=== PATIENT | male | born 1925 | race Caucasian/White ===

== ENCOUNTER 2017-02-27 12:13 | Inpatient (IN) | payer MEDICARE, OTHER ==
[~2017-02-27] VITALS: Ht 162.6 cm; Wt 81.6 kg
[2017-02-27 12:19] VITALS: BP 120/80
[2017-02-27] MEDS ORDERED: MILK OF MA2400 MG/10 GT (12:35)
[2017-02-27] MEDS ORDERED: ARTIFICIAL TEA1 EAC2 OP (12:35)
[2017-02-27] MEDS ORDERED: ATIVAN1 MG GT (12:35)
[2017-02-27] MEDS ORDERED: GEMFIBROZIL600 MG GT (12:35)
[2017-02-27] MEDS ORDERED: MIRALAX17 G2 GT (12:35)
[2017-02-27] MEDS ORDERED: FOLIC ACID1 MG GT (12:35)
[2017-02-27] MEDS ORDERED: NORCO 5-325 TA1 EAC1 GT (12:35)
[2017-02-27] MEDS ORDERED: MAGNESIUM OXID500 M2 GT (12:35)
[2017-02-27] MEDS ORDERED: HEPARIN SO5000 UNIT2 SUBQ (12:35)
[2017-02-27] MEDS ORDERED: LEVOTHYROXINE50 MCG GT (12:35)
[2017-02-27] MEDS ORDERED: HYDRALAZINE HCL25 M1 GT (12:35)
[2017-02-27] MEDS ORDERED: PERIDEX15 ML MM (12:37)
[2017-02-27] MEDS ORDERED: ZYPREXA ZYDIS5 MG GT (12:37)
[2017-02-27] MEDS ORDERED: PRO-STAT LIQUID30 ML GT (12:37)
[2017-02-27] MEDS ORDERED: OMEPRAZOLE20 M2 GT (12:37)
[2017-02-27 13:02] LABS: BASOPHILS % (AUTO) 1.1 % (0.0-2.0); EOSINOPHILS % (AUTO) 2.5 % (0.0-3.0); MEAN CORPUSCULAR HEMOGLOBIN 30.7 PG (27.0-31.0); MEAN CORPUSCULAR HGB CONC 31.9 G/DL (32.0-36.0); MEAN CORPUSCULAR VOLUME 96 FL (80-99); MEAN PLATELET VOLUME 10.6 FL (6.5-10.1); MONOCYTES % (AUTO) 8.4 % (1.0-10.0); NEUTROPHILS % (AUTO) 60.1 % (45.0-75.0); PLATELET COUNT 227 K/UL (150-450); RED BLOOD COUNT 4.47 M/UL (4.70-6.10); RED CELL DISTRIBUTION WIDTH 13.3 % (11.6-14.8); WHITE BLOOD COUNT 8.7 K/UL (4.8-10.8)
[2017-02-27 13:09] LABS: INR 1.1 (0.9-1.1)
[2017-02-27] MEDS ORDERED: LORazepam Inj 2mg/ml 1ml IV PRN (13:45)
[2017-02-27] MEDS ORDERED: Morphine Sulfate 4mg/ml Inj IVP PRN (13:45)
[2017-02-27] MEDS ORDERED: Miralax 17gm pkt ORAL PRN (13:45)
[2017-02-27] MEDS ORDERED: DuoNeb 0.5-3(2.5)mg/3ml neb HHN PRN (13:45)
[2017-02-27 13:56] LABS: ALANINE AMINOTRANSFERASE 12 U/L (3-41); ALBUMIN/GLOBULIN RATIO 0.9 (1.0-2.7); ANION GAP 17 (5-15); ASPARTATE AMINO TRANSFERASE 18 U/L (5-40); CALCIUM 9.9 mg/dL (8.6-10.2); CARBON DIOXIDE 24 mEQ/L (20-30); CHLORIDE 98 mEQ/L (98-107); CREATININE 0.6 mg/dL (0.7-1.2); HEMOLYSIS 4; LIPASE 9 U/L (< 60); POTASSIUM 4.5 mEQ/L (3.4-4.9); SODIUM 139 mEQ/L (135-145); TOTAL PROTEIN 7.5 g/dL (6.6-8.7)
[2017-02-27] MEDS: HydrALAZINE 25mg tab GT SCH ×2 (14:00→22:00)
[2017-02-27 14:05] LABS: APPEARANCE,URINE CLEAR; KETONES,URINE NEGATIVE (NEGATIVE); LEUKOCYTE ESTERASE ,URINE 3+ (NEGATIVE); NITRITE,URINE NEGATIVE (NEGATIVE); PH,URINE 7 (4.5-8.0); PROTEIN,URINE NEGATIVE (NEGATIVE); UROBILINOGEN,URINE NORMAL MG/DL (0.0-1.0)
[2017-02-27 14:16] LABS: BACTERIA,URINE MODERATE /HPF; RBC,URINE 15-20 /HPF (0 - 0); SQUAMOUS EPITHELIAL CELL,UR OCCASIONAL /LPF (NONE/OCC)
--- NOTE | 2017-02-27 14:51 | Emergency Room Report ---
History of Present Illness General Chief Complaint: Altered Level of Consciousness Source: Medical Record Present Illness HPI Patient presents emergency department today complaining of abdominal discomfort altered mental status. Patient was noted to be bradycardic at the alf and then sent here for further evaluation. Patient denies any fever or chest pain but he does complain of abdominal discomfort. Patient denies any nausea vomiting diarrhea chills. Symptoms noted to be moderate. No other modifying factors. No other associated signs and symptoms. No other complaints were noted. Patient's primary care physician Dr. Kobe Hernandez in no for patient had abnormal labs as well as recommended patient come in for further evaluation possibly rule out sepsis. Allergies: Coded Allergies: No Known Allergies (Unverified , 02/27/17) Patient History Past Medical History: HTN, other - Tracheostomy Past Surgical History: none Pertinent Family History: none Social History: Denies: alcohol use, drug use, smoking Reviewed Nursing Documentation: PMH: Agreed, PSxH: Agreed Nursing Documentation-PMH Past Medical History: No History, Except For Hx Hypertension: Yes Review of Systems All Other Systems: negative except mentioned in HPI Physical Exam Vital Signs Date Time Temp Pulse Resp B/P Pulse Ox O2 Delivery O2 Flow Rate FiO2 02/27/17 12:05 54 20 120/80 99 Mechanical Ventilator 02/27/17 12:18 45 Sp02 EP Interpretation: reviewed, normal General Appearance: mild distress Head: normocephalic Eyes: bilateral eye normal inspection ENT: moist mucus membranes Neck: full range of motion, supple Respiratory: normal inspection, lungs clear, normal breath sounds, no respiratory distress, no retraction, no wheezing Cardiovascular #1: regular rate, rhythm, no edema Gastrointestinal: normal inspection, normal bowel sounds, non tender, soft, no guarding, no hernia Genitourinary: no CVA tenderness Musculoskeletal: normal inspection, back normal, normal range of motion Neurologic: alert, responsive Psychiatric: normal inspection Skin: normal inspection, normal color, no rash Procedures Critical Care Time Critical Care Time Patient had a critical medical condition which untreated could potentially result in life or limb threatening injury. Total critical care time excluding procedures was approximately 45 minutes. Medical Decision Making Diagnostic Impression: Primary Impression: Acute abdominal pain Additional Impression: Bradycardia ER Course Patient presents emergency department today with acute bradycardia and abdominal discomfort. Differential considerations include acute coronary syndrome, electrolyte abnormality, infectious process just to name a few. Given the severity of the patient's presentation I felt this is a highly complex patient. This patient required extensive workup. Patient laboratory workup was not impressive. Given patient's bradycardia patient also has complicated history of the patient require admission to the hospital. Patient did receive a CT scan of the abdomen and pelvis because of the abdominal discomfort which shows evidence of acute pneumonia. Because this patient restart IV antibiotics. Blood cultures were obtained. Patient will be admitted to [facility] for further treatment. Case was discussed with Dr. Kobe Hernandez who evaluated patient emergency department. Labs Test 02/27/17 12:40 02/27/17 13:00 02/27/17 13:23 White Blood Count 8.7 K/UL (4.8-10.8) Red Blood Count 4.47 M/UL (4.70-6.10) Hemoglobin 13.7 G/DL (14.2-18.0) Hematocrit 43.0 % (42.0-52.0) Mean Corpuscular Volume 96 FL (80-99) Mean Corpuscular Hemoglobin 30.7 PG (27.0-31.0) Mean Corpuscular Hemoglobin Concent 31.9 G/DL (32.0-36.0) Red Cell Distribution Width 13.3 % (11.6-14.8) Platelet Count 227 K/UL (150-450) Mean Platelet Volume 10.6 FL (6.5-10.1) Neutrophils (%) (Auto) 60.1 % (45.0-75.0) Lymphocytes (%) (Auto) 28.0 % (20.0-45.0) Monocytes (%) (Auto) 8.4 % (1.0-10.0) Eosinophils (%) (Auto) 2.5 % (0.0-3.0) Basophils (%) (Auto) 1.1 % (0.0-2.0) Prothrombin Time 11.0 SEC (9.30-11.50) Prothromb Time International Ratio 1.1 (0.9-1.1) Activated Partial Thromboplast Time 29 SEC (23-33) Sodium Level 139 mEQ/L (135-145) Potassium Level 4.5 mEQ/L (3.4-4.9) Chloride Level 98 mEQ/L (98-107) Carbon Dioxide Level 24 mEQ/L (20-30) Anion Gap 17 (5-15) Blood Urea Nitrogen 21 mg/dL (7-23) Creatinine 0.6 mg/dL (0.7-1.2) Estimat Glomerular Filtration Rate mL/min (>60) Glucose Level 113 mg/dL (74-106) Calcium Level 9.9 mg/dL (8.6-10.2) Total Bilirubin 0.4 mg/dL (0.0-1.2) Aspartate Amino Transf (AST/SGOT) 18 U/L (5-40) Alanine Aminotransferase (ALT/SGPT) 12 U/L (3-41) Alkaline Phosphatase 110 U/L (40-129) Total Creatine Kinase 36 U/L (38-174) Total Protein 7.5 g/dL (6.6-8.7) Albumin 3.6 g/dL (3.5-5.2) Globulin 3.9 g/dL Albumin/Globulin Ratio 0.9 (1.0-2.7) Lipase 9 U/L (< 60) Lactic Acid Level 1.30 mmol/L (0.66-2.22) Urine Color Pale yellow Urine Appearance Clear Urine pH 7 (4.5-8.0) Urine Specific [place] 1.010 (1.005-1.035) Urine Protein Negative (NEGATIVE) Urine Glucose (UA) Negative (NEGATIVE) Urine Ketones Negative (NEGATIVE) Urine Occult Blood 4+ (NEGATIVE) Urine Nitrite Negative (NEGATIVE) Urine Bilirubin Negative (NEGATIVE) Urine Urobilinogen Normal MG/DL (0.0-1.0) Urine Leukocyte Esterase 3+ (NEGATIVE) Urine RBC 15-20 /HPF (0 - 0) Urine WBC 5-10 /HPF (0 - 0) Urine Squamous Epithelial Cells Occasional /LPF Urine Bacteria Moderate /HPF (NONE) EKG Diagnostic Results Rate: bradycardiac Rhythm: NSR ST Segments: no acute changes Rhythm Strip Diag. Results EP Interpretation: yes Rate: 52 Rhythm: no PVC's, no ectopy, other - bradycardia, sinus rhythm Last Vital Signs Date Time Temp Pulse Resp B/P Pulse Ox O2 Delivery O2 Flow Rate FiO2 02/27/17 12:19 20 120/80 99 Mechanical Ventilator 02/27/17 12:18 52 02/27/17 12:18 45 Status: improved Disposition: ADMITTED INPATIENT Condition: Serious Referrals: KOBE HERNANDEZ (PCP) QUAN GREENBERG M.D. Feb 27, 2017 14:51
[2017-02-27 14:57] VITALS: BP 105/41
--- NOTE | 2017-02-27 15:03 | Infectious Diseases Prog Note ---
Assessment/Plan Problems: (1) Sepsis Assessment & Plan: will start vancomycin and zosyn , send blood and sputum culture (2) Aspiration pneumonia Assessment & Plan: will send sputum culture, continue zosyn and vancomycin , monitor CXR (3) Acute and chronic respiratory failure Assessment & Plan: due to the above, intubated on mechanical ventilation , monitor ABG, and CXR (4) Chronic respiratory failure Assessment & Plan: S/P Trach, continue trach care , titrate O2 as needed (5) Acute abdominal pain Assessment & Plan: recommend CT abdomen for further eval , consult GI Subjective Allergies: Coded Allergies: No Known Allergies (Unverified , 02/27/17) Objective Vital Signs Last 24 Hour Vital Signs Date Time Temp Pulse Resp B/P Pulse Ox O2 Delivery O2 Flow Rate FiO2 02/27/17 14:57 47 20 105/41 99 Mechanical Ventilator 45 02/27/17 12:19 20 120/80 99 Mechanical Ventilator 02/27/17 12:18 52 24 Mechanical Ventilator 02/27/17 12:18 52 24 45 02/27/17 12:05 54 20 120/80 99 Mechanical Ventilator Height (Feet): 5 Height (Inches): 4.00 Weight (Pounds): 180 Laboratory Tests Test 02/27/17 12:40 02/27/17 13:00 02/27/17 13:23 White Blood Count 8.7 K/UL (4.8-10.8) Red Blood Count 4.47 M/UL (4.70-6.10) L Hemoglobin 13.7 G/DL (14.2-18.0) L Hematocrit 43.0 % (42.0-52.0) Mean Corpuscular Volume 96 FL (80-99) Mean Corpuscular Hemoglobin 30.7 PG (27.0-31.0) Mean Corpuscular Hemoglobin Concent 31.9 G/DL (32.0-36.0) L Red Cell Distribution Width 13.3 % (11.6-14.8) Platelet Count 227 K/UL (150-450) Mean Platelet Volume 10.6 FL (6.5-10.1) H Neutrophils (%) (Auto) 60.1 % (45.0-75.0) Lymphocytes (%) (Auto) 28.0 % (20.0-45.0) Monocytes (%) (Auto) 8.4 % (1.0-10.0) Eosinophils (%) (Auto) 2.5 % (0.0-3.0) Basophils (%) (Auto) 1.1 % (0.0-2.0) Prothrombin Time 11.0 SEC (9.30-11.50) Prothromb Time International Ratio 1.1 (0.9-1.1) Activated Partial Thromboplast Time 29 SEC (23-33) Sodium Level 139 mEQ/L (135-145) Potassium Level 4.5 mEQ/L (3.4-4.9) Chloride Level 98 mEQ/L (98-107) Carbon Dioxide Level 24 mEQ/L (20-30) Anion Gap 17 (5-15) H Blood Urea Nitrogen 21 mg/dL (7-23) Creatinine 0.6 mg/dL (0.7-1.2) L Estimat Glomerular Filtration Rate mL/min (>60) Glucose Level 113 mg/dL (74-106) H Calcium Level 9.9 mg/dL (8.6-10.2) Total Bilirubin 0.4 mg/dL (0.0-1.2) Aspartate Amino Transf (AST/SGOT) 18 U/L (5-40) Alanine Aminotransferase (ALT/SGPT) 12 U/L (3-41) Alkaline Phosphatase 110 U/L (40-129) Total Creatine Kinase 36 U/L (38-174) L Troponin I Pending Total Protein 7.5 g/dL (6.6-8.7) Albumin 3.6 g/dL (3.5-5.2) Globulin 3.9 g/dL Albumin/Globulin Ratio 0.9 (1.0-2.7) L Lipase 9 U/L (< 60) Lactic Acid Level 1.30 mmol/L (0.66-2.22) Urine Color Pale yellow Urine Appearance Clear Urine pH 7 (4.5-8.0) Urine Specific [place] 1.010 (1.005-1.035) Urine Protein Negative (NEGATIVE) Urine Glucose (UA) Negative (NEGATIVE) Urine Ketones Negative (NEGATIVE) Urine Occult Blood 4+ (NEGATIVE) H Urine Nitrite Negative (NEGATIVE) Urine Bilirubin Negative (NEGATIVE) Urine Urobilinogen Normal MG/DL (0.0-1.0) Urine Leukocyte Esterase 3+ (NEGATIVE) H Urine RBC 15-20 /HPF (0 - 0) H Urine WBC 5-10 /HPF (0 - 0) H Urine Squamous Epithelial Cells Occasional /LPF Urine Bacteria Moderate /HPF (NONE) H Current Medications Medications (Trade) Dose Ordered Sig/Kevin Route PRN Reason Start Time Stop Time Status Last Admin Dose Admin Acetaminophen (Tylenol) 650 mg Q4H PRN ORAL FEVER 02/27/17 13:45 03/29/17 13:44 UNV Albuterol/ Ipratropium 3 ml 3 ml EVERY 4 HOURS PRN HHN Shortness of Breath 02/27/17 13:45 03/04/17 13:44 UNV Dextrose STAT PRN IV Hypoglycemia 02/27/17 13:45 03/29/17 13:44 UNV Heparin Sodium (Porcine) (Heparin 5000 units/ml) 5,000 units EVERY 12 HOURS SUBQ 02/27/17 21:00 03/29/17 20:59 UNV Hydralazine HCl (Apresoline) 25 mg EVERY 8 HOURS GT 02/27/17 14:00 03/29/17 13:59 UNV Levothyroxine Sodium (Synthroid) 50 mcg DAILY GT 02/28/17 09:00 03/30/17 08:59 UNV Lorazepam (Ativan 2mg/ml 1ml) 2 mg EVERY 2 HOURS PRN IV For Anxiety 02/27/17 13:45 03/06/17 13:44 UNV Morphine Sulfate (Morphine Sulfate) 4 mg EVERY 4 HOURS PRN IVP Severe Pain (Pain Scale 7-10) 02/27/17 13:45 03/06/17 13:44 UNV Ondansetron HCl (Zofran) 4 mg Q6H PRN IVP Nausea & Vomiting 02/27/17 13:45 03/29/17 13:44 UNV Pantoprazole (Protonix) 40 mg DAILY IV 02/28/17 09:00 03/30/17 08:59 UNV Piperacillin Sod/ Tazobactam Sod/ Sodium Chloride (Zosyn/Sodium Chloride) 110 ml @ 27.5 mls/hr EVERY 6 HOURS IVPB 02/27/17 18:00 03/06/17 17:59 UNV Polyethylene Glycol (Miralax) 17 gm DAILYPRN PRN ORAL Constipation 02/27/17 13:45 03/29/17 13:44 UNV Vancomycin HCl/ Dextrose (Vancomycin/D5W) 275 ml @ 183.3 mls/ hr Q24H IV 02/28/17 23:00 03/05/17 22:59 ANIV Papito Don M.D. Feb 27, 2017 15:03
--- NOTE | 2017-02-27 15:05 | Diagnostic Imaging Report ---
Indication: Abdominal pain Technique: Spiral acquisitions obtained through the abdomen and pelvis. No oral contrast utilized, per emergency room physician request No IV contrast utilized, per referring physician request.. Multiplanar reconstructions were generated. Total dose length product 1038 mGycm. CTDIvol(s) 17, 13 mGy. Dose reduction achieved using automated exposure control Comparison: None Findings: There is dense consolidation in the posterior left lower lobe of the lung. Atelectatic changes are seen at both lung bases. The bones demonstrate degenerative spondylosis changes. They are osteoporotic. Lack of oral contrast severely limits assessment of the GI tract. The appendix is normal. Moderate amount of dense stool is seen throughout the colon. No evidence of diverticulosis or diverticulitis. No small bowel distention. No free or loculated intraperitoneal air or fluid is evident. There is a gastrostomy tube in good position. The distal esophagus is unremarkable. The duodenum is unremarkable. Lack of IV contrast limits assessment of the solid organs. The gallbladder contains gallstones. There is no biliary ductal dilatation. The liver is unremarkable. The pancreas is somewhat atrophic. The spleen is borderline enlarged, measuring 13.3 cm long axis dimension. The adrenals, kidneys are unremarkable. No renal or ureteral calculi, hydronephrosis, or hydroureter. The prostate is enlarged, indents the bladder floor, measures 4.5 cm AP by 6 cm transverse by 5.7 cm craniocaudad. It contains calcifications. There are small bilateral fat-containing inguinal hernias. No pelvic mass or adenopathy. Impression: Dense left lower lobe pulmonary parenchymal consolidation, likely pneumonia. Evaluation of the bowel is limited by lack of oral contrast. No definite acute enteric abnormal Possible mild constipation Gastrostomy in good position Borderline splenomegaly Prostatomegaly Cholelithiasis Incidental finding small bilateral fat-containing inguinal hernias The CT scanner at [facility] is accredited by the [employer] and the scans are performed using protocols designed to limit radiation exposure to as low as reasonably achievable to attain images of sufficient resolution adequate for diagnostic evaluation.
[2017-02-27 15:49] LABS: TROPONIN I < 0.30 ng/mL (<=0.30)
[2017-02-27] MEDS ORDERED: Cefepime HCl 1 GM in D5W 55 ML IVPB ONE (16:15)
[2017-02-27] MEDS ORDERED: Azithromycin 500 MG in D5W 275 ML IVPB ONE (16:15)
[2017-02-27] MEDS ORDERED: Vancomycin 1.5gm/D5W 250ml 325 ML IVPB ONE (16:15)
[2017-02-27] MEDS ORDERED: Azithromycin Inj IV ONE (16:48)
[2017-02-27 17:07] VITALS: BP 107/50
--- NOTE | 2017-02-27 17:16 | History and Physical Report ---
DATE OF ADMISSION: 02/27/2017 TIME SEEN: 2 p.m. CONSULTANTS: 1. Ritesh Cruz M.D. 2. Dr. Means. CHIEF COMPLAINT: Increased lethargy, weakness, fever, possible sepsis, and shortness of breath. BRIEF HISTORY: The patient is an 89-year-old male from [facility] presented with the above-mentioned diagnoses being diagnosed with aspiration pneumonia and sepsis being admitted to ICU shortly. Currently, calm, trach, vent, altered, lethargic in bed, in ICU. PAST MEDICAL HISTORY: Includes chronic respiratory failure and hypertension. PAST SURGICAL HISTORY: Tracheostomy. ALLERGIES: Denies. SOCIAL HISTORY: No smoking. No alcohol. No intravenous drug abuse. FAMILY HISTORY: Noncontributory. REVIEW OF SYSTEMS: Unavailable. PHYSICAL EXAMINATION: GENERAL: Lethargic in bed and nonverbal. VITAL SIGNS: Show temperature is not given , pulse 52, respirations 24, and blood pressure 120/80. CARDIOVASCULAR: No murmur. LUNGS: Poor air exchange. ABDOMEN: Positive bowel sounds. Soft, nontender, and nondistended. EXTREMITIES: No cyanosis, clubbing, or edema. NEUROLOGIC: The patient is flaccid in bed, not responding to questions and requests. LABORATORY DATA: Labs at this time show CBC is normal. BMP show creatinine 0.6 and glucose 113. Otherwise, BMP is normal. INR is 1.1 and PTT 29. Urinalysis showed 3+ leukocyte esterase. ASSESSMENT: 1. Respiratory failure. 2. Trach and vent. 3. Urinary tract infection. 4. Pneumonia. 5. Sepsis. 6. Hypertension. 7. Bradycardia. PLAN: 1. Continue premedications. 2. . 3. Antibiotics per Infectious Disease. 4. Blood pressure control. 5. Dietary followup. 6. Resume home medications. 7. OT, PT, and dietary evaluation. 8. CBC and BMP in the morning. 9. Dr. Cruz, Dr. Means, and Dr. Polk to consult. 10. We will continue to follow this patient medically. Saul Tang D.O. DR: RONALD JOB#: [id number] CC:
[2017-02-27] MEDS ORDERED: Cefepime 1gm vial ONE (18:00)
--- NOTE | 2017-02-27 18:02 | Consultation ---
DATE OF CONSULTATION: 02/27/2017 Infectious Disease Consultation CONSULTING PHYSICIAN: Papito Don M.D. REQUESTING PHYSICIAN: Saul Tang M.D. REASON FOR CONSULTATION: Sepsis, pneumonia, recommendation for antibiotics treatment. HISTORY OF PRESENT ILLNESS: The patient is an 89-year-old male, a longterm resident, with history of chronic respiratory failure, status post tracheostomy and hypertension was sent from longterm due to hypoxemia and altered mental status with abdominal discomfort. The patient was found to be bradycardic at the longterm and hypoxemic. He had no fever or chills. No chest pain, but complained of abdominal discomfort. The patient was evaluated in the emergency room and had a pulse of 54, was intubated, started on mechanical ventilation, and his oxygen saturation improved to 100%. The patient's x-ray of the chest was suspicious of pneumonia. So, he was started on vancomycin and Zosyn, and I was consulted by the primary provider for antibiotic treatment and further management. As of note, the patient is a poor historian, cannot provide any history, currently intubated. History was mainly obtained from the medical record. REVIEW OF SYSTEMS: Unable to obtain at this point. The patient cannot provide any history. PAST MEDICAL HISTORY: Significant for hypertension and chronic respiratory failure. PAST SURGICAL HISTORY: Negative. FAMILY HISTORY: Unable to obtain. SOCIAL HISTORY: He is longterm resident. No recent drugs, tobacco, or alcohol. ALLERGIES: He has no known drug allergy. MEDICATIONS: He is on Zosyn and vancomycin currently. For the rest of his medications, please refer to [facility]. LABORATORY DATA: Labs showed white count of 8.7, BUN of 21, and creatinine of 0.6. Urinalysis showed +3 leukocyte esterase, WBC 5 to 10, with moderate amount of bacteria. IMAGING: Chest x-ray showed questionable pneumonia. PHYSICAL EXAMINATION: VITAL SIGNS: Pulse 52, respirations 24, blood pressure 120/80, and saturation 99% on mechanical ventilation with FiO2 of 45. GENERAL: Elderly male, with tracheostomy, intubated, on mechanical ventilation, unresponsive, not in distress. HEENT: Normocephalic and atraumatic. Pupils are reactive to light. Pale sclerae. Dry oral mucosa with dry secretion. NECK: Supple with tracheostomy site looks intact. CARDIOVASCULAR: He is bradycardic. S1 and S2 positive. No murmur. LUNGS: He had diminished breathing sounds, mainly on the right side with crackles at the base. ABDOMEN: Soft, nontender, and nondistended. No organomegaly. No guarding. G-tube site looks intact. EXTREMITIES: No edema or cyanosis. SKIN: No rash or hives. ASSESSMENT AND RECOMMENDATION: 1. Sepsis, suspect due to pneumonia. We will start the patient on vancomycin and Zosyn empiric treatment. Send blood and sputum culture. 2. Aspiration pneumonia. We will send sputum culture. Continue Zosyn and vancomycin. Monitor chest x-ray. Titrate oxygen as needed. 3. Acute on chronic respiratory failure, status post intubation through his trach. Continue mechanical ventilation. Pulmonary is following. Monitor chest x-ray. 4. Acute abdominal pain. Rule out abdominal pathology. Recommend CT abdomen for further evaluation and consult GI as per primary. Thank you for the consult. Papito Don M.D. DR: JAMES JOB#: [id number] CC:
[2017-02-27 18:32] VITALS: BP 104/45
[2017-02-27 20:06] VITALS: BP 105/47
[2017-02-27 21:43] VITALS: BP 109/49
[2017-02-27] MEDS: Piperacillin/Tazobactam 3.375 GM in NS 110 ML IVPB SCH (22:02)
[2017-02-27] MEDS: Heparin 5000 units/ml inj SUBQ SCH (22:04)
--- NOTE | 2017-02-27 23:44 | Consultation ---
History of Present Illness General Chief Complaint: Altered Level of Consciousness Present Illness Allergies: Coded Allergies: No Known Allergies (Unverified , 02/27/17) Medication History Scheduled Amino Acids/Protein Hydrolys (Pro-Stat Liquid), 30 ML GT TWICE A DAY, (Reported) Chlorhexidine Gluconate (Peridex), 15 ML MM Q12HR, (Reported) Folic Acid* (Folic Acid*), 1 MG GT DAILY, (Reported) Gemfibrozil (Gemfibrozil*), 600 MG GT BID, (Reported) Heparin Sod (Porcine) (Heparin Sodium*), 5,000 UNITS SUBQ EVERY 12 HOURS, ( Reported) Hydralazine Hcl* (Hydralazine Hcl*), 25 MG GT EVERY 8 HOURS, (Reported) Levothyroxine Sodium* (Levothyroxine Sodium*), 50 MCG GT DAILY, (Reported) Lorazepam* (Ativan*), 1 MG GT Q6HR, (Reported) Magnesium Hydroxide* (Milk Of Magnesia*), 30 ML GT PRN, (Reported) Magnesium Oxide (Magnesium Oxide), 400 MG GT DAILY, (Reported) Olanzapine Zydis* (Zyprexa Zydis*), 5 MG GT DAILY, (Reported) Omeprazole (Omeprazole), 20 MG GT DAILY, (Reported) Polyethylene Glycol 3350* (Miralax*), 17 GM GT DAILY, (Reported) Scheduled PRN Hydrocodone Bit/Acetaminophen 5-325* (Urich 5-325 Tablet*), 1 TAB GT Q6HR PRN for For Pain, (Reported) Miscellaneous Medications Dextran 70/Hypromellose (Artificial Tears), 1 EACH OP, (Reported) Patient History Healthcare decision maker Resuscitation status Advanced Directive on File Physical Exam Last 24 Hour Vital Signs Date Time Temp Pulse Resp B/P Pulse Ox O2 Delivery O2 Flow Rate FiO2 02/27/17 23:18 81 20 45 02/27/17 22:00 109/49 02/27/17 21:43 97.3 57 18 109/49 94 Mechanical Ventilator 02/27/17 21:28 51 25 45 02/27/17 20:45 98.0 50 20 105/47 98 Mechanical Ventilator 45 47 02/27/17 20:06 98.0 47 20 105/47 98 Mechanical Ventilator 45 02/27/17 19:18 50 27 45 02/27/17 19:00 45 02/27/17 18:32 50 25 104/45 100 Mechanical Ventilator 45 02/27/17 17:07 50 25 107/50 99 Mechanical Ventilator 45 02/27/17 16:51 45 25 45 02/27/17 15:25 47 21 45 02/27/17 14:57 47 20 105/41 99 Mechanical Ventilator 45 02/27/17 13:27 49 22 45 02/27/17 12:19 20 120/80 99 Mechanical Ventilator 02/27/17 12:18 52 24 Mechanical Ventilator 02/27/17 12:18 52 24 45 02/27/17 12:05 54 20 120/80 99 Mechanical Ventilator Laboratory Tests Test 02/27/17 12:40 02/27/17 13:00 02/27/17 13:23 White Blood Count 8.7 K/UL (4.8-10.8) Red Blood Count 4.47 M/UL (4.70-6.10) L Hemoglobin 13.7 G/DL (14.2-18.0) L Hematocrit 43.0 % (42.0-52.0) Mean Corpuscular Volume 96 FL (80-99) Mean Corpuscular Hemoglobin 30.7 PG (27.0-31.0) Mean Corpuscular Hemoglobin Concent 31.9 G/DL (32.0-36.0) L Red Cell Distribution Width 13.3 % (11.6-14.8) Platelet Count 227 K/UL (150-450) Mean Platelet Volume 10.6 FL (6.5-10.1) H Neutrophils (%) (Auto) 60.1 % (45.0-75.0) Lymphocytes (%) (Auto) 28.0 % (20.0-45.0) Monocytes (%) (Auto) 8.4 % (1.0-10.0) Eosinophils (%) (Auto) 2.5 % (0.0-3.0) Basophils (%) (Auto) 1.1 % (0.0-2.0) Prothrombin Time 11.0 SEC (9.30-11.50) Prothromb Time International Ratio 1.1 (0.9-1.1) Activated Partial Thromboplast Time 29 SEC (23-33) Sodium Level 139 mEQ/L (135-145) Potassium Level 4.5 mEQ/L (3.4-4.9) Chloride Level 98 mEQ/L (98-107) Carbon Dioxide Level 24 mEQ/L (20-30) Anion Gap 17 (5-15) H Blood Urea Nitrogen 21 mg/dL (7-23) Creatinine 0.6 mg/dL (0.7-1.2) L Estimat Glomerular Filtration Rate mL/min (>60) Glucose Level 113 mg/dL (74-106) H Calcium Level 9.9 mg/dL (8.6-10.2) Total Bilirubin 0.4 mg/dL (0.0-1.2) Aspartate Amino Transf (AST/SGOT) 18 U/L (5-40) Alanine Aminotransferase (ALT/SGPT) 12 U/L (3-41) Alkaline Phosphatase 110 U/L (40-129) Total Creatine Kinase 36 U/L (38-174) L Troponin I < 0.30 ng/mL (<=0.30) Total Protein 7.5 g/dL (6.6-8.7) Albumin 3.6 g/dL (3.5-5.2) Globulin 3.9 g/dL Albumin/Globulin Ratio 0.9 (1.0-2.7) L Lipase 9 U/L (< 60) Lactic Acid Level 1.30 mmol/L (0.66-2.22) Urine Color Pale yellow Urine Appearance Clear Urine pH 7 (4.5-8.0) Urine Specific [place] 1.010 (1.005-1.035) Urine Protein Negative (NEGATIVE) Urine Glucose (UA) Negative (NEGATIVE) Urine Ketones Negative (NEGATIVE) Urine Occult Blood 4+ (NEGATIVE) H Urine Nitrite Negative (NEGATIVE) Urine Bilirubin Negative (NEGATIVE) Urine Urobilinogen Normal MG/DL (0.0-1.0) Urine Leukocyte Esterase 3+ (NEGATIVE) H Urine RBC 15-20 /HPF (0 - 0) H Urine WBC 5-10 /HPF (0 - 0) H Urine Squamous Epithelial Cells Occasional /LPF Urine Bacteria Moderate /HPF (NONE) H Height (Feet): 5 Height (Inches): 4.00 Weight (Pounds): 180 Medications Current Medications Medications (Trade) Dose Ordered Sig/Kevin Route PRN Reason Start Time Stop Time Status Last Admin Dose Admin Acetaminophen (Tylenol) 650 mg Q4H PRN ORAL FEVER 02/27/17 13:45 03/29/17 13:44 Albuterol/ Ipratropium (DuoNeb 0.5-3(2.5)mg/3ml) 3 ml Q4H PRN HHN Shortness of Breath 02/27/17 13:45 03/04/17 13:44 Dextrose STAT PRN IV Hypoglycemia 02/27/17 13:45 03/29/17 13:44 Heparin Sodium (Porcine) (Heparin 5000 units/ml) 5,000 units EVERY 12 HOURS SUBQ 02/27/17 21:00 03/29/17 20:59 02/27/17 22:04 Hydralazine HCl (Apresoline) 25 mg EVERY 8 HOURS GT 02/27/17 14:00 03/29/17 13:59 Levothyroxine Sodium (Synthroid) 50 mcg DAILY GT 02/28/17 09:00 03/30/17 08:59 Lorazepam (Ativan 2mg/ml 1ml) 2 mg Q2H PRN IV For Anxiety 02/27/17 13:45 03/06/17 13:44 Morphine Sulfate (Morphine Sulfate) 4 mg Q4H PRN IVP Severe Pain (Pain Scale 7-10) 02/27/17 13:45 03/06/17 13:44 Ondansetron HCl (Zofran) 4 mg Q6H PRN IVP Nausea & Vomiting 02/27/17 13:45 03/29/17 13:44 Pantoprazole 40 mg 40 mg DAILY IV 02/28/17 09:00 03/30/17 08:59 Piperacillin Sod/ Tazobactam Sod/ Sodium Chloride (Zosyn/Sodium Chloride) 110 ml @ 27.5 mls/hr Q8HR IVPB 02/27/17 22:00 03/06/17 21:59 02/27/17 22:02 Polyethylene Glycol (Miralax) 17 gm DAILYPRN PRN ORAL Constipation 02/27/17 13:45 03/29/17 13:44 Vancomycin HCl (Vanco rx to dose) 1 ea DAILY PRN MISC . 02/27/17 20:15 03/29/17 20:14 Vancomycin HCl/ Dextrose (Vancomycin/D5W) 325 ml @ 162.5 mls/ hr Q24H IVPB 02/28/17 18:00 03/05/17 17:59 CRISTIAN HURLEY Feb 27, 2017 23:44
[2017-02-28] VITALS: BP 110/43
[2017-02-28] MEDS: HydrALAZINE 25mg tab GT SCH (05:05)
[2017-02-28] MEDS: Piperacillin/Tazobactam 3.375 GM in NS 110 ML IVPB SCH ×3 (05:12→21:59)
[2017-02-28 05:22] LABS: BASOPHILS % (AUTO) 0.9 % (0.0-2.0); EOSINOPHILS % (AUTO) 2.3 % (0.0-3.0); LYMPHOCYTES % (AUTO) 28.9 % (20.0-45.0); MEAN CORPUSCULAR HEMOGLOBIN 32.4 PG (27.0-31.0); MEAN CORPUSCULAR HGB CONC 33.5 G/DL (32.0-36.0); MEAN CORPUSCULAR VOLUME 97 FL (80-99); MEAN PLATELET VOLUME 10.4 FL (6.5-10.1); MONOCYTES % (AUTO) 9.5 % (1.0-10.0); NEUTROPHILS % (AUTO) 58.4 % (45.0-75.0); PLATELET COUNT 219 K/UL (150-450); RED CELL DISTRIBUTION WIDTH 13.2 % (11.6-14.8); WHITE BLOOD COUNT 9.3 K/UL (4.8-10.8)
[2017-02-28 05:59] LABS: ANION GAP 17 (5-15); CALCIUM 9.5 mg/dL (8.6-10.2); CARBON DIOXIDE 22 mEQ/L (20-30); CHLORIDE 103 mEQ/L (98-107); CREATININE 0.6 mg/dL (0.7-1.2); HEMOLYSIS 8; PHOSPHORUS 2.3 mg/dL (2.5-4.8); POTASSIUM 4.1 mEQ/L (3.4-4.9); SODIUM 142 mEQ/L (135-145)
[2017-02-28 08:00] VITALS: BP 100/64
--- NOTE | 2017-02-28 08:24 | Diagnostic Imaging Report ---
Indication: COUGH, shortness of breath Technique: One view of the chest Comparison: none Findings: There is mild generalized pulmonary official prominence. No definite congestion, infiltrates, effusions. The heart is borderline enlarged. Tracheostomy Impression: Mild generalized interstitial prominence, suspect related to senescent changes. No definite acute process Tracheostomy
[2017-02-28] MEDS: Heparin 5000 units/ml inj SUBQ SCH ×2 (08:46→20:41)
[2017-02-28] MEDS ORDERED: Pantoprazole Inj IV SCH (09:00)
[2017-02-28] MEDS ORDERED: Tubing IV Secondary IV ONE (10:45)
[2017-02-28] MEDS ORDERED: NS 275ml ONE (10:45)
[2017-02-28 12:00] VITALS: BP 109/60
--- NOTE | 2017-02-28 12:40 | Diagnostic Imaging Report ---
APPROVED REPORT CPT Code: 62307 Present Symptoms Shortness of breath BILATERAL: Imaging reveals a patent deep venous system bilaterally. There is no evidence of thrombus within the femoral, popliteal or tibial segments. The greater saphenous veins are also within normal limits. Doppler indicates normal spontaneous flow within these segments.
[2017-02-28 12:45] LABS: ABG ALLEN TEST POSITIVE; ABG BASE EXCESS 2.5
--- NOTE | 2017-02-28 13:16 | General Progress Note ---
Assessment/Plan Problem List: (1) Chronic respiratory failure ICD Codes: J96.10 - Chronic respiratory failure, unspecified whether with hypoxia or hypercapnia SNOMED: 29848563 (2) Aspiration pneumonia ICD Codes: J69.0 - Pneumonitis due to inhalation of food and vomit SNOMED: 811713544 (3) Sepsis ICD Codes: A41.9 - Sepsis, unspecified organism SNOMED: 20195479 (4) Acute and chronic respiratory failure ICD Codes: J96.20 - Acute and chronic respiratory failure, unspecified whether with hypoxia or hypercapnia SNOMED: 91750486, 46322773 (5) Bradycardia ICD Codes: R00.1 - Bradycardia, unspecified SNOMED: 75239718 (6) Acute abdominal pain ICD Codes: R10.9 - Unspecified abdominal pain SNOMED: 985808641 Status: stable, progressing, tolerating diet Assessment/Plan vent abx gi eval ot pt diet cbc bmp am Subjective Constitutional: Reports: weakness Allergies: Coded Allergies: No Known Allergies (Unverified , 02/27/17) All Systems: reviewed and negative except above Subjective trach vent altered Objective Last 24 Hour Vital Signs Date Time Temp Pulse Resp B/P Pulse Ox O2 Delivery O2 Flow Rate FiO2 02/28/17 12:36 54 18 35 02/28/17 12:00 98.2 52 17 109/60 98 Mechanical Ventilator 35 02/28/17 12:00 45 02/28/17 12:00 55 02/28/17 11:14 50 16 35 02/28/17 08:53 48 18 35 02/28/17 08:00 50 02/28/17 08:00 98.1 50 19 100/64 99 Mechanical Ventilator 35 02/28/17 08:00 45 02/28/17 07:10 49 17 35 02/28/17 05:05 110/43 02/28/17 05:00 50 20 35 02/28/17 04:00 40 02/28/17 04:00 45 02/28/17 04:00 140 02/28/17 03:10 80 16 35 02/28/17 01:25 82 16 35 02/28/17 00:00 51 02/28/17 00:00 45 02/28/17 00:00 97.4 55 18 110/43 95 Mechanical Ventilator 02/27/17 23:18 81 20 45 02/27/17 22:00 109/49 02/27/17 21:43 97.3 57 18 109/49 94 Mechanical Ventilator 02/27/17 21:28 51 25 45 02/27/17 21:00 50 02/27/17 21:00 45 02/27/17 20:45 98.0 50 20 105/47 98 Mechanical Ventilator 45 47 02/27/17 20:06 98.0 47 20 105/47 98 Mechanical Ventilator 45 02/27/17 19:18 50 27 45 02/27/17 19:00 45 02/27/17 18:32 50 25 104/45 100 Mechanical Ventilator 45 02/27/17 17:07 50 25 107/50 99 Mechanical Ventilator 45 02/27/17 16:51 45 25 45 02/27/17 15:25 47 21 45 02/27/17 14:57 47 20 105/41 99 Mechanical Ventilator 45 02/27/17 13:27 49 22 45 Intake and Output 02/27/17 02/28/17 19:00 07:00 Intake Total 1250 ml 595.0 ml Balance 1250 ml 595.0 ml Intake Oral 0 ml Free Water 100 ml IV Total 1250 ml 165.0 ml Tube Feeding 330 ml Laboratory Tests 02/27/17 13:23: Urine Color Pale yellow, Urine Appearance Clear, Urine pH 7, Urine Specific [place] 1.010, Urine Protein Negative, Urine Glucose (UA) Negative, Urine Ketones Negative, Urine Occult Blood 4+H, Urine Nitrite Negative, Urine Bilirubin Negative, Urine Urobilinogen Normal, Urine Leukocyte Esterase 3+H, Urine RBC 15-20H, Urine WBC 5-10H, Urine Squamous Epithelial Cells Occasional, Urine Bacteria ModerateH 02/28/17 03:30: White Blood Count 9.3, Red Blood Count 3.80L, Hemoglobin 12.3L, Hematocrit 36.7L , Mean Corpuscular Volume 97, Mean Corpuscular Hemoglobin 32.4H, Mean Corpuscular Hemoglobin Concent 33.5, Red Cell Distribution Width 13.2, Platelet Count 219, Mean Platelet Volume 10.4H, Neutrophils (%) (Auto) 58.4, Lymphocytes (%) (Auto) 28.9, Monocytes (%) (Auto) 9.5, Eosinophils (%) (Auto) 2.3, Basophils (%) (Auto) 0.9, Sodium Level 142, Potassium Level 4.1, Chloride Level 103, Carbon Dioxide Level 22, Anion Gap 17H, Blood Urea Nitrogen 17, Creatinine 0.6L, Estimat Glomerular Filtration Rate , Glucose Level 104, Calcium Level 9.5 , Phosphorus Level 2.3L, Albumin 3.2L 02/28/17 12:32: Arterial Blood pH 7.510H, Arterial Blood Partial Pressure CO2 31.0L, Arterial Blood Partial Pressure O2 103.8H, Arterial Blood HCO3 24.7, Arterial Blood Oxygen Saturation 98.1H, Arterial Blood Base Excess 2.5, Albin Test Positive Height (Feet): 5 Height (Inches): 4.00 Weight (Pounds): 180 General Appearance: lethargic, confused EENT: normal ENT inspection Neck: normal alignment Cardiovascular: normal peripheral pulses, normal rate, regular rhythm Respiratory/Chest: chest wall non-tender, lungs clear, decreased breath sounds Abdomen: normal bowel sounds, non tender, soft Extremities: normal inspection Edema: no edema noted Arm (L), no edema noted Arm (R), no edema noted Leg (L), no edema noted Leg (R), no edema noted Pedal (L), no edema noted Pedal (R), no edema noted Generalized Neurologic: motor weakness Skin: normal pigmentation, warm/dry KOBE HERNANDEZ Feb 28, 2017 13:16
--- NOTE | 2017-02-28 13:35 | Infectious Diseases Prog Note ---
Assessment/Plan Problems: (1) Sepsis Assessment & Plan: due to pneumonia and UTI, on vancomycin and zosyn , await blood and sputum culture (2) Aspiration pneumonia Assessment & Plan: await sputum culture, continue zosyn and vancomycin , monitor CXR (3) Acute and chronic respiratory failure Assessment & Plan: due to the above, intubated on mechanical ventilation , monitor ABG, and CXR (4) Chronic respiratory failure Assessment & Plan: S/P Trach, continue trach care , titrate O2 as needed (5) Acute abdominal pain Assessment & Plan: CT abdomen didn't show any abdominal pathology , further management as per primary team Subjective ROS Limited/Unobtainable: Yes Allergies: Coded Allergies: No Known Allergies (Unverified , 02/27/17) Subjective he was more awake and alert, communicating with his grand son at the bedside, afebrile. not on pressors Objective Vital Signs Last 24 Hour Vital Signs Date Time Temp Pulse Resp B/P Pulse Ox O2 Delivery O2 Flow Rate FiO2 02/28/17 12:36 54 18 35 02/28/17 12:00 98.2 52 17 109/60 98 Mechanical Ventilator 35 02/28/17 12:00 45 02/28/17 12:00 55 02/28/17 11:14 50 16 35 02/28/17 08:53 48 18 35 02/28/17 08:00 50 02/28/17 08:00 98.1 50 19 100/64 99 Mechanical Ventilator 35 02/28/17 08:00 45 02/28/17 07:10 49 17 35 02/28/17 05:05 110/43 02/28/17 05:00 50 20 35 02/28/17 04:00 40 02/28/17 04:00 45 02/28/17 04:00 140 02/28/17 03:10 80 16 35 02/28/17 01:25 82 16 35 02/28/17 00:00 51 02/28/17 00:00 45 02/28/17 00:00 97.4 55 18 110/43 95 Mechanical Ventilator 02/27/17 23:18 81 20 45 02/27/17 22:00 109/49 02/27/17 21:43 97.3 57 18 109/49 94 Mechanical Ventilator 02/27/17 21:28 51 25 45 02/27/17 21:00 50 02/27/17 21:00 45 02/27/17 20:45 98.0 50 20 105/47 98 Mechanical Ventilator 45 47 02/27/17 20:06 98.0 47 20 105/47 98 Mechanical Ventilator 45 02/27/17 19:18 50 27 45 02/27/17 19:00 45 02/27/17 18:32 50 25 104/45 100 Mechanical Ventilator 45 02/27/17 17:07 50 25 107/50 99 Mechanical Ventilator 45 02/27/17 16:51 45 25 45 02/27/17 15:25 47 21 45 02/27/17 14:57 47 20 105/41 99 Mechanical Ventilator 45 Height (Feet): 5 Height (Inches): 4.00 Weight (Pounds): 180 General Appearance: WD/WN, no acute distress HEENT: normocephalic, atraumatic, anicteric, mucous membranes moist, supple, status post trach Respiratory/Chest: normal breath sounds, no respiratory distress, no accessory muscle use, decreased breath sounds, crackles/rales Cardiovascular: normal peripheral pulses, normal rate, regular rhythm, no gallop/murmur, no JVD Abdomen: normal bowel sounds, soft, non tender, no organomegaly, non distended , no mass, no scars Extremities: no cyanosis, no clubbing Skin: no rash, no lesions, ulcers Microbiology Date/Time Source Procedure Growth Status 02/27/17 13:23 Urine,Clean Catch Urine Culture - Preliminary Resulted Laboratory Tests Test 02/28/17 03:30 02/28/17 12:32 White Blood Count 9.3 K/UL (4.8-10.8) Red Blood Count 3.80 M/UL (4.70-6.10) L Hemoglobin 12.3 G/DL (14.2-18.0) L Hematocrit 36.7 % (42.0-52.0) L Mean Corpuscular Volume 97 FL (80-99) Mean Corpuscular Hemoglobin 32.4 PG (27.0-31.0) H Mean Corpuscular Hemoglobin Concent 33.5 G/DL (32.0-36.0) Red Cell Distribution Width 13.2 % (11.6-14.8) Platelet Count 219 K/UL (150-450) Mean Platelet Volume 10.4 FL (6.5-10.1) H Neutrophils (%) (Auto) 58.4 % (45.0-75.0) Lymphocytes (%) (Auto) 28.9 % (20.0-45.0) Monocytes (%) (Auto) 9.5 % (1.0-10.0) Eosinophils (%) (Auto) 2.3 % (0.0-3.0) Basophils (%) (Auto) 0.9 % (0.0-2.0) Sodium Level 142 mEQ/L (135-145) Potassium Level 4.1 mEQ/L (3.4-4.9) Chloride Level 103 mEQ/L (98-107) Carbon Dioxide Level 22 mEQ/L (20-30) Anion Gap 17 (5-15) H Blood Urea Nitrogen 17 mg/dL (7-23) Creatinine 0.6 mg/dL (0.7-1.2) L Estimat Glomerular Filtration Rate mL/min (>60) Glucose Level 104 mg/dL (74-106) Calcium Level 9.5 mg/dL (8.6-10.2) Phosphorus Level 2.3 mg/dL (2.5-4.8) L Albumin 3.2 g/dL (3.5-5.2) L Arterial Blood pH 7.510 (7.350-7.450) Arterial Blood Partial Pressure CO2 31.0 mmHg (35.0-45.0) L Arterial Blood Partial Pressure O2 103.8 mmHg (75.0-100.0) H Arterial Blood HCO3 24.7 mmol/L (22.0-26.0) Arterial Blood Oxygen Saturation 98.1 % (92.0-98.0) H Arterial Blood Base Excess 2.5 Albin Test Positive Current Medications Medications (Trade) Dose Ordered Sig/Kevin Route PRN Reason Start Time Stop Time Status Last Admin Dose Admin Acetaminophen (Tylenol) 650 mg Q4H PRN ORAL FEVER 02/27/17 13:45 03/29/17 13:44 Albuterol/ Ipratropium (DuoNeb 0.5-3(2.5)mg/3ml) 3 ml Q4H PRN HHN Shortness of Breath 02/27/17 13:45 03/04/17 13:44 Dextrose STAT PRN IV Hypoglycemia 02/27/17 13:45 03/29/17 13:44 Heparin Sodium (Porcine) (Heparin 5000 units/ml) 5,000 units EVERY 12 HOURS SUBQ 02/27/17 21:00 03/29/17 20:59 02/28/17 08:46 Levothyroxine Sodium (Synthroid) 50 mcg DAILY GT 02/28/17 09:00 03/30/17 08:59 02/28/17 08:45 Lorazepam (Ativan 2mg/ml 1ml) 2 mg Q2H PRN IV For Anxiety 02/27/17 13:45 03/06/17 13:44 Morphine Sulfate (Morphine Sulfate) 4 mg Q4H PRN IVP Severe Pain (Pain Scale 7-10) 02/27/17 13:45 03/06/17 13:44 Ondansetron HCl (Zofran) 4 mg Q6H PRN IVP Nausea & Vomiting 02/27/17 13:45 03/29/17 13:44 Pantoprazole 40 mg 40 mg DAILY IV 02/28/17 09:00 03/30/17 08:59 02/28/17 08:45 Piperacillin Sod/ Tazobactam Sod/ Sodium Chloride (Zosyn/Sodium Chloride) 110 ml @ 27.5 mls/hr Q8HR IVPB 02/27/17 22:00 03/06/17 21:59 02/28/17 05:12 Polyethylene Glycol (Miralax) 17 gm DAILYPRN PRN ORAL Constipation 02/27/17 13:45 03/29/17 13:44 Sodium Chloride (Sodium Chloride 1000ml bag) 1,000 ml @ 100 mls/hr Q10H IV 02/28/17 12:45 03/30/17 12:44 02/28/17 13:04 Vancomycin HCl 1 ea 1 ea DAILY PRN MISC . 02/27/17 20:15 03/29/17 20:14 Vancomycin HCl/ Dextrose (Vancomycin/D5W) 325 ml @ 162.5 mls/ hr Q24H IVPB 02/28/17 18:00 03/05/17 17:59 Papito Don M.D. Feb 28, 2017 13:35
--- NOTE | 2017-02-28 14:42 | Pulmonology Progress Note ---
Assessment/Plan Assessment/Plan ASSESSMENT sepsis aspiration PNA UTI acute on chronic respiratory failure profound bradycardia VDRF.trach acute abdominal pain cardiomyopathy dysphagia, G tube PLAN OF CARE ADDIE status abx, ID follows fup with cx Vent/trach care pulmonary toeitl ABG stable on current settings, keep as os and tatirate as needed fup wtih CXR CT C/A/P Dense left lower lobe pulmonary parenchymal consolidation, likely pneumonia. No definite acute enteric abnormality Possible mild constipation Gastrostomy in good position Borderline splenomegaly Prostatomegaly Cholelithiasis get abdominal US due to findings of cholelithiasis, but LFT/bili WNL strict aspiration precautions, GT feeding, monitor tolerance ECG with profound bradycardia ?sick sinus syndrome cardio eval pending likely will need pacemaker ECHO with EF 40-45% will need medical management for systolic heart failure - per cardio discretion DVT GI prophylaxis pain management bowel regimen case discussed and evaluated by supervising physician Subjective Allergies: Coded Allergies: No Known Allergies (Unverified , 02/27/17) Subjective afebrile, no leukocytosis remain in sinus federico 40th Objective Last 24 Hour Vital Signs Date Time Temp Pulse Resp B/P Pulse Ox O2 Delivery O2 Flow Rate FiO2 02/28/17 12:36 54 18 35 02/28/17 12:00 98.2 52 17 109/60 98 Mechanical Ventilator 35 02/28/17 12:00 45 02/28/17 12:00 55 02/28/17 11:14 50 16 35 02/28/17 08:53 48 18 35 02/28/17 08:00 50 02/28/17 08:00 98.1 50 19 100/64 99 Mechanical Ventilator 35 02/28/17 08:00 45 02/28/17 07:10 49 17 35 02/28/17 05:05 110/43 02/28/17 05:00 50 20 35 02/28/17 04:00 40 02/28/17 04:00 45 02/28/17 04:00 140 02/28/17 03:10 80 16 35 02/28/17 01:25 82 16 35 02/28/17 00:00 51 02/28/17 00:00 45 02/28/17 00:00 97.4 55 18 110/43 95 Mechanical Ventilator 02/27/17 23:18 81 20 45 02/27/17 22:00 109/49 02/27/17 21:43 97.3 57 18 109/49 94 Mechanical Ventilator 02/27/17 21:28 51 25 45 02/27/17 21:00 50 02/27/17 21:00 45 02/27/17 20:45 98.0 50 20 105/47 98 Mechanical Ventilator 45 47 02/27/17 20:06 98.0 47 20 105/47 98 Mechanical Ventilator 45 02/27/17 19:18 50 27 45 02/27/17 19:00 45 02/27/17 18:32 50 25 104/45 100 Mechanical Ventilator 45 02/27/17 17:07 50 25 107/50 99 Mechanical Ventilator 45 02/27/17 16:51 45 25 45 02/27/17 15:25 47 21 45 02/27/17 14:57 47 20 105/41 99 Mechanical Ventilator 45 Intake and Output 02/27/17 02/28/17 19:00 07:00 Intake Total 1250 ml 595.0 ml Balance 1250 ml 595.0 ml Intake Oral 0 ml Free Water 100 ml IV Total 1250 ml 165.0 ml Tube Feeding 330 ml General Appearance: other - bedridden elderly vent dependent male Vent AC 600- 35-16 HEENT: normocephalic, atraumatic, status post trach - Shiley#6, secretions scant, clear, thick Respiratory/Chest: no respiratory distress, rhonchi - few scattered Cardiovascular: regular rhythm, bradycardia Abdomen: normal bowel sounds, soft, non tender, other - G tube Extremities: no edema Neurologic/Psychiatric: abnormal gait - bedridden, alert - awake, porrly but responsive Musculoskeletal: atrophy - BLE Microbiology Date/Time Source Procedure Growth Status 02/27/17 13:23 Urine,Clean Catch Urine Culture - Preliminary Resulted Laboratory Tests 02/28/17 03:30: White Blood Count 9.3, Red Blood Count 3.80L, Hemoglobin 12.3L, Hematocrit 36.7L , Mean Corpuscular Volume 97, Mean Corpuscular Hemoglobin 32.4H, Mean Corpuscular Hemoglobin Concent 33.5, Red Cell Distribution Width 13.2, Platelet Count 219, Mean Platelet Volume 10.4H, Neutrophils (%) (Auto) 58.4, Lymphocytes (%) (Auto) 28.9, Monocytes (%) (Auto) 9.5, Eosinophils (%) (Auto) 2.3, Basophils (%) (Auto) 0.9, Sodium Level 142, Potassium Level 4.1, Chloride Level 103, Carbon Dioxide Level 22, Anion Gap 17H, Blood Urea Nitrogen 17, Creatinine 0.6L, Estimat Glomerular Filtration Rate , Glucose Level 104, Calcium Level 9.5 , Phosphorus Level 2.3L, Albumin 3.2L 02/28/17 12:32: Arterial Blood pH 7.510H, Arterial Blood Partial Pressure CO2 31.0L, Arterial Blood Partial Pressure O2 103.8H, Arterial Blood HCO3 24.7, Arterial Blood Oxygen Saturation 98.1H, Arterial Blood Base Excess 2.5, Albin Test Positive Current Medications Medications (Trade) Dose Ordered Sig/Kevin Route PRN Reason Start Time Stop Time Status Last Admin Dose Admin Acetaminophen (Tylenol) 650 mg Q4H PRN ORAL FEVER 02/27/17 13:45 03/29/17 13:44 Albuterol/ Ipratropium (DuoNeb 0.5-3(2.5)mg/3ml) 3 ml Q4H PRN HHN Shortness of Breath 02/27/17 13:45 03/04/17 13:44 Dextrose STAT PRN IV Hypoglycemia 02/27/17 13:45 03/29/17 13:44 Heparin Sodium (Porcine) (Heparin 5000 units/ml) 5,000 units EVERY 12 HOURS SUBQ 02/27/17 21:00 03/29/17 20:59 02/28/17 08:46 Levothyroxine Sodium (Synthroid) 50 mcg DAILY GT 02/28/17 09:00 03/30/17 08:59 02/28/17 08:45 Lorazepam (Ativan 2mg/ml 1ml) 2 mg Q2H PRN IV For Anxiety 02/27/17 13:45 03/06/17 13:44 Morphine Sulfate (Morphine Sulfate) 4 mg Q4H PRN IVP Severe Pain (Pain Scale 7-10) 02/27/17 13:45 03/06/17 13:44 Ondansetron HCl (Zofran) 4 mg Q6H PRN IVP Nausea & Vomiting 02/27/17 13:45 03/29/17 13:44 Pantoprazole 40 mg 40 mg DAILY IV 02/28/17 09:00 03/30/17 08:59 02/28/17 08:45 Piperacillin Sod/ Tazobactam Sod/ Sodium Chloride (Zosyn/Sodium Chloride) 110 ml @ 27.5 mls/hr Q8HR IVPB 02/27/17 22:00 03/06/17 21:59 02/28/17 14:10 Polyethylene Glycol (Miralax) 17 gm DAILYPRN PRN ORAL Constipation 02/27/17 13:45 03/29/17 13:44 Sodium Chloride (Sodium Chloride 1000ml bag) 1,000 ml @ 100 mls/hr Q10H IV 02/28/17 12:45 03/30/17 12:44 02/28/17 13:04 Vancomycin HCl 1 ea 1 ea DAILY PRN MISC . 02/27/17 20:15 03/29/17 20:14 Vancomycin HCl/ Dextrose (Vancomycin/D5W) 325 ml @ 162.5 mls/ hr Q24H IVPB 02/28/17 18:00 03/05/17 17:59 Nayely Davidson NP ([facility]anchte[facility]) Feb 28, 2017 14:42
--- NOTE | 2017-02-28 14:48 | GI Initial Consult Note ---
Lucero Thakkar N.P. 02/28/17 1448: History of Present Illness General Date patient seen: Feb 28, 2017 Time patient seen: 14:45 Reason for Hospitalization: Altered Level of Consciousness Referring physician: KOBE HERNANDEZ Reason for Consultation: ABDOMINAL PAIN Present Illness HPI Patient presents emergency department today complaining of abdominal discomfort altered mental status. Patient was noted to be bradycardic at the care home and then sent here for further evaluation. Patient denies any fever or chest pain but he does complain of abdominal discomfort. Patient denies any nausea vomiting diarrhea chills. Symptoms noted to be moderate. No other modifying factors. No other associated signs and symptoms. No other complaints were noted. Patient's primary care physician Dr. Kobe Hernandez in no for patient had abnormal labs as well as recommended patient come in for further evaluation possibly rule out sepsis. GI Consult. HPI as noted above. GI consulted for abdominal pain. ROS limited , non verbal with tracheostomy. Pt seen on floor, awake alert NAD with no active s/sx of N/V/D. Pt presents today with mild anemia and hypoalbuminemia. Lipase WNL. CT shows possible constipation. Unknown history of endoscopic procedures. Home Meds Reported Medications Olanzapine Zydis* (ZYPREXA ZYDIS*) 5 Mg Tab.rapdis, 5 MG GT DAILY, #30 TAB 0 Refills 02/27/17 Amino Acids/Protein Hydrolys (PRO-STAT LIQUID) 30 Ml Liquid.pkt, 30 ML GT TWICE A DAY, ML 02/27/17 Chlorhexidine Gluconate (Peridex) 15 Ml Mouthwash, 15 ML MM Q12HR, ML 02/27/17 Omeprazole (OMEPRAZOLE) 20 Mg Capsule.dr, 20 MG GT DAILY, CAP 02/27/17 Hydrocodone Bit/Acetaminophen 5-325* (NORCO 5-325 TABLET*) 1 Each Tablet, 1 TAB GT Q6HR Y for For Pain, TAB 02/27/17 Polyethylene Glycol 3350* (MIRALAX*) 17 Gm Powd.pack, 17 GM GT DAILY, PACKET 02/27/17 Magnesium Hydroxide* (MILK OF MAGNESIA*) 2,400 Mg/10 Ml Oral.susp, 30 ML GT PRN , ML 02/27/17 Magnesium Oxide (MAGNESIUM OXIDE) 500 Mg Capsule, 400 MG GT DAILY, CAP 02/27/17 Levothyroxine Sodium* (LEVOTHYROXINE SODIUM*) 50 Mcg Tablet, 50 MCG GT DAILY, TAB Take in the morning on an empty stomach, at least 30 minutes before food. 02/27/17 Hydralazine Hcl* (HYDRALAZINE HCL*) 25 Mg Tablet, 25 MG GT EVERY 8 HOURS, TAB 0 Refills 02/27/17 Heparin Sod (Porcine) (HEPARIN SODIUM*) 5 000/1 Ml Vial, 5000 UNITS SUBQ EVERY 12 HOURS, VIAL 02/27/17 Gemfibrozil (GEMFIBROZIL*) 600 Mg Tablet, 600 MG GT BID, TAB 0 Refills 02/27/17 Folic Acid* (FOLIC ACID*) 1 Mg Tablet, 1 MG GT DAILY, TAB 02/27/17 Lorazepam* (ATIVAN*) 1 Mg Tablet, 1 MG GT Q6HR, TAB 02/27/17 Dextran 70/Hypromellose (ARTIFICIAL TEARS) 1 Each Droperette, 1 EACH OP 02/27/17 Med list reviewed/reconciled: Yes Allergies: Coded Allergies: No Known Allergies (Unverified , 02/27/17) Patient History History Provided By: Patient, Medical Record PMH Narrative Past Medical History: HTN, other - Tracheostomy Past Surgical History: none Pertinent Family History: none Social History: Denies: alcohol use, drug use, smoking Reviewed Nursing Documentation: PMH: Agreed, PSxH: Agreed Nursing Documentation-PMH Past Medical History: No History, Except For Hx Hypertension: Yes Review of Systems All Other Systems: limited Physical Exam Vital Signs Date Time Temp Pulse Resp B/P Pulse Ox O2 Delivery O2 Flow Rate FiO2 02/27/17 12:05 54 20 120/80 99 Mechanical Ventilator 02/27/17 12:18 45 02/27/17 20:06 98.0 Sp02 EP Interpretation: reviewed Labs Laboratory Tests Test 02/28/17 03:30 02/28/17 12:32 White Blood Count 9.3 K/UL (4.8-10.8) Red Blood Count 3.80 M/UL (4.70-6.10) L Hemoglobin 12.3 G/DL (14.2-18.0) L Hematocrit 36.7 % (42.0-52.0) L Mean Corpuscular Volume 97 FL (80-99) Mean Corpuscular Hemoglobin 32.4 PG (27.0-31.0) H Mean Corpuscular Hemoglobin Concent 33.5 G/DL (32.0-36.0) Red Cell Distribution Width 13.2 % (11.6-14.8) Platelet Count 219 K/UL (150-450) Mean Platelet Volume 10.4 FL (6.5-10.1) H Neutrophils (%) (Auto) 58.4 % (45.0-75.0) Lymphocytes (%) (Auto) 28.9 % (20.0-45.0) Monocytes (%) (Auto) 9.5 % (1.0-10.0) Eosinophils (%) (Auto) 2.3 % (0.0-3.0) Basophils (%) (Auto) 0.9 % (0.0-2.0) Sodium Level 142 mEQ/L (135-145) Potassium Level 4.1 mEQ/L (3.4-4.9) Chloride Level 103 mEQ/L (98-107) Carbon Dioxide Level 22 mEQ/L (20-30) Anion Gap 17 (5-15) H Blood Urea Nitrogen 17 mg/dL (7-23) Creatinine 0.6 mg/dL (0.7-1.2) L Estimat Glomerular Filtration Rate mL/min (>60) Glucose Level 104 mg/dL (74-106) Calcium Level 9.5 mg/dL (8.6-10.2) Phosphorus Level 2.3 mg/dL (2.5-4.8) L Albumin 3.2 g/dL (3.5-5.2) L Arterial Blood pH 7.510 (7.350-7.450) Arterial Blood Partial Pressure CO2 31.0 mmHg (35.0-45.0) L Arterial Blood Partial Pressure O2 103.8 mmHg (75.0-100.0) H Arterial Blood HCO3 24.7 mmol/L (22.0-26.0) Arterial Blood Oxygen Saturation 98.1 % (92.0-98.0) H Arterial Blood Base Excess 2.5 Albin Test Positive General Appearance: no apparent distress Head: normocephalic EENT: normal ENT inspection Neck: tracheotomy Respiratory: other - mech vent Cardiovascular: normal rate Gastrointestinal: gt - c/d/i Neurologic: alert Skin: normal inspection, normal color, no rash, warm/dry Lymphatic: normal inspection, no adenopathy Current Medications Current Medications Medications (Trade) Dose Ordered Sig/Kevin Route PRN Reason Start Time Stop Time Status Last Admin Dose Admin Acetaminophen (Tylenol) 650 mg Q4H PRN ORAL FEVER 02/27/17 13:45 03/29/17 13:44 Albuterol/ Ipratropium (DuoNeb 0.5-3(2.5)mg/3ml) 3 ml Q4H PRN HHN Shortness of Breath 02/27/17 13:45 03/04/17 13:44 Dextrose STAT PRN IV Hypoglycemia 02/27/17 13:45 03/29/17 13:44 Heparin Sodium (Porcine) (Heparin 5000 units/ml) 5,000 units EVERY 12 HOURS SUBQ 02/27/17 21:00 03/29/17 20:59 02/28/17 08:46 Levothyroxine Sodium (Synthroid) 50 mcg DAILY GT 02/28/17 09:00 03/30/17 08:59 02/28/17 08:45 Lorazepam (Ativan 2mg/ml 1ml) 2 mg Q2H PRN IV For Anxiety 02/27/17 13:45 03/06/17 13:44 Morphine Sulfate (Morphine Sulfate) 4 mg Q4H PRN IVP Severe Pain (Pain Scale 7-10) 02/27/17 13:45 03/06/17 13:44 Ondansetron HCl (Zofran) 4 mg Q6H PRN IVP Nausea & Vomiting 02/27/17 13:45 03/29/17 13:44 Pantoprazole 40 mg 40 mg DAILY IV 02/28/17 09:00 03/30/17 08:59 02/28/17 08:45 Piperacillin Sod/ Tazobactam Sod/ Sodium Chloride (Zosyn/Sodium Chloride) 110 ml @ 27.5 mls/hr Q8HR IVPB 02/27/17 22:00 03/06/17 21:59 02/28/17 14:10 Polyethylene Glycol (Miralax) 17 gm DAILYPRN PRN ORAL Constipation 02/27/17 13:45 03/29/17 13:44 Sodium Chloride (Sodium Chloride 1000ml bag) 1,000 ml @ 100 mls/hr Q10H IV 02/28/17 12:45 03/30/17 12:44 02/28/17 13:04 Vancomycin HCl 1 ea 1 ea DAILY PRN MISC . 02/27/17 20:15 03/29/17 20:14 Vancomycin HCl/ Dextrose (Vancomycin/D5W) 325 ml @ 162.5 mls/ hr Q24H IVPB 02/28/17 18:00 03/05/17 17:59 GI: Plan Problems: (1) Hypoalbuminemia (2) Constipation (3) Acute abdominal pain Plan supportive care GTFs per dietary >> Jevity 1.2 @60ml bowel regime >> colace + miralax monitor H&H, transfuse prn prevacid GT fu labs Discussed with Dr. Jacobs. Thank you for referring this patient, we will follow. REDD JACOBS 03/05/17 0800: History of Present Illness General Reason for Hospitalization: Altered Level of Consciousness Present Illness Home Meds Reported Medications Olanzapine Zydis* (ZYPREXA ZYDIS*) 5 Mg Tab.rapdis, 5 MG GT DAILY, #30 TAB 0 Refills 02/27/17 Amino Acids/Protein Hydrolys (PRO-STAT LIQUID) 30 Ml Liquid.pkt, 30 ML GT TWICE A DAY, ML 02/27/17 Chlorhexidine Gluconate (Peridex) 15 Ml Mouthwash, 15 ML MM Q12HR, ML 02/27/17 Omeprazole (OMEPRAZOLE) 20 Mg Capsule.dr, 20 MG GT DAILY, CAP 02/27/17 Hydrocodone Bit/Acetaminophen 5-325* (NORCO 5-325 TABLET*) 1 Each Tablet, 1 TAB GT Q6HR Y for For Pain, TAB 02/27/17 Polyethylene Glycol 3350* (MIRALAX*) 17 Gm Powd.pack, 17 GM GT DAILY, PACKET 02/27/17 Magnesium Hydroxide* (MILK OF MAGNESIA*) 2,400 Mg/10 Ml Oral.susp, 30 ML GT PRN , ML 02/27/17 Magnesium Oxide (MAGNESIUM OXIDE) 500 Mg Capsule, 400 MG GT DAILY, CAP 02/27/17 Levothyroxine Sodium* (LEVOTHYROXINE SODIUM*) 50 Mcg Tablet, 50 MCG GT DAILY, TAB Take in the morning on an empty stomach, at least 30 minutes before food. 02/27/17 Hydralazine Hcl* (HYDRALAZINE HCL*) 25 Mg Tablet, 25 MG GT EVERY 8 HOURS, TAB 0 Refills 02/27/17 Heparin Sod (Porcine) (HEPARIN SODIUM*) 5 000/1 Ml Vial, 5000 UNITS SUBQ EVERY 12 HOURS, VIAL 02/27/17 Gemfibrozil (GEMFIBROZIL*) 600 Mg Tablet, 600 MG GT BID, TAB 0 Refills 02/27/17 Folic Acid* (FOLIC ACID*) 1 Mg Tablet, 1 MG GT DAILY, TAB 02/27/17 Lorazepam* (ATIVAN*) 1 Mg Tablet, 1 MG GT Q6HR, TAB 02/27/17 Dextran 70/Hypromellose (ARTIFICIAL TEARS) 1 Each Droperette, 1 EACH OP 02/27/17 Allergies: Coded Allergies: No Known Allergies (Unverified , 02/27/17) GI: Plan Plan The patient was seen and examined at bedside and all new and available data was reviewed in the patients chart. I agree with the above findings, impression and plan. (Patient seen earlier today. Signature stamp does not reflect patient encounter time.). -[facility] Farrukh N.PBernadine Feb 28, 2017 14:48 REDD JACOBS Mar 05, 2017 08:00
[2017-02-28 16:00] VITALS: BP 127/61
[2017-02-28] MEDS: Phospha 250 Neutral tab ORAL SCH (18:19)
[2017-02-28] MEDS: Docusate 100mg/10ml Liq NG SCH (18:19)
[2017-02-28] MEDS: Vancomycin 1.5 GM in D5W 325 ML IVPB SCH (18:20)
--- NOTE | 2017-02-28 18:46 | Cardiology Report ---
APPROVED REPORT EKG Measurement Heart [id number] Unusual P axis, possible ectopic atrial bradycardia Left axis deviation Low voltage QRS Cannot rule out Anteroseptal infarct, age undetermined Abnormal ECG
[2017-02-28] MEDS: Miralax 17gm pkt GT SCH (20:41)
--- NOTE | 2017-02-28 22:02 | Progress Note ---
CARDIOLOGY CONSULTATION CONSULTING PHYSICIAN: Vikram Mari M.D. REQUESTING PHYSICIAN: Saul Tang D.O. REASON FOR CONSULTATION: Bradycardia. HISTORY OF PRESENT ILLNESS: This is an 89-year-old male with tracheostomy who is intermittently ventilator dependent. He was brought to the emergency room from his half-way facility because of bradycardia and abdominal pain. He was seen in the emergency room yesterday and had heart rates in the high 40s. He was hemodynamically stable. He was also noticed to have signs of an acute infection and started on antibiotic. I have been asked to assist with further cardiovascular care. In April of 2016, the patient was hospitalized at [facility] in [place] where he also presented with sepsis and notably had bradyarrhythmias. At that time, his bradycardia was severe enough to require a temporary pacemaker wire insertion. He was paced for several days and then stabilized with the heart rates remaining in the stable range thereafter and the wire removed. He has not had any signs of symptomatic bradycardia since. The patient's grandson is at bedside and is unaware of any history of loss of consciousness. The patient, however, is mostly bedbound and sometimes to cardiac chair. PAST MEDICAL HISTORY: Tracheostomy; respiratory failure; hypertension; hypothyroidism, on replacement therapy; hyperlipidemia; schizoaffective disorder; and dementia with agitation. ALLERGIES: None known. MEDICATIONS PRIOR TO ADMISSION: Reviewed and reconciled. REVIEW OF SYSTEMS: Not obtainable from the patient. Pertinent data is obtained with review of prior records from outside hospital and current half-way facility chart. PHYSICAL EXAMINATION: GENERAL: Awake, alert, on ventilator support via tracheostomy, no acute distress. VITAL SIGNS: Blood pressure 127/61, pulse 52, respiratory rate 18, and afebrile. HEENT: Thin trach secretions. LUNGS: Bilateral breath sounds with few rales at the left base. CARDIOVASCULAR: Regular rhythm. Slow rate. Normal S1 and S2. No murmur. ABDOMEN: Soft. EXTREMITIES: Without edema. LABORATORY AND DIAGNOSTIC DATA: White count 9.3, hemoglobin 12.3. ABG, 7.51/31/103. Urinalysis, 5 to 10 white cells. CAT scan of the abdomen reveals a dense infiltrate at the left with no acute abdominal pathology. IMPRESSIONS: 1. Sinus node disease with bradyarrhythmias, presently hemodynamically stable and asymptomatic. 2. Bedbound state. 3. Chronic respiratory failure with tracheostomy, presently on ventilator support. 4. Healthcare-acquired pneumonia. 5. Urinary tract infection. 6. Acute respiratory alkalosis. 7. Hypophosphatemia. 8. Mild protein-calorie malnutrition. 9. Hypothyroidism, on replacement therapy. PLAN: 1. Ventilator support. 2. Antimicrobials. 3. Respiratory hygiene. 4. Medication regimen reviewed. No agents that can aggravate bradyarrhythmias are on board. 5. Replace phosphorus. 6. Check thyroid panel. 7. Broad-spectrum antibiotics. 8. Cardiac monitoring. 9. Discussed with family member at bedside. 10. No current indication for emergent temporary pacemaker. Vikram Mari M.D. DR: ZULAY JOB#: [id number] CC:
[2017-02-28] MEDS ORDERED: Vancomycin 1 GM in D5W 275 ML IV SCH (23:00)
[2017-03-01 00:47] VITALS: BP 101/56
[2017-03-01 04:00] VITALS: BP 110/62
[2017-03-01 04:51] LABS: BASOPHILS % (AUTO) 0.9 % (0.0-2.0); LYMPHOCYTES % (AUTO) 20.5 % (20.0-45.0); MEAN CORPUSCULAR HEMOGLOBIN 31.8 PG (27.0-31.0); MEAN CORPUSCULAR HGB CONC 32.7 G/DL (32.0-36.0); MEAN CORPUSCULAR VOLUME 97 FL (80-99); MEAN PLATELET VOLUME 10.5 FL (6.5-10.1); MONOCYTES % (AUTO) 8.3 % (1.0-10.0); NEUTROPHILS % (AUTO) 68.4 % (45.0-75.0); PLATELET COUNT 196 K/UL (150-450); RED BLOOD COUNT 3.94 M/UL (4.70-6.10); RED CELL DISTRIBUTION WIDTH 13.4 % (11.6-14.8)
[2017-03-01 05:23] LABS: ALANINE AMINOTRANSFERASE 16 U/L (3-41); ALBUMIN/GLOBULIN RATIO 1.2 (1.0-2.7); ANION GAP 13 (5-15); ASPARTATE AMINO TRANSFERASE 24 U/L (5-40); CALCIUM 9.2 mg/dL (8.6-10.2); CARBON DIOXIDE 24 mEQ/L (20-30); CHLORIDE 107 mEQ/L (98-107); CREATININE 0.9 mg/dL (0.7-1.2); HEMOLYSIS 9; POTASSIUM 3.9 mEQ/L (3.4-4.9); SODIUM 144 mEQ/L (135-145); TOTAL PROTEIN 6.3 g/dL (6.6-8.7)
[2017-03-01 05:32] LABS: TROPONIN I < 0.30 ng/mL (<=0.30)
[2017-03-01] MEDS: Piperacillin/Tazobactam 3.375 GM in NS 110 ML IVPB SCH ×3 (05:42→21:04)
[2017-03-01 08:00] VITALS: BP 114/55
--- NOTE | 2017-03-01 08:55 | General Progress Note ---
Assessment/Plan Problem List: (1) Chronic respiratory failure ICD Codes: J96.10 - Chronic respiratory failure, unspecified whether with hypoxia or hypercapnia SNOMED: 35548392 (2) Aspiration pneumonia ICD Codes: J69.0 - Pneumonitis due to inhalation of food and vomit SNOMED: 187496013 (3) Sepsis ICD Codes: A41.9 - Sepsis, unspecified organism SNOMED: 28294788 (4) Acute and chronic respiratory failure ICD Codes: J96.20 - Acute and chronic respiratory failure, unspecified whether with hypoxia or hypercapnia SNOMED: 11675800, 67261229 (5) Bradycardia ICD Codes: R00.1 - Bradycardia, unspecified SNOMED: 05227485 (6) Acute abdominal pain ICD Codes: R10.9 - Unspecified abdominal pain SNOMED: 722517520 Status: stable, progressing, tolerating diet Assessment/Plan vent abx gi eval ot pt diet cbc bmp am dia la eval Subjective Allergies: Coded Allergies: No Known Allergies (Unverified , 02/27/17) All Systems: reviewed and negative except above Subjective trach vent altered Objective Last 24 Hour Vital Signs Date Time Temp Pulse Resp B/P Pulse Ox O2 Delivery O2 Flow Rate FiO2 03/01/17 06:42 52 18 35 03/01/17 05:39 49 17 35 03/01/17 04:00 45 03/01/17 04:00 99.2 71 17 110/62 98 Mechanical Ventilator 35 03/01/17 04:00 46 03/01/17 03:16 52 16 35 03/01/17 01:10 52 17 35 03/01/17 00:47 99.4 53 16 101/56 95 Mechanical Ventilator 35 03/01/17 00:00 57 03/01/17 00:00 45 02/28/17 23:27 48 18 35 02/28/17 20:48 57 18 35 02/28/17 20:16 61 16 35 02/28/17 20:00 61 02/28/17 20:00 45 02/28/17 17:05 65 22 35 02/28/17 16:00 98.4 58 16 127/61 97 Mechanical Ventilator 35 02/28/17 16:00 58 02/28/17 16:00 45 02/28/17 14:37 52 16 35 02/28/17 12:36 54 18 35 02/28/17 12:00 98.2 52 17 109/60 98 Mechanical Ventilator 35 02/28/17 12:00 45 02/28/17 12:00 55 02/28/17 11:14 50 16 35 Intake and Output 02/28/17 03/01/17 19:00 07:00 Intake Total 1160.0 ml 1683.0 ml Output Total 600 ml 500 ml Balance 560.0 ml 1183.0 ml Free Water 100 ml IV Total 620.0 ml 1503.0 ml Tube Feeding 360 ml 120 ml Other 80 ml 60 ml Output Urine Total 600 ml 500 ml Laboratory Tests 02/28/17 12:32: Arterial Blood pH 7.510H, Arterial Blood Partial Pressure CO2 31.0L, Arterial Blood Partial Pressure O2 103.8H, Arterial Blood HCO3 24.7, Arterial Blood Oxygen Saturation 98.1H, Arterial Blood Base Excess 2.5, Albin Test Positive 03/01/17 03:40: White Blood Count 10.0, Red Blood Count 3.94L, Hemoglobin 12.5L, Hematocrit 38.3L, Mean Corpuscular Volume 97, Mean Corpuscular Hemoglobin 31.8H, Mean Corpuscular Hemoglobin Concent 32.7, Red Cell Distribution Width 13.4, Platelet Count 196, Mean Platelet Volume 10.5H, Neutrophils (%) (Auto) 68.4, Lymphocytes (%) (Auto) 20.5, Monocytes (%) (Auto) 8.3, Eosinophils (%) (Auto) 2.0, Basophils (%) (Auto) 0.9, Sodium Level 144, Potassium Level 3.9, Chloride Level 107, Carbon Dioxide Level 24, Anion Gap 13, Blood Urea Nitrogen 16, Creatinine 0.9, Estimat Glomerular Filtration Rate , Glucose Level 110H, Calcium Level 9.2 , Total Bilirubin 0.5, Aspartate Amino Transf (AST/SGOT) 24, Alanine Aminotransferase (ALT/SGPT) 16, Alkaline Phosphatase 91, Troponin I < 0.30, Pro- B-Type Natriuretic Peptide 463H, Total Protein 6.3L, Albumin 3.5, Globulin 2.8, Albumin/Globulin Ratio 1.2, Thyroid Stimulating Hormone (TSH) 2.360 Height (Feet): 5 Height (Inches): 4.00 Weight (Pounds): 180 General Appearance: lethargic EENT: normal ENT inspection Neck: normal alignment Cardiovascular: normal peripheral pulses, normal rate, regular rhythm Respiratory/Chest: chest wall non-tender, lungs clear, normal breath sounds Abdomen: normal bowel sounds, non tender, soft Extremities: normal inspection Edema: no edema noted Arm (L), no edema noted Arm (R), no edema noted Leg (L), no edema noted Leg (R), no edema noted Pedal (L), no edema noted Pedal (R), no edema noted Generalized Neurologic: motor weakness Skin: normal pigmentation, warm/dry KOBE HERNANDEZ Mar 01, 2017 08:55
[2017-03-01] MEDS: Docusate 100mg/10ml Liq NG SCH ×3 (09:40→17:41)
[2017-03-01] MEDS: Heparin 5000 units/ml inj SUBQ SCH ×2 (09:41→21:07)
[2017-03-01] MEDS: Phospha 250 Neutral tab ORAL SCH ×2 (09:41→14:00)
[2017-03-01 12:00] VITALS: BP 127/73
--- NOTE | 2017-03-01 13:09 | Pulmonology Progress Note ---
Assessment/Plan Assessment/Plan ASSESSMENT sepsis aspiration PNA UTI acute on chronic respiratory failure Sinus node disease with bradyarrhythmias ( hemodynamically stable) VDRF.trach acute abdominal pain cardiomyopathy dysphagia, G tube PLAN OF CARE ADDIE status abx, ID follows urine cx + GNB. sputum cx not sent Vent/trach care pulmonary toilet ABG stable on current settings, keep as os and titrate as needed fup with CXR on Friday CT C/A/P Dense left lower lobe pulmonary parenchymal consolidation, likely pneumonia. No definite acute enteric abnormality Possible mild constipation Gastrostomy in good position Borderline splenomegaly Prostatomegaly Cholelithiasis get abdominal US due to findings of cholelithiasis, but LFT/bili WNL strict aspiration precautions, GT feeding, monitor tolerance ECG with profound bradycardia ?sick sinus syndrome cardio eval appreciated per cardio hemodynamically stable and asymptomatic no medications that can aggravate bradyarrhythmias no current indication for emergent temporary pacemaker. ECHO with EF 40-45% will need medical management for systolic heart failure - per cardio discretion DVT GI prophylaxis pain management bowel regimen case discussed and evaluated by supervising physician Subjective Allergies: Coded Allergies: No Known Allergies (Unverified , 02/27/17) Subjective afebrile, no leukocytosis remain in sinus federico [address] seen and evaluated by cardio Objective Last 24 Hour Vital Signs Date Time Temp Pulse Resp B/P Pulse Ox O2 Delivery O2 Flow Rate FiO2 03/01/17 12:00 97.7 52 16 127/73 98 Mechanical Ventilator 35 03/01/17 12:00 45 03/01/17 12:00 45 03/01/17 10:55 49 16 35 03/01/17 08:30 49 16 35 03/01/17 08:13 48 03/01/17 08:00 98.2 54 20 114/55 97 Mechanical Ventilator 35 03/01/17 08:00 45 03/01/17 06:42 52 18 35 03/01/17 05:39 49 17 35 03/01/17 04:00 45 03/01/17 04:00 99.2 71 17 110/62 98 Mechanical Ventilator 35 03/01/17 04:00 46 03/01/17 03:16 52 16 35 03/01/17 01:10 52 17 35 03/01/17 00:47 99.4 53 16 101/56 95 Mechanical Ventilator 35 03/01/17 00:00 57 03/01/17 00:00 45 02/28/17 23:27 48 18 35 02/28/17 20:48 57 18 35 02/28/17 20:16 61 16 35 02/28/17 20:00 61 02/28/17 20:00 45 02/28/17 17:05 65 22 35 02/28/17 16:00 98.4 58 16 127/61 97 Mechanical Ventilator 35 02/28/17 16:00 58 02/28/17 16:00 45 02/28/17 14:37 52 16 35 Intake and Output 02/28/17 03/01/17 19:00 07:00 Intake Total 1160.0 ml 1683.0 ml Output Total 600 ml 500 ml Balance 560.0 ml 1183.0 ml Free Water 100 ml IV Total 620.0 ml 1503.0 ml Tube Feeding 360 ml 120 ml Other 80 ml 60 ml Output Urine Total 600 ml 500 ml Objective General Appearance: other - bedridden elderly vent dependent male Vent AC 600- 35-16 HEENT: normocephalic, atraumatic, status post trach - Shiley#6, secretions scant, clear, thick Respiratory/Chest: no respiratory distress, few scattered rhonchi Cardiovascular: regular rhythm, bradycardia Abdomen: normal bowel sounds, soft, non tender, G tube Extremities: no edema Neurologic/Psychiatric: abnormal gait - bedridden, alert, awake, poorly but responsive Musculoskeletal: atrophy - BLE Microbiology Date/Time Source Procedure Growth Status 02/27/17 13:05 Blood Blood Culture - Preliminary NO GROWTH AFTER 24 HOURS Resulted 02/27/17 13:00 Blood Blood Culture - Preliminary NO GROWTH AFTER 24 HOURS Resulted 02/27/17 12:25 Nasal Nares MRSA Culture - Final NO METHICILLIN RESISTANT STAPH AUREUS... Complete 02/27/17 13:23 Urine,Clean Catch Urine Culture - Preliminary Gram Negative Rafat Resulted 02/27/17 12:25 Rectum VRE Culture - Final Enterococcus Faecalis - Vre Complete Laboratory Tests 03/01/17 03:40: White Blood Count 10.0, Red Blood Count 3.94L, Hemoglobin 12.5L, Hematocrit 38.3L, Mean Corpuscular Volume 97, Mean Corpuscular Hemoglobin 31.8H, Mean Corpuscular Hemoglobin Concent 32.7, Red Cell Distribution Width 13.4, Platelet Count 196, Mean Platelet Volume 10.5H, Neutrophils (%) (Auto) 68.4, Lymphocytes (%) (Auto) 20.5, Monocytes (%) (Auto) 8.3, Eosinophils (%) (Auto) 2.0, Basophils (%) (Auto) 0.9, Sodium Level 144, Potassium Level 3.9, Chloride Level 107, Carbon Dioxide Level 24, Anion Gap 13, Blood Urea Nitrogen 16, Creatinine 0.9, Estimat Glomerular Filtration Rate , Glucose Level 110H, Calcium Level 9.2 , Total Bilirubin 0.5, Aspartate Amino Transf (AST/SGOT) 24, Alanine Aminotransferase (ALT/SGPT) 16, Alkaline Phosphatase 91, Troponin I < 0.30, Pro- B-Type Natriuretic Peptide 463H, Total Protein 6.3L, Albumin 3.5, Globulin 2.8, Albumin/Globulin Ratio 1.2, Thyroid Stimulating Hormone (TSH) 2.360 Current Medications Medications (Trade) Dose Ordered Sig/Kevin Route PRN Reason Start Time Stop Time Status Last Admin Dose Admin Acetaminophen (Tylenol) 650 mg Q4H PRN ORAL FEVER 02/27/17 13:45 03/29/17 13:44 Albuterol/ Ipratropium (DuoNeb 0.5-3(2.5)mg/3ml) 3 ml Q4H PRN HHN Shortness of Breath 02/27/17 13:45 03/04/17 13:44 Dextrose STAT PRN IV Hypoglycemia 02/27/17 13:45 03/29/17 13:44 Docusate Sodium (Colace) 100 mg THREE TIMES A DAY NG 02/28/17 18:00 03/30/17 17:59 03/01/17 09:40 Heparin Sodium (Porcine) (Heparin 5000 units/ml) 5,000 units EVERY 12 HOURS SUBQ 02/27/17 21:00 03/29/17 20:59 03/01/17 09:41 Lansoprazole (Prevacid) 30 mg DAILY GT 03/01/17 09:00 03/31/17 08:59 03/01/17 09:41 Levothyroxine Sodium (Synthroid) 50 mcg DAILY GT 02/28/17 09:00 03/30/17 08:59 03/01/17 09:40 Lorazepam (Ativan 2mg/ml 1ml) 2 mg Q2H PRN IV For Anxiety 02/27/17 13:45 03/06/17 13:44 Morphine Sulfate (Morphine Sulfate) 4 mg Q4H PRN IVP Severe Pain (Pain Scale 7-10) 02/27/17 13:45 03/06/17 13:44 Ondansetron HCl (Zofran) 4 mg Q6H PRN IVP Nausea & Vomiting 02/27/17 13:45 03/29/17 13:44 Phosphorus (Phospha 250 Neutral) 250 mg THREE TIMES A DAY ORAL 02/28/17 18:00 03/03/17 12:00 03/01/17 09:41 Piperacillin Sod/ Tazobactam Sod 3.375 gm/Sodium Chloride 110 ml @ 27.5 mls/hr Q8HR IVPB 02/27/17 22:00 03/06/17 21:59 03/01/17 05:42 Polyethylene Glycol (Miralax) 17 gm BEDTIME GT 02/28/17 21:00 03/30/17 20:59 02/28/17 20:41 Polyethylene Glycol (Miralax) 17 gm DAILYPRN PRN ORAL Constipation 02/27/17 13:45 03/29/17 13:44 Sodium Chloride (Sodium Chloride 1000ml bag) 1,000 ml @ 100 mls/hr Q10H IV 02/28/17 12:45 03/30/17 12:44 03/01/17 09:00 Vancomycin HCl 1 ea 1 ea DAILY PRN MISC . 02/27/17 20:15 03/29/17 20:14 Vancomycin HCl/ Dextrose (Vancomycin/D5W) 325 ml @ 162.5 mls/ hr Q24H IVPB 02/28/17 18:00 03/05/17 17:59 02/28/17 18:20 Nayely Davidson NP (Vanchtein) Mar 01, 2017 13:09
--- NOTE | 2017-03-01 14:17 | Infectious Diseases Prog Note ---
Assessment/Plan Problems: (1) Sepsis Assessment & Plan: due to pneumonia and UTI, on vancomycin and zosyn , await blood and sputum culture (2) Aspiration pneumonia Assessment & Plan: await sputum culture, continue zosyn and vancomycin , monitor CXR (3) Acute and chronic respiratory failure Assessment & Plan: due to the above, intubated on mechanical ventilation , monitor ABG, and CXR (4) Chronic respiratory failure Assessment & Plan: S/P Trach, continue trach care , titrate O2 as needed (5) Acute abdominal pain Assessment & Plan: CT abdomen didn't show any abdominal pathology , further management as per primary team (6) UTI (urinary tract infection) Assessment & Plan: with gram negative rods, already on zosyn . Subjective ROS Limited/Unobtainable: Yes Allergies: Coded Allergies: No Known Allergies (Unverified , 02/27/17) Subjective he was more awake and alert, communicating by nodding his head, his grand son is at the bedside, afebrile. not on pressors. not federico Objective Vital Signs Last 24 Hour Vital Signs Date Time Temp Pulse Resp B/P Pulse Ox O2 Delivery O2 Flow Rate FiO2 03/01/17 12:57 51 18 35 03/01/17 12:00 97.7 52 16 127/73 98 Mechanical Ventilator 35 03/01/17 12:00 45 03/01/17 12:00 45 03/01/17 10:55 49 16 35 03/01/17 08:30 49 16 35 03/01/17 08:13 48 03/01/17 08:00 98.2 54 20 114/55 97 Mechanical Ventilator 35 03/01/17 08:00 45 03/01/17 06:42 52 18 35 03/01/17 05:39 49 17 35 03/01/17 04:00 45 03/01/17 04:00 99.2 71 17 110/62 98 Mechanical Ventilator 35 03/01/17 04:00 46 03/01/17 03:16 52 16 35 03/01/17 01:10 52 17 35 03/01/17 00:47 99.4 53 16 101/56 95 Mechanical Ventilator 35 03/01/17 00:00 57 03/01/17 00:00 45 02/28/17 23:27 48 18 35 02/28/17 20:48 57 18 35 02/28/17 20:16 61 16 35 02/28/17 20:00 61 02/28/17 20:00 45 02/28/17 17:05 65 22 35 02/28/17 16:00 98.4 58 16 127/61 97 Mechanical Ventilator 35 02/28/17 16:00 58 02/28/17 16:00 45 02/28/17 14:37 52 16 35 Height (Feet): 5 Height (Inches): 4.00 Weight (Pounds): 180 General Appearance: WD/WN, no acute distress HEENT: normocephalic, atraumatic, anicteric, mucous membranes moist, status post trach Respiratory/Chest: chest wall non-tender, lungs clear, normal breath sounds, no respiratory distress, no accessory muscle use Cardiovascular: normal peripheral pulses, normal rate, regular rhythm, no gallop/murmur, no JVD Abdomen: normal bowel sounds, soft, non tender, no organomegaly, non distended , no mass, no scars Extremities: no cyanosis, no clubbing Skin: no rash, no lesions, no ulcers Lymphatic: no neck adenopathy, no groin adenopathy Microbiology Date/Time Source Procedure Growth Status 02/27/17 13:05 Blood Blood Culture - Preliminary NO GROWTH AFTER 24 HOURS Resulted 02/27/17 13:00 Blood Blood Culture - Preliminary NO GROWTH AFTER 24 HOURS Resulted 02/27/17 12:25 Nasal Nares MRSA Culture - Final NO METHICILLIN RESISTANT STAPH AUREUS... Complete 02/27/17 13:23 Urine,Clean Catch Urine Culture - Preliminary Gram Negative Rafat Resulted 02/27/17 12:25 Rectum VRE Culture - Final Enterococcus Faecalis - Vre Complete Laboratory Tests Test 03/01/17 03:40 White Blood Count 10.0 K/UL (4.8-10.8) Red Blood Count 3.94 M/UL (4.70-6.10) L Hemoglobin 12.5 G/DL (14.2-18.0) L Hematocrit 38.3 % (42.0-52.0) L Mean Corpuscular Volume 97 FL (80-99) Mean Corpuscular Hemoglobin 31.8 PG (27.0-31.0) H Mean Corpuscular Hemoglobin Concent 32.7 G/DL (32.0-36.0) Red Cell Distribution Width 13.4 % (11.6-14.8) Platelet Count 196 K/UL (150-450) Mean Platelet Volume 10.5 FL (6.5-10.1) H Neutrophils (%) (Auto) 68.4 % (45.0-75.0) Lymphocytes (%) (Auto) 20.5 % (20.0-45.0) Monocytes (%) (Auto) 8.3 % (1.0-10.0) Eosinophils (%) (Auto) 2.0 % (0.0-3.0) Basophils (%) (Auto) 0.9 % (0.0-2.0) Sodium Level 144 mEQ/L (135-145) Potassium Level 3.9 mEQ/L (3.4-4.9) Chloride Level 107 mEQ/L (98-107) Carbon Dioxide Level 24 mEQ/L (20-30) Anion Gap 13 (5-15) Blood Urea Nitrogen 16 mg/dL (7-23) Creatinine 0.9 mg/dL (0.7-1.2) Estimat Glomerular Filtration Rate mL/min (>60) Glucose Level 110 mg/dL (74-106) H Calcium Level 9.2 mg/dL (8.6-10.2) Total Bilirubin 0.5 mg/dL (0.0-1.2) Aspartate Amino Transf (AST/SGOT) 24 U/L (5-40) Alanine Aminotransferase (ALT/SGPT) 16 U/L (3-41) Alkaline Phosphatase 91 U/L (40-129) Troponin I < 0.30 ng/mL (<=0.30) Pro-B-Type Natriuretic Peptide 463 pg/mL (0-450) H Total Protein 6.3 g/dL (6.6-8.7) L Albumin 3.5 g/dL (3.5-5.2) Globulin 2.8 g/dL Albumin/Globulin Ratio 1.2 (1.0-2.7) Thyroid Stimulating Hormone (TSH) 2.360 uIU/mL (0.300-4.500) Current Medications Medications (Trade) Dose Ordered Sig/Kevin Route PRN Reason Start Time Stop Time Status Last Admin Dose Admin Acetaminophen (Tylenol) 650 mg Q4H PRN ORAL FEVER 02/27/17 13:45 03/29/17 13:44 Albuterol/ Ipratropium (DuoNeb 0.5-3(2.5)mg/3ml) 3 ml Q4H PRN HHN Shortness of Breath 02/27/17 13:45 03/04/17 13:44 Dextrose STAT PRN IV Hypoglycemia 02/27/17 13:45 03/29/17 13:44 Docusate Sodium (Colace) 100 mg THREE TIMES A DAY NG 02/28/17 18:00 03/30/17 17:59 03/01/17 14:00 Heparin Sodium (Porcine) (Heparin 5000 units/ml) 5,000 units EVERY 12 HOURS SUBQ 02/27/17 21:00 03/29/17 20:59 03/01/17 09:41 Lansoprazole (Prevacid) 30 mg DAILY GT 03/01/17 09:00 03/31/17 08:59 03/01/17 09:41 Levothyroxine Sodium (Synthroid) 50 mcg DAILY GT 02/28/17 09:00 03/30/17 08:59 03/01/17 09:40 Lorazepam (Ativan 2mg/ml 1ml) 2 mg Q2H PRN IV For Anxiety 02/27/17 13:45 03/06/17 13:44 03/01/17 13:49 Morphine Sulfate (Morphine Sulfate) 4 mg Q4H PRN IVP Severe Pain (Pain Scale 7-10) 02/27/17 13:45 03/06/17 13:44 Ondansetron HCl (Zofran) 4 mg Q6H PRN IVP Nausea & Vomiting 02/27/17 13:45 03/29/17 13:44 Phosphorus (Phospha 250 Neutral) 250 mg THREE TIMES A DAY ORAL 02/28/17 18:00 03/03/17 12:00 03/01/17 14:00 Piperacillin Sod/ Tazobactam Sod 3.375 gm/Sodium Chloride 110 ml @ 27.5 mls/hr Q8HR IVPB 02/27/17 22:00 03/06/17 21:59 03/01/17 14:00 Polyethylene Glycol (Miralax) 17 gm BEDTIME GT 02/28/17 21:00 03/30/17 20:59 02/28/17 20:41 Polyethylene Glycol (Miralax) 17 gm DAILYPRN PRN ORAL Constipation 02/27/17 13:45 03/29/17 13:44 Sodium Chloride (Sodium Chloride 1000ml bag) 1,000 ml @ 100 mls/hr Q10H IV 02/28/17 12:45 03/30/17 12:44 03/01/17 09:00 Vancomycin HCl 1 ea 1 ea DAILY PRN MISC . 02/27/17 20:15 03/29/17 20:14 Vancomycin HCl/ Dextrose (Vancomycin/D5W) 325 ml @ 162.5 mls/ hr Q24H IVPB 02/28/17 18:00 03/05/17 17:59 02/28/17 18:20 Papito Don M.D. Mar 01, 2017 14:17
[2017-03-01] MEDS ORDERED: Miralax 17gm pkt GT PRN (14:44)
[2017-03-01 16:00] VITALS: BP 123/69
[2017-03-01] MEDS: Phospha 250 Neutral tab GT SCH (17:41)
[2017-03-01] MEDS: Vancomycin 1.5 GM in D5W 325 ML IVPB SCH (17:41)
[2017-03-01 20:00] VITALS: BP 115/46
[2017-03-01] MEDS: Miralax 17gm pkt GT SCH (21:04)
--- NOTE | 2017-03-01 22:46 | Progress Note ---
DATE: 03/01/2017 CARDIOLOGY PROGRESS NOTE: SUBJECTIVE: The patient remains on ventilator support via trach. Monitored rhythm sinus bradycardia with frequent atrial and ventricular ectopics. Heart rates have improved, ranging now at high 40s to 60s with 50s predominantly. No pauses noted. No hypotensive episodes. As stated yesterday, April 2016 hospitalization at [facility], had a similar presentation. Pacing was initiated and subsequently discontinued. The patient was felt not to require permanent pacemaker at that time. OBJECTIVE: VITAL SIGNS: Blood pressure is 123/69, pulse 60, respiratory rate 20, and afebrile. CHEST: Bilateral breath sounds. NECK: Thin trach secretions. HEART: Regular rhythm. Slow rate. Normal S1 and S2. ABDOMEN: Soft. EXTREMITIES: No edema. DIAGNOSTIC AND LABORATORY DATA: Echocardiogram revealed ejection fraction in the range of 40% with mild aortic insufficiency. White count is 10 and hemoglobin 12.5. Troponin is negative. Pro-natriuretic peptide is 463. BUN is 16, creatinine 0.9, and potassium 3.9. TSH is 2.36. IMPRESSION: 1. Sinus node disease. 2. Conduction system disease. 3. Ischemic and hypertensive cardiomyopathy. 4. Chronic systolic and diastolic congestive heart failure. 5. Hypophosphatemia with replacement ongoing. 6. Ventilator-dependent respiratory failure. PLAN: Continue cardiac monitoring. Continue ventilator support and phosphate replacement. Taper off IV fluids. We will advance thyroid supplementation slightly. Antibiotics per Infectious Disease life consultant. Vikram Mari M.D. DR: Cadence JOB#: [id number] CC:
[2017-03-02] VITALS: BP 110/44
[2017-03-02 04:00] VITALS: BP 112/44
[2017-03-02] MEDS: Piperacillin/Tazobactam 3.375 GM in NS 110 ML IVPB SCH (05:30)
[2017-03-02 08:14] VITALS: BP 148/64
[2017-03-02 09:00] LABS: BASOPHILS % (AUTO) 1.2 % (0.0-2.0); EOSINOPHILS % (AUTO) 2.3 % (0.0-3.0); MEAN CORPUSCULAR HEMOGLOBIN 32.2 PG (27.0-31.0); MEAN CORPUSCULAR HGB CONC 32.9 G/DL (32.0-36.0); MEAN CORPUSCULAR VOLUME 98 FL (80-99); MEAN PLATELET VOLUME 9.6 FL (6.5-10.1); MONOCYTES % (AUTO) 8.4 % (1.0-10.0); NEUTROPHILS % (AUTO) 70.2 % (45.0-75.0); PLATELET COUNT 153 K/UL (150-450); RED BLOOD COUNT 3.97 M/UL (4.70-6.10); RED CELL DISTRIBUTION WIDTH 13.1 % (11.6-14.8); WHITE BLOOD COUNT 10.1 K/UL (4.8-10.8)
[2017-03-02] MEDS: Docusate 100mg/10ml Liq NG SCH ×3 (09:03→18:00)
[2017-03-02] MEDS: Phospha 250 Neutral tab GT SCH ×3 (09:03→18:00)
[2017-03-02] MEDS: Heparin 5000 units/ml inj SUBQ SCH ×2 (09:05→20:32)
[2017-03-02 09:14] LABS: ANION GAP 18 (5-15); CALCIUM 8.8 mg/dL (8.6-10.2); CARBON DIOXIDE 21 mEQ/L (20-30); CHLORIDE 99 mEQ/L (98-107); CREATININE 0.7 mg/dL (0.7-1.2); HEMOLYSIS 124; SODIUM 138 mEQ/L (135-145)
[2017-03-02 09:18] LABS: POTASSIUM 4.4 mEQ/L (3.4-4.9)
--- NOTE | 2017-03-02 09:56 | General Progress Note ---
Assessment/Plan Problem List: (1) Chronic respiratory failure ICD Codes: J96.10 - Chronic respiratory failure, unspecified whether with hypoxia or hypercapnia SNOMED: 59163307 (2) Aspiration pneumonia ICD Codes: J69.0 - Pneumonitis due to inhalation of food and vomit SNOMED: 726628246 (3) Sepsis ICD Codes: A41.9 - Sepsis, unspecified organism SNOMED: 37159671 (4) Acute and chronic respiratory failure ICD Codes: J96.20 - Acute and chronic respiratory failure, unspecified whether with hypoxia or hypercapnia SNOMED: 80284254, 85044800 (5) Bradycardia ICD Codes: R00.1 - Bradycardia, unspecified SNOMED: 05234638 (6) Acute abdominal pain ICD Codes: R10.9 - Unspecified abdominal pain SNOMED: 439464898 Status: stable, progressing, tolerating diet Assessment/Plan vent abx gi eval ot pt diet cbc bmp am dia la eval vs dc plan Subjective Allergies: Coded Allergies: No Known Allergies (Unverified , 02/27/17) All Systems: reviewed and negative except above Subjective trach vent altered Objective Last 24 Hour Vital Signs Date Time Temp Pulse Resp B/P Pulse Ox O2 Delivery O2 Flow Rate FiO2 03/02/17 08:14 98.4 50 20 148/64 100 Mechanical Ventilator 03/02/17 08:00 47 03/02/17 07:17 46 16 35 03/02/17 04:42 52 16 35 03/02/17 04:00 98.0 49 17 112/44 100 Mechanical Ventilator 35 03/02/17 04:00 45 03/02/17 03:47 41 03/02/17 02:55 99.0 03/02/17 02:38 60 20 35 03/02/17 00:40 52 16 35 03/02/17 00:23 52 03/02/17 00:00 45 03/02/17 00:00 99.4 49 18 110/44 100 Mechanical Ventilator 35 03/01/17 22:58 50 16 35 03/01/17 21:25 52 16 35 03/01/17 20:00 45 03/01/17 20:00 75 03/01/17 20:00 99.0 47 17 115/46 100 Mechanical Ventilator 35 03/01/17 19:16 46 03/01/17 18:46 50 19 35 03/01/17 16:30 51 18 35 03/01/17 16:00 98.2 60 21 123/69 99 Mechanical Ventilator 35 03/01/17 16:00 45 03/01/17 16:00 75 03/01/17 14:41 48 16 35 03/01/17 12:57 51 18 35 03/01/17 12:00 97.7 52 16 127/73 98 Mechanical Ventilator 35 03/01/17 12:00 45 03/01/17 12:00 45 03/01/17 10:55 49 16 35 Intake and Output 03/01/17 03/02/17 19:00 07:00 Intake Total 1650.0 ml 1318.5 ml Output Total 1200 ml 700 ml Balance 450.0 ml 618.5 ml Free Water 100 ml 100 ml IV Total 1190.0 ml 828.5 ml Tube Feeding 300 ml 270 ml Other 60 ml 120 ml Output Urine Total 1200 ml 700 ml Laboratory Tests 03/02/17 08:45: White Blood Count 10.1, Red Blood Count 3.97L, Hemoglobin 12.8L, Hematocrit 38.9L, Mean Corpuscular Volume 98, Mean Corpuscular Hemoglobin 32.2H, Mean Corpuscular Hemoglobin Concent 32.9, Red Cell Distribution Width 13.1, Platelet Count 153, Mean Platelet Volume 9.6, Neutrophils (%) (Auto) 70.2, Lymphocytes (% ) (Auto) 18.0L, Monocytes (%) (Auto) 8.4, Eosinophils (%) (Auto) 2.3, Basophils (%) (Auto) 1.2, Sodium Level 138, Potassium Level 4.4, Chloride Level 99, Carbon Dioxide Level 21, Anion Gap 18H, Blood Urea Nitrogen 11, Creatinine 0.7, Estimat Glomerular Filtration Rate , Glucose Level 140H, Calcium Level 8.8 Height (Feet): 5 Height (Inches): 4.00 Weight (Pounds): 180 Neck: normal alignment Cardiovascular: normal peripheral pulses, normal rate, regular rhythm Respiratory/Chest: chest wall non-tender, lungs clear Abdomen: normal bowel sounds, non tender, soft Edema: no edema noted Arm (L), no edema noted Arm (R), no edema noted Leg (L), no edema noted Leg (R), no edema noted Pedal (L), no edema noted Pedal (R), no edema noted Generalized Skin: normal pigmentation, warm/dry KOBE HERNANDEZ Mar 02, 2017 09:56
--- NOTE | 2017-03-02 10:37 | Pulmonology Progress Note ---
Assessment/Plan Assessment/Plan ASSESSMENT sepsis aspiration PNA UTI acute on chronic respiratory failure Sinus node disease with bradyarrhythmias ( hemodynamically stable) VDRF.trach acute abdominal pain cardiomyopathy dysphagia, G tube PLAN OF CARE ADDIE status abx, ID follows urine cx + GNB. sputum cx + Acinetobacter, blood cx preliminary negative Vent/trach care pulmonary toilet ABG stable on current settings, keep as os and titrate as needed fup with CXR on Friday CT C/A/P Dense left lower lobe pulmonary parenchymal consolidation, likely pneumonia. No definite acute enteric abnormality Possible mild constipation Gastrostomy in good position Borderline splenomegaly Prostatomegaly Cholelithiasis get abdominal US due to findings of cholelithiasis, but LFT/bili WNL strict aspiration precautions, GT feeding, monitor tolerance ECG with profound bradycardia ?sick sinus syndrome cardio eval appreciated per cardio hemodynamically stable and asymptomatic no medications that can aggravate bradyarrhythmias no current indication for emergent temporary pacemaker. ECHO with EF 40-45% will need medical management for systolic heart failure - per cardio discretion DVT GI prophylaxis pain management bowel regimen case discussed and evaluated by supervising physician Subjective Allergies: Coded Allergies: No Known Allergies (Unverified , 02/27/17) Subjective afebrile, no leukocytosis remain in sinus federico 40th seen and evaluated by cardio Objective Last 24 Hour Vital Signs Date Time Temp Pulse Resp B/P Pulse Ox O2 Delivery O2 Flow Rate FiO2 03/02/17 08:14 98.4 50 20 148/64 100 Mechanical Ventilator 03/02/17 08:00 47 03/02/17 08:00 45 03/02/17 07:17 46 16 35 03/02/17 04:42 52 16 35 03/02/17 04:00 98.0 49 17 112/44 100 Mechanical Ventilator 35 03/02/17 04:00 45 03/02/17 03:47 41 03/02/17 02:55 99.0 03/02/17 02:38 60 20 35 03/02/17 00:40 52 16 35 03/02/17 00:23 52 03/02/17 00:00 45 03/02/17 00:00 99.4 49 18 110/44 100 Mechanical Ventilator 35 03/01/17 22:58 50 16 35 03/01/17 21:25 52 16 35 03/01/17 20:00 45 03/01/17 20:00 75 7/1/17 20:00 99.0 47 17 115/46 100 Mechanical Ventilator 35 03/01/17 19:16 46 03/01/17 18:46 50 19 35 03/01/17 16:30 51 18 35 03/01/17 16:00 98.2 60 21 123/69 99 Mechanical Ventilator 35 03/01/17 16:00 45 03/01/17 16:00 75 03/01/17 14:41 48 16 35 03/01/17 12:57 51 18 35 03/01/17 12:00 97.7 52 16 127/73 98 Mechanical Ventilator 35 03/01/17 12:00 45 03/01/17 12:00 45 03/01/17 10:55 49 16 35 Intake and Output 03/01/17 03/02/17 19:00 07:00 Intake Total 1650.0 ml 1382.5 ml Output Total 1200 ml 700 ml Balance 450.0 ml 682.5 ml Free Water 100 ml 100 ml IV Total 1190.0 ml 892.5 ml Tube Feeding 300 ml 270 ml Other 60 ml 120 ml Output Urine Total 1200 ml 700 ml Objective General Appearance: other - bedridden elderly vent dependent male Vent AC 600- 35-16 HEENT: normocephalic, atraumatic, status post trach - Shiley#6, secretions scant, clear, thick Respiratory/Chest: no respiratory distress, few scattered rhonchi Cardiovascular: regular rhythm, bradycardia Abdomen: normal bowel sounds, soft, non tender, G tube Extremities: no edema Neurologic/Psychiatric: abnormal gait - bedridden, alert, awake, poorly but responsive Musculoskeletal: atrophy - BLE Microbiology Date/Time Source Procedure Growth Status 02/27/17 13:05 Blood Blood Culture - Preliminary NO GROWTH AFTER 48 HOURS Resulted 02/27/17 13:00 Blood Blood Culture - Preliminary NO GROWTH AFTER 48 HOURS Resulted 02/28/17 12:20 Sputum Gram Stain Pending Resulted 02/28/17 12:20 Sputum Culture - Preliminary Gram Negative Bacillus 1 Resulted 02/27/17 12:25 Nasal Nares MRSA Culture - Final NO METHICILLIN RESISTANT STAPH AUREUS... Complete 02/27/17 13:23 Urine,Clean Catch Urine Culture - Final Acinetobacter Baumannii Complx Complete 02/27/17 12:25 Rectum VRE Culture - Final Enterococcus Faecalis - Vre Complete Laboratory Tests 03/02/17 08:45: White Blood Count 10.1, Red Blood Count 3.97L, Hemoglobin 12.8L, Hematocrit 38.9L, Mean Corpuscular Volume 98, Mean Corpuscular Hemoglobin 32.2H, Mean Corpuscular Hemoglobin Concent 32.9, Red Cell Distribution Width 13.1, Platelet Count 153, Mean Platelet Volume 9.6, Neutrophils (%) (Auto) 70.2, Lymphocytes (% ) (Auto) 18.0L, Monocytes (%) (Auto) 8.4, Eosinophils (%) (Auto) 2.3, Basophils (%) (Auto) 1.2, Sodium Level 138, Potassium Level 4.4, Chloride Level 99, Carbon Dioxide Level 21, Anion Gap 18H, Blood Urea Nitrogen 11, Creatinine 0.7, Estimat Glomerular Filtration Rate , Glucose Level 140H, Calcium Level 8.8 Current Medications Medications (Trade) Dose Ordered Sig/Kevin Route PRN Reason Start Time Stop Time Status Last Admin Dose Admin Acetaminophen (Tylenol) 650 mg Q4H PRN ORAL FEVER 02/27/17 13:45 03/29/17 13:44 03/02/17 01:56 Albuterol/ Ipratropium (DuoNeb 0.5-3(2.5)mg/3ml) 3 ml Q4H PRN HHN Shortness of Breath 02/27/17 13:45 03/04/17 13:44 Dextrose STAT PRN IV Hypoglycemia 02/27/17 13:45 03/29/17 13:44 Docusate Sodium (Colace) 100 mg THREE TIMES A DAY NG 02/28/17 18:00 03/30/17 17:59 03/02/17 09:03 Heparin Sodium (Porcine) (Heparin 5000 units/ml) 5,000 units EVERY 12 HOURS SUBQ 02/27/17 21:00 03/29/17 20:59 03/02/17 09:05 Lansoprazole (Prevacid) 30 mg DAILY GT 03/01/17 09:00 03/31/17 08:59 03/02/17 09:03 Levothyroxine Sodium 75 mcg 75 mcg ACBREAKFAST GT 03/02/17 06:30 04/01/17 06:29 03/02/17 06:17 Lorazepam (Ativan 2mg/ml 1ml) 2 mg Q2H PRN IV For Anxiety 02/27/17 13:45 03/06/17 13:44 03/01/17 13:49 Meropenem/Sodium Chloride (Merrem/Sodium Chloride) 110 ml @ 220 mls/hr Q8HR IVPB 03/02/17 10:30 03/07/17 10:29 UNV Morphine Sulfate (Morphine Sulfate) 4 mg Q4H PRN IVP Severe Pain (Pain Scale 7-10) 02/27/17 13:45 03/06/17 13:44 Ondansetron HCl (Zofran) 4 mg Q6H PRN IVP Nausea & Vomiting 02/27/17 13:45 03/29/17 13:44 Phosphorus (Phospha 250 Neutral) 250 mg THREE TIMES A DAY GT 03/01/17 14:44 03/03/17 12:00 03/02/17 09:03 Polyethylene Glycol (Miralax) 17 gm BEDTIME GT 02/28/17 21:00 03/30/17 20:59 03/01/17 21:04 Polyethylene Glycol 17 gm 17 gm DAILYPRN PRN GT Constipation 03/01/17 14:44 03/29/17 13:44 Sodium Chloride (Sodium Chloride 1000ml bag) 1,000 ml @ 50 mls/hr Q20H IV 03/01/17 22:10 03/31/17 22:09 03/01/17 22:10 Vancomycin HCl (Vanco rx to dose) 1 ea DAILY PRN MISC . 02/27/17 20:15 03/29/17 20:14 Vancomycin HCl/ Dextrose (Vancomycin/D5W) 325 ml @ 162.5 mls/ hr Q24H IVPB 02/28/17 18:00 03/05/17 17:59 03/01/17 17:41 Stuart (Luis Alberto)Nayely NP Mar 02, 2017 10:37
--- NOTE | 2017-03-02 10:41 | Diagnostic Imaging Report ---
Indication: Dyspnea Comparison: 02/27/17 A single view chest radiograph was obtained. Findings: Tracheostomy noted. Heart is enlarged. Prominent vascular markings demonstrated without overt CHF. Impression: No change. No overt CHF.
[2017-03-02 12:15] VITALS: BP 143/63
[2017-03-02] MEDS: Meropenem 1 GM in NS 110 ML IVPB SCH ×2 (12:36→20:31)
[2017-03-02] MEDS ORDERED: DuoNeb 0.5-3(2.5)mg/3ml neb HHN PRN (13:45)
[2017-03-02 16:00] VITALS: BP 133/67
[2017-03-02] MEDS ORDERED: Tubing IV Secondary IV ONE (17:17)
[2017-03-02] MEDS: Vancomycin 1.5 GM in D5W 325 ML IVPB SCH (18:00)
[2017-03-02 20:00] VITALS: BP 128/67
[2017-03-02] MEDS: Miralax 17gm pkt GT SCH (20:31)
[2017-03-03] VITALS: BP 130/70
--- NOTE | 2017-03-03 02:16 | Progress Note ---
DATE: 03/02/2017 CARDIOLOGY PROGRESS NOTE SUBJECTIVE: The patient is on ventilator support via tracheostomy. He is awake, alert and interactive. He has not had any episodes of loss of consciousness or altered mentation. His monitored rhythm remains sinus bradyarrhythmia. Heart rates in the high 40s to 60s. No pauses noted. OBJECTIVE: VITAL SIGNS: Blood pressure 148/64, pulse 60, respiratory rate 20, and afebrile. LUNGS: Bilateral breath sounds. Few rhonchi. HEART: Regular rhythm. Slow rate. Normal S1 and S2. ABDOMEN: Soft. EXTREMITIES: No edema. LABORATORY DATA: White count 10 and hemoglobin 12.8. Sodium 138, potassium 4.4, bicarbonate 21, BUN 11 and creatinine 0.7. Troponin is negative. IMPRESSION: 1. Respiratory failure now ventilator dependent. 2. Sick sinus syndrome with bradyarrhythmias presently asymptomatic. 3. Dysphagia with gastrostomy tube. 4. Aspiration pneumonia. 5. Sepsis. 6. Urinary tract infection. 7. Hypertensive cardiomyopathy. 8. Chronic diastolic and systolic congestive heart failure. PLAN: 1. Ventilator support. 2. Antimicrobials. 3. DVT prophylaxis. 4. Monitor volume status. 5. Diuresis based on clinical parameters. 6. Trending of natriuretic peptide assay. 7. Titration of anti-failure regimen. 8. The patient is not on any medications that have negative chronotropic potential. Ultimately may require a pacemaker. Although, at this time based on his nonambulatory state, there is no urgent indication. Vikram Mari M.D. DR: BERTRAM JOB#: [id number] CC:
[2017-03-03 04:00] VITALS: BP 122/72
[2017-03-03] MEDS: Meropenem 1 GM in NS 110 ML IVPB SCH ×4 (04:00→20:04)
[2017-03-03 05:24] LABS: BASOPHILS % (AUTO) 0.9 % (0.0-2.0); EOSINOPHILS % (AUTO) 1.2 % (0.0-3.0); LYMPHOCYTES % (AUTO) 22.7 % (20.0-45.0); MEAN CORPUSCULAR HGB CONC 34.5 G/DL (32.0-36.0); MEAN CORPUSCULAR VOLUME 96 FL (80-99); MEAN PLATELET VOLUME 10.1 FL (6.5-10.1); NEUTROPHILS % (AUTO) 65.2 % (45.0-75.0); PLATELET COUNT 170 K/UL (150-450); RED BLOOD COUNT 3.54 M/UL (4.70-6.10); RED CELL DISTRIBUTION WIDTH 12.8 % (11.6-14.8); WHITE BLOOD COUNT 11.2 K/UL (4.8-10.8)
[2017-03-03 06:03] LABS: ANION GAP 17 (5-15); CALCIUM 8.4 mg/dL (8.6-10.2); CARBON DIOXIDE 22 mEQ/L (20-30); CHLORIDE 98 mEQ/L (98-107); CREATININE 0.6 mg/dL (0.7-1.2); HEMOLYSIS 4; POTASSIUM 3.1 mEQ/L (3.4-4.9); SODIUM 137 mEQ/L (135-145)
[2017-03-03 08:00] VITALS: BP 143/68
[2017-03-03] MEDS: Vancomycin 750 MG in D5W 275 ML IVPB SCH ×2 (09:13→20:53)
[2017-03-03] MEDS: Phospha 250 Neutral tab GT SCH (09:14)
[2017-03-03] MEDS: Docusate 100mg/10ml Liq NG SCH ×3 (09:14→18:01)
[2017-03-03] MEDS: Heparin 5000 units/ml inj SUBQ SCH ×2 (09:17→20:54)
--- NOTE | 2017-03-03 09:31 | Cardiology Report ---
APPROVED REPORT EXAM: Two-dimensional and M-mode echocardiogram with Doppler and color Doppler. INDICATION Atrioventricular Block Technically difficult and limited study due to poor acoustic windows. Study quality precludes accurate assessment of regional wall motion. M-mode measurements and short axis could not be obtained due to cardiac position. Global left ventricular hypokinesis. Apical segments are hypokinetic. Normal left ventricular chamber size. Left ventricular ejection fraction estimated to be 40 %. No evidence of ventricular hypertrophy. Anterior Echo-free space, may be due to pericardial fat or effusion. All other cardiac chamber sizes are within normal limits. Mild focal aortic valve sclerosis with adequate cusp excursion. Mildly thickened mitral valve leaflets with normal excursion. Mild mitral annulus and aortic root calcification. Pulmonic valve not visualized. Normal tricuspid valve structure. Subcostal veiws could not be obtained due to GI tube. A color flow and spectral Doppler study was performed and revealed: Mild aortic regurgitation. Trace mitral regurgitation. Mitral diastolic velocities suggest reduced left ventricular relaxation (Grade I). Trace tricuspid regurgitation.
--- NOTE | 2017-03-03 09:37 | Diagnostic Imaging Report ---
Indication:Abdominal pain Technique: Grayscale and duplex Doppler imaging of the abdomen performed. Comparison: None Findings: The liver is enlarged measuring 20 cm. Gallstones are present. There is no splenomegaly, free fluid or hydronephrosis demonstrated. Sonographic Morgan's is negative. The main portal vein is patent by Doppler examination. Pancreas is grossly unremarkable as visualized. CBD is 4.8 mm. IVC and aorta are grossly unremarkable. Impression: Hepatomegaly. Cholelithiasis.
--- NOTE | 2017-03-03 11:34 | Pulmonology Progress Note ---
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 Discussed with: nurses, consultants, disease case manager rn Subjective ROS Limited/Unobtainable: Yes Allergies: Coded Allergies: No Known Allergies (Unverified , 02/27/17) Objective Last 24 Hour Vital Signs Date Time Temp Pulse Resp B/P Pulse Ox O2 Delivery O2 Flow Rate FiO2 03/03/17 11:02 49 16 35 03/03/17 09:01 48 16 35 03/03/17 08:00 44 03/03/17 08:00 99.0 52 20 143/68 98 Mechanical Ventilator 35 03/03/17 08:00 35 03/03/17 06:45 50 16 35 03/03/17 05:21 53 16 35 03/03/17 04:00 98.0 50 19 122/72 100 Mechanical Ventilator 35 03/03/17 04:00 35 03/03/17 03:42 46 03/03/17 03:09 52 16 35 03/03/17 01:12 59 16 35 03/03/17 00:00 35 03/03/17 00:00 97.9 54 20 130/70 100 Mechanical Ventilator 03/02/17 23:55 57 03/02/17 23:17 62 16 35 03/02/17 21:13 60 17 35 03/02/17 20:00 35 03/02/17 20:00 59 03/02/17 20:00 98.0 60 18 128/67 100 Mechanical Ventilator 03/02/17 19:01 58 21 35 03/02/17 16:54 62 17 35 03/02/17 16:00 97.7 57 22 133/67 100 Mechanical Ventilator 03/02/17 16:00 45 03/02/17 16:00 58 03/02/17 14:35 66 17 35 03/02/17 12:56 57 20 35 03/02/17 12:15 97.7 49 18 143/63 99 Mechanical Ventilator 03/02/17 12:00 57 03/02/17 12:00 45 Intake and Output 03/02/17 03/03/17 19:00 07:00 Intake Total 1525.0 ml 1587.5 ml Output Total 350 ml 800 ml Balance 1175.0 ml 787.5 ml Free Water 100 ml 50 ml IV Total 1015.0 ml 1177.5 ml Tube Feeding 360 ml 300 ml Other 50 ml 60 ml Output Urine Total 350 ml 800 ml General Appearance: WD/WN HEENT: normocephalic, atraumatic Respiratory/Chest: chest wall non-tender, decreased breath sounds Cardiovascular: normal peripheral pulses, normal rate Abdomen: normal bowel sounds Microbiology Date/Time Source Procedure Growth Status 02/28/17 12:20 Sputum Gram Stain - Final Complete 02/28/17 12:20 Sputum Culture - Final Serratia Marcescens Usual Upper Respiratory Maria Elena Complete Laboratory Tests 03/02/17 17:10: Vancomycin Level Trough 9.5 03/03/17 03:45: White Blood Count 11.2H, Red Blood Count 3.54L, Hemoglobin 11.7L, Hematocrit 33.9L, Mean Corpuscular Volume 96, Mean Corpuscular Hemoglobin 33.0H, Mean Corpuscular Hemoglobin Concent 34.5, Red Cell Distribution Width 12.8, Platelet Count 170, Mean Platelet Volume 10.1, Neutrophils (%) (Auto) 65.2, Lymphocytes ( %) (Auto) 22.7, Monocytes (%) (Auto) 10.0, Eosinophils (%) (Auto) 1.2, Basophils (%) (Auto) 0.9, Sodium Level 137, Potassium Level 3.1L, Chloride Level 98, Carbon Dioxide Level 22, Anion Gap 17H, Blood Urea Nitrogen 10, Creatinine 0.6L, Estimat Glomerular Filtration Rate , Glucose Level 126H, Calcium Level 8.4L Current Medications Medications (Trade) Dose Ordered Sig/Kevin Route PRN Reason Start Time Stop Time Status Last Admin Dose Admin Acetaminophen (Tylenol) 650 mg Q4H PRN ORAL FEVER 02/27/17 13:45 03/29/17 13:44 03/02/17 01:56 Albuterol/ Ipratropium 3 ml 3 ml Q4H PRN HHN Shortness of Breath 03/02/17 13:45 03/07/17 23:59 Dextrose (Dextrose 50%) STAT PRN IV Hypoglycemia 02/27/17 13:45 03/29/17 13:44 Docusate Sodium (Colace) 100 mg THREE TIMES A DAY NG 02/28/17 18:00 03/30/17 17:59 03/03/17 09:14 Heparin Sodium (Porcine) (Heparin 5000 units/ml) 5,000 units EVERY 12 HOURS SUBQ 02/27/17 21:00 03/29/17 20:59 03/03/17 09:17 Lansoprazole (Prevacid) 30 mg DAILY GT 03/01/17 09:00 03/31/17 08:59 03/03/17 09:14 Levothyroxine Sodium 75 mcg 75 mcg ACBREAKFAST GT 03/02/17 06:30 04/01/17 06:29 03/03/17 05:34 Lorazepam (Ativan 2mg/ml 1ml) 2 mg Q2H PRN IV For Anxiety 02/27/17 13:45 03/06/17 13:44 03/01/17 13:49 Meropenem/Sodium Chloride (Merrem/Sodium Chloride) 110 ml @ 220 mls/hr Q8H IVPB 03/02/17 12:00 03/07/17 11:59 03/03/17 04:00 Morphine Sulfate (Morphine Sulfate) 4 mg Q4H PRN IVP Severe Pain (Pain Scale 7-10) 02/27/17 13:45 03/06/17 13:44 Ondansetron HCl (Zofran) 4 mg Q6H PRN IVP Nausea & Vomiting 02/27/17 13:45 03/29/17 13:44 Phosphorus (Phospha 250 Neutral) 250 mg THREE TIMES A DAY GT 03/01/17 14:44 03/03/17 12:00 03/03/17 09:14 Polyethylene Glycol (Miralax) 17 gm BEDTIME GT 02/28/17 21:00 03/30/17 20:59 03/02/17 20:31 Polyethylene Glycol 17 gm 17 gm DAILYPRN PRN GT Constipation 03/01/17 14:44 03/29/17 13:44 Sodium Chloride (Sodium Chloride 1000ml bag) 1,000 ml @ 50 mls/hr Q20H IV 03/01/17 22:10 03/31/17 22:09 03/02/17 15:04 Vancomycin HCl (Vanco rx to dose) 1 ea DAILY PRN MISC . 02/27/17 20:15 03/29/17 20:14 Vancomycin HCl/ Dextrose (Vancomycin/D5W) 275 ml @ 183.333 mls/hr Q12HR IVPB 03/03/17 09:00 03/08/17 08:59 03/03/17 09:13 CRISTIAN HURLEY Mar 03, 2017 11:34
[2017-03-03 12:00] VITALS: BP 105/53
[2017-03-03] MEDS ORDERED: KCl 10% 40mEq/30ml liquid NG ONE (12:00)
--- NOTE | 2017-03-03 12:18 | General Progress Note ---
Assessment/Plan Problem List: (1) Chronic respiratory failure ICD Codes: J96.10 - Chronic respiratory failure, unspecified whether with hypoxia or hypercapnia SNOMED: 15302626 (2) Aspiration pneumonia ICD Codes: J69.0 - Pneumonitis due to inhalation of food and vomit SNOMED: 006342714 (3) Sepsis ICD Codes: A41.9 - Sepsis, unspecified organism SNOMED: 10099251 (4) Acute and chronic respiratory failure ICD Codes: J96.20 - Acute and chronic respiratory failure, unspecified whether with hypoxia or hypercapnia SNOMED: 82399493, 73857919 (5) Bradycardia ICD Codes: R00.1 - Bradycardia, unspecified SNOMED: 25859316 (6) Acute abdominal pain ICD Codes: R10.9 - Unspecified abdominal pain SNOMED: 759754436 Status: stable, progressing, tolerating diet Assessment/Plan vent abx gi eval ot pt diet cbc bmp am dia la eval vs dc plan snf Subjective Constitutional: Reports: weakness Allergies: Coded Allergies: No Known Allergies (Unverified , 02/27/17) All Systems: reviewed and negative except above Subjective trach vent altered Objective Last 24 Hour Vital Signs Date Time Temp Pulse Resp B/P Pulse Ox O2 Delivery O2 Flow Rate FiO2 03/03/17 11:02 49 16 35 03/03/17 09:01 48 16 35 03/03/17 08:00 44 03/03/17 08:00 99.0 52 20 143/68 98 Mechanical Ventilator 35 03/03/17 08:00 35 03/03/17 06:45 50 16 35 03/03/17 05:21 53 16 35 03/03/17 04:00 98.0 50 19 122/72 100 Mechanical Ventilator 35 03/03/17 04:00 35 03/03/17 03:42 46 03/03/17 03:09 52 16 35 03/03/17 01:12 59 16 35 03/03/17 00:00 35 03/03/17 00:00 97.9 54 20 130/70 100 Mechanical Ventilator 35 03/02/17 23:55 57 03/02/17 23:17 62 16 35 03/02/17 21:13 60 17 35 03/02/17 20:00 35 03/02/17 20:00 59 03/02/17 20:00 98.0 60 18 128/67 100 Mechanical Ventilator 03/02/17 19:01 58 21 35 03/02/17 16:54 62 17 35 03/02/17 16:00 97.7 57 22 133/67 100 Mechanical Ventilator 03/02/17 16:00 45 03/02/17 16:00 58 03/02/17 14:35 66 17 35 03/02/17 12:56 57 20 35 Intake and Output 03/02/17 03/03/17 19:00 07:00 Intake Total 1525.0 ml 1587.5 ml Output Total 350 ml 800 ml Balance 1175.0 ml 787.5 ml Free Water 100 ml 50 ml IV Total 1015.0 ml 1177.5 ml Tube Feeding 360 ml 300 ml Other 50 ml 60 ml Output Urine Total 350 ml 800 ml Laboratory Tests 03/02/17 17:10: Vancomycin Level Trough 9.5 03/03/17 03:45: White Blood Count 11.2H, Red Blood Count 3.54L, Hemoglobin 11.7L, Hematocrit 33.9L, Mean Corpuscular Volume 96, Mean Corpuscular Hemoglobin 33.0H, Mean Corpuscular Hemoglobin Concent 34.5, Red Cell Distribution Width 12.8, Platelet Count 170, Mean Platelet Volume 10.1, Neutrophils (%) (Auto) 65.2, Lymphocytes ( %) (Auto) 22.7, Monocytes (%) (Auto) 10.0, Eosinophils (%) (Auto) 1.2, Basophils (%) (Auto) 0.9, Sodium Level 137, Potassium Level 3.1L, Chloride Level 98, Carbon Dioxide Level 22, Anion Gap 17H, Blood Urea Nitrogen 10, Creatinine 0.6L, Estimat Glomerular Filtration Rate , Glucose Level 126H, Calcium Level 8.4L Height (Feet): 5 Height (Inches): 4.00 Weight (Pounds): 180 General Appearance: lethargic EENT: normal ENT inspection Neck: normal alignment Cardiovascular: normal peripheral pulses, normal rate, regular rhythm Respiratory/Chest: chest wall non-tender, lungs clear, normal breath sounds Abdomen: normal bowel sounds, non tender, soft Extremities: normal inspection Edema: no edema noted Arm (L), no edema noted Arm (R), no edema noted Leg (L), no edema noted Leg (R), no edema noted Pedal (L), no edema noted Pedal (R), no edema noted Generalized Neurologic: motor weakness Skin: normal pigmentation, warm/dry KOBE HERNANDEZ Mar 03, 2017 12:18
--- NOTE | 2017-03-03 13:44 | GI Progress Note ---
Assessment/Plan Problems: (1) Hypoalbuminemia ICD Codes: E88.09 - Other disorders of plasma-protein metabolism, not elsewhere classified SNOMED: 537716324 (2) Constipation ICD Codes: K59.00 - Constipation, unspecified SNOMED: 44659172 (3) Acute abdominal pain ICD Codes: R10.9 - Unspecified abdominal pain SNOMED: 139444935 Status: stable Status Narrative Discussed with Dr. Medrano. Assessment/Plan supportive care GTFs per dietary >> Jevity 1.2 @60ml bowel regime >> colace + miralax monitor H&H, transfuse prn prevacid GT fu labs Subjective Subjective limited Objective Last 24 Hour Vital Signs Date Time Temp Pulse Resp B/P Pulse Ox O2 Delivery O2 Flow Rate FiO2 03/03/17 12:00 98.1 48 16 105/53 98 Mechanical Ventilator 35 03/03/17 12:00 35 03/03/17 11:02 49 16 35 03/03/17 09:01 48 16 35 03/03/17 08:00 44 03/03/17 08:00 99.0 52 20 143/68 98 Mechanical Ventilator 35 03/03/17 08:00 35 03/03/17 06:45 50 16 35 03/03/17 05:21 53 16 35 03/03/17 04:00 98.0 50 19 122/72 100 Mechanical Ventilator 35 03/03/17 04:00 35 03/03/17 03:42 46 03/03/17 03:09 52 16 35 03/03/17 01:12 59 16 35 03/03/17 00:00 35 03/03/17 00:00 97.9 54 20 130/70 100 Mechanical Ventilator 35 03/02/17 23:55 57 03/02/17 23:17 62 16 35 03/02/17 21:13 60 17 35 03/02/17 20:00 35 03/02/17 20:00 59 03/02/17 20:00 98.0 60 18 128/67 100 Mechanical Ventilator 03/02/17 19:01 58 21 35 03/02/17 16:54 62 17 35 03/02/17 16:00 97.7 57 22 133/67 100 Mechanical Ventilator 03/02/17 16:00 45 03/02/17 16:00 58 03/02/17 14:35 66 17 35 Intake and Output 03/02/17 03/03/17 19:00 07:00 Intake Total 1525.0 ml 1587.5 ml Output Total 350 ml 800 ml Balance 1175.0 ml 787.5 ml Free Water 100 ml 50 ml IV Total 1015.0 ml 1177.5 ml Tube Feeding 360 ml 300 ml Other 50 ml 60 ml Output Urine Total 350 ml 800 ml Laboratory Tests Test 03/02/17 17:10 03/03/17 03:45 Vancomycin Level Trough 9.5 ug/mL (5.0-12.0) White Blood Count 11.2 K/UL (4.8-10.8) H Red Blood Count 3.54 M/UL (4.70-6.10) L Hemoglobin 11.7 G/DL (14.2-18.0) L Hematocrit 33.9 % (42.0-52.0) L Mean Corpuscular Volume 96 FL (80-99) Mean Corpuscular Hemoglobin 33.0 PG (27.0-31.0) H Mean Corpuscular Hemoglobin Concent 34.5 G/DL (32.0-36.0) Red Cell Distribution Width 12.8 % (11.6-14.8) Platelet Count 170 K/UL (150-450) Mean Platelet Volume 10.1 FL (6.5-10.1) Neutrophils (%) (Auto) 65.2 % (45.0-75.0) Lymphocytes (%) (Auto) 22.7 % (20.0-45.0) Monocytes (%) (Auto) 10.0 % (1.0-10.0) Eosinophils (%) (Auto) 1.2 % (0.0-3.0) Basophils (%) (Auto) 0.9 % (0.0-2.0) Sodium Level 137 mEQ/L (135-145) Potassium Level 3.1 mEQ/L (3.4-4.9) L Chloride Level 98 mEQ/L (98-107) Carbon Dioxide Level 22 mEQ/L (20-30) Anion Gap 17 (5-15) H Blood Urea Nitrogen 10 mg/dL (7-23) Creatinine 0.6 mg/dL (0.7-1.2) L Estimat Glomerular Filtration Rate mL/min (>60) Glucose Level 126 mg/dL (74-106) H Calcium Level 8.4 mg/dL (8.6-10.2) L Height (Feet): 5 Height (Inches): 4.00 Weight (Pounds): 180 General Appearance: no apparent distress, alert Cardiovascular: normal rate Respiratory/Chest: other - mech vent Abdominal Exam: GT site - c/d/i Lucero Thakkar N.P. Mar 03, 2017 13:44
--- NOTE | 2017-03-03 14:51 | Infectious Diseases Prog Note ---
Assessment/Plan Problems: (1) Sepsis Assessment & Plan: due to pneumonia and UTI, on vancomycin and meropenem , blood culture is negative (2) Aspiration pneumonia Assessment & Plan: due to serratia marcescens, continue meropenem and vancomycin for 10 days EOT 03/12/17 (3) Acute and chronic respiratory failure Assessment & Plan: due to the above, intubated on mechanical ventilation , monitor ABG, and CXR (4) Chronic respiratory failure Assessment & Plan: S/P Trach, continue trach care , titrate O2 as needed (5) Acute abdominal pain Assessment & Plan: CT abdomen didn't show any abdominal pathology , further management as per primary team (6) UTI (urinary tract infection) Assessment & Plan: with MDR Acinetobacter baumannii , on meropenem for 10 days Subjective ROS Limited/Unobtainable: Yes Allergies: Coded Allergies: No Known Allergies (Unverified , 02/27/17) Subjective he was more awake and alert, communicating by nodding his head, his grand son is at the bedside, afebrile. not on pressors. not federico Objective Vital Signs Last 24 Hour Vital Signs Date Time Temp Pulse Resp B/P Pulse Ox O2 Delivery O2 Flow Rate FiO2 03/03/17 14:32 49 16 35 03/03/17 12:20 48 16 35 03/03/17 12:00 45 03/03/17 12:00 98.1 48 16 105/53 98 Mechanical Ventilator 35 03/03/17 12:00 35 03/03/17 11:02 49 16 35 03/03/17 09:01 48 16 35 03/03/17 08:00 44 03/03/17 08:00 99.0 52 20 143/68 98 Mechanical Ventilator 35 03/03/17 08:00 35 03/03/17 06:45 50 16 35 03/03/17 05:21 53 16 35 03/03/17 04:00 98.0 50 19 122/72 100 Mechanical Ventilator 35 03/03/17 04:00 35 03/03/17 03:42 46 03/03/17 03:09 52 16 35 03/03/17 01:12 59 16 35 03/03/17 00:00 35 03/03/17 00:00 97.9 54 20 130/70 100 Mechanical Ventilator 35 03/02/17 23:55 57 03/02/17 23:17 62 16 35 03/02/17 21:13 60 17 35 03/02/17 20:00 35 03/02/17 20:00 59 03/02/17 20:00 98.0 60 18 128/67 100 Mechanical Ventilator 03/02/17 19:01 58 21 35 03/02/17 16:54 62 17 35 03/02/17 16:00 97.7 57 22 133/67 100 Mechanical Ventilator 03/02/17 16:00 45 03/02/17 16:00 58 Height (Feet): 5 Height (Inches): 4.00 Weight (Pounds): 180 General Appearance: WD/WN, no acute distress HEENT: normocephalic, atraumatic, anicteric, mucous membranes moist Respiratory/Chest: chest wall non-tender, no respiratory distress, no accessory muscle use, decreased breath sounds, crackles/rales Cardiovascular: normal peripheral pulses, normal rate, regular rhythm, no gallop/murmur Abdomen: normal bowel sounds, soft, non tender, no organomegaly, non distended , no mass Extremities: no cyanosis, no clubbing Skin: no rash, no lesions, ulcers Laboratory Tests Test 03/02/17 17:10 03/03/17 03:45 Vancomycin Level Trough 9.5 ug/mL (5.0-12.0) White Blood Count 11.2 K/UL (4.8-10.8) H Red Blood Count 3.54 M/UL (4.70-6.10) L Hemoglobin 11.7 G/DL (14.2-18.0) L Hematocrit 33.9 % (42.0-52.0) L Mean Corpuscular Volume 96 FL (80-99) Mean Corpuscular Hemoglobin 33.0 PG (27.0-31.0) H Mean Corpuscular Hemoglobin Concent 34.5 G/DL (32.0-36.0) Red Cell Distribution Width 12.8 % (11.6-14.8) Platelet Count 170 K/UL (150-450) Mean Platelet Volume 10.1 FL (6.5-10.1) Neutrophils (%) (Auto) 65.2 % (45.0-75.0) Lymphocytes (%) (Auto) 22.7 % (20.0-45.0) Monocytes (%) (Auto) 10.0 % (1.0-10.0) Eosinophils (%) (Auto) 1.2 % (0.0-3.0) Basophils (%) (Auto) 0.9 % (0.0-2.0) Sodium Level 137 mEQ/L (135-145) Potassium Level 3.1 mEQ/L (3.4-4.9) L Chloride Level 98 mEQ/L (98-107) Carbon Dioxide Level 22 mEQ/L (20-30) Anion Gap 17 (5-15) H Blood Urea Nitrogen 10 mg/dL (7-23) Creatinine 0.6 mg/dL (0.7-1.2) L Estimat Glomerular Filtration Rate mL/min (>60) Glucose Level 126 mg/dL (74-106) H Calcium Level 8.4 mg/dL (8.6-10.2) L Current Medications Medications (Trade) Dose Ordered Sig/Kevin Route PRN Reason Start Time Stop Time Status Last Admin Dose Admin Acetaminophen (Tylenol) 650 mg Q4H PRN ORAL FEVER 02/27/17 13:45 03/29/17 13:44 03/02/17 01:56 Albuterol/ Ipratropium 3 ml 3 ml Q4H PRN HHN Shortness of Breath 03/02/17 13:45 03/07/17 23:59 Dextrose (Dextrose 50%) STAT PRN IV Hypoglycemia 02/27/17 13:45 03/29/17 13:44 Docusate Sodium (Colace) 100 mg THREE TIMES A DAY NG 02/28/17 18:00 03/30/17 17:59 03/03/17 14:34 Heparin Sodium (Porcine) (Heparin 5000 units/ml) 5,000 units EVERY 12 HOURS SUBQ 02/27/17 21:00 03/29/17 20:59 03/03/17 09:17 Lansoprazole (Prevacid) 30 mg DAILY GT 03/01/17 09:00 03/31/17 08:59 03/03/17 09:14 Levothyroxine Sodium (Synthroid) 75 mcg ACBREAKFAST GT 03/02/17 06:30 04/01/17 06:29 03/03/17 05:34 Lorazepam (Ativan 2mg/ml 1ml) 2 mg Q2H PRN IV For Anxiety 02/27/17 13:45 03/06/17 13:44 03/01/17 13:49 Meropenem/Sodium Chloride (Merrem/Sodium Chloride) 110 ml @ 220 mls/hr Q12HR@0800,2000 IVPB 03/03/17 20:00 03/08/17 19:59 Morphine Sulfate (Morphine Sulfate) 4 mg Q4H PRN IVP Severe Pain (Pain Scale 7-10) 02/27/17 13:45 03/06/17 13:44 Ondansetron HCl (Zofran) 4 mg Q6H PRN IVP Nausea & Vomiting 02/27/17 13:45 03/29/17 13:44 Polyethylene Glycol (Miralax) 17 gm BEDTIME GT 02/28/17 21:00 03/30/17 20:59 03/02/17 20:31 Polyethylene Glycol 17 gm 17 gm DAILYPRN PRN GT Constipation 03/01/17 14:44 03/29/17 13:44 Sodium Chloride (Sodium Chloride 1000ml bag) 1,000 ml @ 50 mls/hr Q20H IV 03/01/17 22:10 03/31/17 22:09 03/03/17 14:35 Vancomycin HCl (Vanco rx to dose) 1 ea DAILY PRN MISC . 02/27/17 20:15 03/29/17 20:14 Vancomycin HCl 750 mg/Dextrose 275 ml @ 183.333 mls/hr Q12HR IVPB 03/03/17 09:00 03/08/17 08:59 03/03/17 09:13 Papito Don M.D. Mar 03, 2017 14:51
[2017-03-03 16:00] VITALS: BP 141/60
[2017-03-03 20:00] VITALS: BP 158/84
[2017-03-03] MEDS: Miralax 17gm pkt GT SCH (20:53)
[2017-03-03] MEDS ORDERED: Acetaminophen 650mg/20.3ml GT PRN (22:45)
[2017-03-04] VITALS: BP 133/93
[2017-03-04 03:58] VITALS: BP 117/63
--- NOTE | 2017-03-04 04:15 | Progress Note ---
DATE: 03/03/2017 CARDIOLOGY PROGRESS NOTE: SUBJECTIVE: The patient remains on ventilator support via tracheostomy. He is awake and alert. No distress. Monitored rhythm, sinus bradycardia, with some episodes of junctional bradycardia in the 40s. Blood pressure remains stable. OBJECTIVE: VITAL SIGNS: Blood pressure is 122/72, pulse 50, respiratory rate 19, and afebrile. NECK: Supple. LUNGS: With thin trach secretions. Coarse breath sounds. HEART: Regular rhythm. Slow rate. Normal S1 and S2. ABDOMEN: Soft. EXTREMITIES: No edema. LABORATORY DATA: Reviewed. Potassium is 3.1. IMPRESSION: 1. Sinus node disease. 2. Junctional bradycardia. 3. Ventilator-dependent respiratory failure. 4. Hypokalemia. PLAN: 1. Potassium replacement. 2. Check magnesium. 3. Continue ventilator support. 4. The patient is not on any drug therapy at this time that can aggravate chronotropic incompetence. The patient does not have any emergent need for permanent pacing. The patient will be reassessed by Dr. Dominguez in the next several days to assess for elective pacemaker implant. Vikram Mari M.D. DR: Cadence JOB#: [id number] CC:
[2017-03-04 05:48] LABS: BASOPHILS % (AUTO) 0.7 % (0.0-2.0); EOSINOPHILS % (AUTO) 1.9 % (0.0-3.0); LYMPHOCYTES % (AUTO) 18.2 % (20.0-45.0); MEAN CORPUSCULAR HEMOGLOBIN 32.7 PG (27.0-31.0); MEAN CORPUSCULAR HGB CONC 34.4 G/DL (32.0-36.0); MEAN CORPUSCULAR VOLUME 95 FL (80-99); MEAN PLATELET VOLUME 10.5 FL (6.5-10.1); MONOCYTES % (AUTO) 7.9 % (1.0-10.0); NEUTROPHILS % (AUTO) 71.3 % (45.0-75.0); PLATELET COUNT 172 K/UL (150-450); RED CELL DISTRIBUTION WIDTH 12.7 % (11.6-14.8); WHITE BLOOD COUNT 11.8 K/UL (4.8-10.8)
--- NOTE | 2017-03-04 05:48 | General Progress Note ---
Assessment/Plan Problem List: (1) Anemia ICD Codes: D64.9 - Anemia, unspecified SNOMED: 923952570 (2) Chronic respiratory failure ICD Codes: J96.10 - Chronic respiratory failure, unspecified whether with hypoxia or hypercapnia SNOMED: 33827419 (3) Constipation ICD Codes: K59.00 - Constipation, unspecified SNOMED: 27171813 (4) Hypoalbuminemia ICD Codes: E88.09 - Other disorders of plasma-protein metabolism, not elsewhere classified SNOMED: 442999813 (5) UTI (urinary tract infection) ICD Codes: N39.0 - Urinary tract infection, site not specified SNOMED: 32316406 Assessment/Plan supportive care GTFs per dietary >> Jevity 1.2 @60ml bowel regime >> colace + miralax monitor H&H, transfuse prn check stool ob anemia work up prevacid GT fu labs Subjective ROS Limited/Unobtainable: No Allergies: Coded Allergies: No Known Allergies (Unverified , 02/27/17) Objective Last 24 Hour Vital Signs Date Time Temp Pulse Resp B/P Pulse Ox O2 Delivery O2 Flow Rate FiO2 03/04/17 04:35 70 17 35 03/04/17 04:00 74 03/04/17 04:00 35 03/04/17 03:58 99.1 68 16 117/63 98 Mechanical Ventilator 35 03/04/17 02:31 62 20 35 03/04/17 01:20 67 21 35 03/04/17 00:00 98.4 89 26 133/93 99 Mechanical Ventilator 03/04/17 00:00 88 03/04/17 00:00 35 03/03/17 23:27 62 22 35 03/03/17 21:53 77 20 35 03/03/17 20:10 69 03/03/17 20:00 35 03/03/17 20:00 98.4 77 16 158/84 99 Mechanical Ventilator 35 03/03/17 19:35 68 27 35 03/03/17 17:10 37 03/03/17 16:41 56 16 35 03/03/17 16:00 35 03/03/17 16:00 96.8 45 16 141/60 99 Mechanical Ventilator 03/03/17 14:32 49 16 35 03/03/17 12:20 48 16 35 03/03/17 12:00 45 03/03/17 12:00 98.1 48 16 105/53 98 Mechanical Ventilator 35 03/03/17 12:00 35 03/03/17 11:02 49 16 35 03/03/17 09:01 48 16 35 03/03/17 08:00 44 03/03/17 08:00 99.0 52 20 143/68 98 Mechanical Ventilator 35 03/03/17 08:00 35 03/03/17 06:45 50 16 35 Intake and Output 03/03/17 03/04/17 19:00 07:00 Intake Total 1326.666 ml 1326.666 ml Output Total 900 ml Balance 426.666 ml 1326.666 ml Free Water 180 ml IV Total 776.666 ml 926.666 ml Tube Feeding 370 ml 400 ml Output Urine Total 900 ml # Bowel Movements 1 Laboratory Tests 03/04/17 03:45: White Blood Count [Pending], Red Blood Count [Pending], Hemoglobin [Pending], Hematocrit [Pending], Mean Corpuscular Volume [Pending], Mean Corpuscular Hemoglobin [Pending], Mean Corpuscular Hemoglobin Concent [Pending], Red Cell Distribution Width [Pending], Platelet Count [Pending], Mean Platelet Volume [ Pending], Neutrophils (%) (Auto) [Pending], Lymphocytes (%) (Auto) [Pending], Monocytes (%) (Auto) [Pending], Eosinophils (%) (Auto) [Pending], Basophils (%) (Auto) [Pending], Sodium Level [Pending], Potassium Level [Pending], Chloride Level [Pending], Carbon Dioxide Level [Pending], Blood Urea Nitrogen [Pending], Creatinine [Pending], Estimat Glomerular Filtration Rate [Pending], Glucose Level [Pending], Calcium Level [Pending], Phosphorus Level [Pending], Magnesium Level [Pending], Total Bilirubin [Pending], Aspartate Amino Transf (AST/SGOT) [ Pending], Alanine Aminotransferase (ALT/SGPT) [Pending], Alkaline Phosphatase [ Pending], Total Protein [Pending], Albumin [Pending], Globulin [Pending] Height (Feet): 5 Height (Inches): 4.00 Weight (Pounds): 180 General Appearance: no apparent distress EENT: normal ENT inspection Neck: supple Cardiovascular: normal rate Respiratory/Chest: decreased breath sounds Abdomen: normal bowel sounds, non tender, soft Extremities: non-tender AMAIRANI JACOBS Mar 04, 2017 05:48
[2017-03-04 06:15] LABS: ALANINE AMINOTRANSFERASE 64 U/L (3-41); ALBUMIN/GLOBULIN RATIO 1.1 (1.0-2.7); ANION GAP 12 (5-15); ASPARTATE AMINO TRANSFERASE 53 U/L (5-40); CALCIUM 8.4 mg/dL (8.6-10.2); CARBON DIOXIDE 23 mEQ/L (20-30); CHLORIDE 102 mEQ/L (98-107); CREATININE 0.7 mg/dL (0.7-1.2); HEMOLYSIS 3; MAGNESIUM 1.9 mg/dL (1.7-2.5); PHOSPHORUS 1.8 mg/dL (2.5-4.8); POTASSIUM 3.6 mEQ/L (3.4-4.9); SODIUM 137 mEQ/L (135-145); TOTAL PROTEIN 5.6 g/dL (6.6-8.7)
--- NOTE | 2017-03-04 07:23 | General Progress Note ---
Assessment/Plan Problem List: (1) Chronic respiratory failure ICD Codes: J96.10 - Chronic respiratory failure, unspecified whether with hypoxia or hypercapnia SNOMED: 87204538 (2) Aspiration pneumonia ICD Codes: J69.0 - Pneumonitis due to inhalation of food and vomit SNOMED: 517827243 (3) Sepsis ICD Codes: A41.9 - Sepsis, unspecified organism SNOMED: 45765858 (4) Acute and chronic respiratory failure ICD Codes: J96.20 - Acute and chronic respiratory failure, unspecified whether with hypoxia or hypercapnia SNOMED: 73926226, 53129841 (5) Bradycardia ICD Codes: R00.1 - Bradycardia, unspecified SNOMED: 03328654 (6) Acute abdominal pain ICD Codes: R10.9 - Unspecified abdominal pain SNOMED: 297490270 Status: stable, progressing, tolerating diet Assessment/Plan vent abx gi eval ot pt diet cbc bmp am dia la eval vs dc plan snf Subjective Constitutional: Reports: weakness Allergies: Coded Allergies: No Known Allergies (Unverified , 02/27/17) All Systems: reviewed and negative except above Subjective trach vent altered Objective Last 24 Hour Vital Signs Date Time Temp Pulse Resp B/P Pulse Ox O2 Delivery O2 Flow Rate FiO2 03/04/17 07:13 63 16 35 03/04/17 04:35 70 17 35 03/04/17 04:00 74 03/04/17 04:00 35 03/04/17 03:58 99.1 68 16 117/63 98 Mechanical Ventilator 03/04/17 02:31 62 20 35 03/04/17 01:20 67 21 35 03/04/17 00:00 98.4 89 26 133/93 99 Mechanical Ventilator 03/04/17 00:00 88 03/04/17 00:00 35 03/03/17 23:27 62 22 35 03/03/17 21:53 77 20 35 03/03/17 20:10 69 03/03/17 20:00 35 03/03/17 20:00 98.4 77 16 158/84 99 Mechanical Ventilator 35 03/03/17 19:35 68 27 35 03/03/17 17:10 37 03/03/17 16:41 56 16 35 03/03/17 16:00 35 03/03/17 16:00 96.8 45 16 141/60 99 Mechanical Ventilator 35 03/03/17 14:32 49 16 35 03/03/17 12:20 48 16 35 03/03/17 12:00 45 03/03/17 12:00 98.1 48 16 105/53 98 Mechanical Ventilator 35 03/03/17 12:00 35 03/03/17 11:02 49 16 35 03/03/17 09:01 48 16 35 03/03/17 08:00 44 03/03/17 08:00 99.0 52 20 143/68 98 Mechanical Ventilator 35 03/03/17 08:00 35 Intake and Output 03/03/17 03/04/17 19:00 07:00 Intake Total 1326.666 ml 1376.666 ml Output Total 900 ml Balance 426.666 ml 1376.666 ml Free Water 180 ml IV Total 776.666 ml 976.666 ml Tube Feeding 370 ml 400 ml Output Urine Total 900 ml # Bowel Movements 1 Laboratory Tests 03/04/17 03:45: White Blood Count 11.8H, Red Blood Count 3.90L, Hemoglobin 12.7L, Hematocrit 37.0L, Mean Corpuscular Volume 95, Mean Corpuscular Hemoglobin 32.7H, Mean Corpuscular Hemoglobin Concent 34.4, Red Cell Distribution Width 12.7, Platelet Count 172, Mean Platelet Volume 10.5H, Neutrophils (%) (Auto) 71.3, Lymphocytes (%) (Auto) 18.2L, Monocytes (%) (Auto) 7.9, Eosinophils (%) (Auto) 1.9, Basophils (%) (Auto) 0.7, Sodium Level 137, Potassium Level 3.6, Chloride Level 102, Carbon Dioxide Level 23, Anion Gap 12, Blood Urea Nitrogen 11, Creatinine 0.7, Estimat Glomerular Filtration Rate , Glucose Level 116H, Calcium Level 8.4L , Phosphorus Level 1.8L, Magnesium Level 1.9, Total Bilirubin 0.4, Aspartate Amino Transf (AST/SGOT) 53H, Alanine Aminotransferase (ALT/SGPT) 64H, Alkaline Phosphatase 69, Total Protein 5.6L, Albumin 3.0L, Globulin 2.6, Albumin/ Globulin Ratio 1.1 Height (Feet): 5 Height (Inches): 4.00 Weight (Pounds): 180 General Appearance: lethargic EENT: normal ENT inspection Neck: normal alignment Cardiovascular: normal peripheral pulses, normal rate, regular rhythm Respiratory/Chest: chest wall non-tender, lungs clear, normal breath sounds Abdomen: normal bowel sounds, non tender, soft Extremities: normal inspection Edema: no edema noted Arm (L), no edema noted Arm (R), no edema noted Leg (L), no edema noted Leg (R), no edema noted Pedal (L), no edema noted Pedal (R), no edema noted Generalized Neurologic: motor weakness Skin: normal pigmentation, warm/dry KOBE HERNANDEZ Mar 04, 2017 07:23
[2017-03-04 08:00] VITALS: BP 125/74
[2017-03-04] MEDS: Meropenem 1 GM in NS 110 ML IVPB SCH ×2 (08:00→20:33)
[2017-03-04] MEDS: Docusate 100mg/10ml Liq GT SCH ×3 (08:36→17:35)
[2017-03-04] MEDS: Vancomycin 750 MG in D5W 275 ML IVPB SCH ×2 (08:37→20:34)
[2017-03-04] MEDS: Heparin 5000 units/ml inj SUBQ SCH ×2 (08:38→20:35)
--- NOTE | 2017-03-04 09:07 | Pulmonology Progress Note ---
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, 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 Discussed with: nurses, consultants, case hardener Subjective Allergies: Coded Allergies: No Known Allergies (Unverified , 02/27/17) Objective Last 24 Hour Vital Signs Date Time Temp Pulse Resp B/P Pulse Ox O2 Delivery O2 Flow Rate FiO2 03/04/17 07:13 63 16 35 03/04/17 04:35 70 17 35 03/04/17 04:00 74 03/04/17 04:00 35 03/04/17 03:58 99.1 68 16 117/63 98 Mechanical Ventilator 03/04/17 02:31 62 20 35 03/04/17 01:20 67 21 35 03/04/17 00:00 98.4 89 26 133/93 99 Mechanical Ventilator 03/04/17 00:00 88 03/04/17 00:00 35 03/03/17 23:27 62 22 35 03/03/17 21:53 77 20 35 03/03/17 20:10 69 03/03/17 20:00 35 03/03/17 20:00 98.4 77 16 158/84 99 Mechanical Ventilator 03/03/17 19:35 68 27 35 03/03/17 17:10 37 03/03/17 16:41 56 16 35 03/03/17 16:00 35 03/03/17 16:00 96.8 45 16 141/60 99 Mechanical Ventilator 35 03/03/17 14:32 49 16 35 03/03/17 12:20 48 16 35 03/03/17 12:00 45 03/03/17 12:00 98.1 48 16 105/53 98 Mechanical Ventilator 35 03/03/17 12:00 35 03/03/17 11:02 49 16 35 Intake and Output 03/03/17 03/04/17 19:00 07:00 Intake Total 1326.666 ml 1486.666 ml Output Total 900 ml 1200 ml Balance 426.666 ml 286.666 ml Free Water 180 ml IV Total 776.666 ml 1026.666 ml Tube Feeding 370 ml 460 ml Output Urine Total 900 ml 1200 ml # Bowel Movements 2 General Appearance: WD/WN HEENT: normocephalic, atraumatic Respiratory/Chest: chest wall non-tender, lungs clear Cardiovascular: normal peripheral pulses, normal rate Abdomen: normal bowel sounds, soft, non tender Genitourinary: normal external genitalia Extremities: no cyanosis Skin: no rash 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, no motor/sensory deficits Lymphatic: no neck adenopathy Laboratory Tests 03/04/17 03:45: White Blood Count 11.8H, Red Blood Count 3.90L, Hemoglobin 12.7L, Hematocrit 37.0L, Mean Corpuscular Volume 95, Mean Corpuscular Hemoglobin 32.7H, Mean Corpuscular Hemoglobin Concent 34.4, Red Cell Distribution Width 12.7, Platelet Count 172, Mean Platelet Volume 10.5H, Neutrophils (%) (Auto) 71.3, Lymphocytes (%) (Auto) 18.2L, Monocytes (%) (Auto) 7.9, Eosinophils (%) (Auto) 1.9, Basophils (%) (Auto) 0.7, Sodium Level 137, Potassium Level 3.6, Chloride Level 102, Carbon Dioxide Level 23, Anion Gap 12, Blood Urea Nitrogen 11, Creatinine 0.7, Estimat Glomerular Filtration Rate , Glucose Level 116H, Calcium Level 8.4L , Phosphorus Level 1.8L, Magnesium Level 1.9, Total Bilirubin 0.4, Aspartate Amino Transf (AST/SGOT) 53H, Alanine Aminotransferase (ALT/SGPT) 64H, Alkaline Phosphatase 69, Total Protein 5.6L, Albumin 3.0L, Globulin 2.6, Albumin/ Globulin Ratio 1.1 Current Medications Medications (Trade) Dose Ordered Sig/Keivn Route PRN Reason Start Time Stop Time Status Last Admin Dose Admin Acetaminophen (Tylenol) 650 mg Q4H PRN GT Mild Pain/Temp > 100.5 03/03/17 22:45 04/02/17 22:44 Albuterol/ Ipratropium 3 ml 3 ml Q4H PRN HHN Shortness of Breath 03/02/17 13:45 03/07/17 23:59 Dextrose (Dextrose 50%) STAT PRN IV Hypoglycemia 02/27/17 13:45 03/29/17 13:44 Docusate Sodium (Colace) 100 mg THREE TIMES A DAY GT 03/04/17 09:00 04/03/17 08:59 03/04/17 08:36 Heparin Sodium (Porcine) (Heparin 5000 units/ml) 5,000 units EVERY 12 HOURS SUBQ 02/27/17 21:00 03/29/17 20:59 03/04/17 08:38 Lansoprazole (Prevacid) 30 mg DAILY GT 03/01/17 09:00 03/31/17 08:59 03/04/17 08:37 Levothyroxine Sodium (Synthroid) 75 mcg ACBREAKFAST GT 03/02/17 06:30 04/01/17 06:29 03/04/17 05:47 Lorazepam (Ativan 2mg/ml 1ml) 2 mg Q2H PRN IV For Anxiety 02/27/17 13:45 03/06/17 13:44 03/01/17 13:49 Meropenem/Sodium Chloride (Merrem/Sodium Chloride) 110 ml @ 220 mls/hr Q12HR@0800,2000 IVPB 03/03/17 20:00 03/08/17 19:59 03/04/17 08:00 Morphine Sulfate (Morphine Sulfate) 4 mg Q4H PRN IVP Severe Pain (Pain Scale 7-10) 02/27/17 13:45 03/06/17 13:44 Ondansetron HCl (Zofran) 4 mg Q6H PRN IVP Nausea & Vomiting 02/27/17 13:45 03/29/17 13:44 Polyethylene Glycol (Miralax) 17 gm BEDTIME GT 02/28/17 21:00 03/30/17 20:59 03/03/17 20:53 Polyethylene Glycol 17 gm 17 gm DAILYPRN PRN GT Constipation 03/01/17 14:44 03/29/17 13:44 Sodium Chloride (Sodium Chloride 1000ml bag) 1,000 ml @ 50 mls/hr Q20H IV 03/01/17 22:10 03/31/17 22:09 03/03/17 14:35 Vancomycin HCl (Vanco rx to dose) 1 ea DAILY PRN MISC . 02/27/17 20:15 03/29/17 20:14 Vancomycin HCl 750 mg/Dextrose 275 ml @ 183.333 mls/hr Q12HR IVPB 03/03/17 09:00 03/08/17 08:59 03/04/17 08:37 CRISTIAN HURLEY Mar 04, 2017 09:07
[2017-03-04] MEDS ORDERED: Potassium Phosphate 30 MM in Sodium Chloride 550 ML IV ONE (10:30)
[2017-03-04 12:00] VITALS: BP 128/77
--- NOTE | 2017-03-04 14:20 | Infectious Diseases Prog Note ---
Assessment/Plan Problems: (1) Sepsis Assessment & Plan: due to pneumonia and UTI, on vancomycin and meropenem , blood culture is negative (2) Aspiration pneumonia Assessment & Plan: due to serratia marcescens, continue meropenem and vancomycin for 10 days EOT 03/12/17 (3) Acute and chronic respiratory failure Assessment & Plan: due to the above, intubated on mechanical ventilation , monitor ABG, and CXR (4) Chronic respiratory failure Assessment & Plan: S/P Trach, continue trach care , titrate O2 as needed (5) Acute abdominal pain Assessment & Plan: CT abdomen didn't show any abdominal pathology , further management as per primary team (6) UTI (urinary tract infection) Assessment & Plan: with MDR Acinetobacter baumannii , on meropenem for 10 days Subjective ROS Limited/Unobtainable: Yes Allergies: Coded Allergies: No Known Allergies (Unverified , 02/27/17) Subjective he was more awake and alert, communicating by nodding his head, his grand son is at the bedside, afebrile. not on pressors. not federico Objective Vital Signs Last 24 Hour Vital Signs Date Time Temp Pulse Resp B/P Pulse Ox O2 Delivery O2 Flow Rate FiO2 03/04/17 12:41 67 22 35 03/04/17 11:02 62 20 35 03/04/17 09:19 67 20 35 03/04/17 08:00 66 03/04/17 07:13 63 16 35 03/04/17 04:35 70 17 35 03/04/17 04:00 74 03/04/17 04:00 35 03/04/17 03:58 99.1 68 16 117/63 98 Mechanical Ventilator 35 03/04/17 02:31 62 20 35 03/04/17 01:20 67 21 35 03/04/17 00:00 98.4 89 26 133/93 99 Mechanical Ventilator 35 03/04/17 00:00 88 03/04/17 00:00 35 03/03/17 23:27 62 22 35 03/03/17 21:53 77 20 35 03/03/17 20:10 69 03/03/17 20:00 35 03/03/17 20:00 98.4 77 16 158/84 99 Mechanical Ventilator 35 03/03/17 19:35 68 27 35 03/03/17 17:10 37 03/03/17 16:41 56 16 35 03/03/17 16:00 35 03/03/17 16:00 96.8 45 16 141/60 99 Mechanical Ventilator 35 03/03/17 14:32 49 16 35 Height (Feet): 5 Height (Inches): 4.00 Weight (Pounds): 180 General Appearance: WD/WN, no acute distress HEENT: normocephalic, atraumatic, anicteric, mucous membranes moist, supple, status post trach Respiratory/Chest: chest wall non-tender, no respiratory distress, no accessory muscle use, crackles/rales Cardiovascular: normal peripheral pulses, normal rate, regular rhythm, no gallop/murmur, no JVD Abdomen: normal bowel sounds, soft, non tender, no organomegaly, non distended , no mass Extremities: no cyanosis, no clubbing Skin: no rash, no lesions, ulcers Neurologic/Psychiatric: alert Lymphatic: no neck adenopathy Laboratory Tests Test 03/04/17 03:45 White Blood Count 11.8 K/UL (4.8-10.8) H Red Blood Count 3.90 M/UL (4.70-6.10) L Hemoglobin 12.7 G/DL (14.2-18.0) L Hematocrit 37.0 % (42.0-52.0) L Mean Corpuscular Volume 95 FL (80-99) Mean Corpuscular Hemoglobin 32.7 PG (27.0-31.0) H Mean Corpuscular Hemoglobin Concent 34.4 G/DL (32.0-36.0) Red Cell Distribution Width 12.7 % (11.6-14.8) Platelet Count 172 K/UL (150-450) Mean Platelet Volume 10.5 FL (6.5-10.1) H Neutrophils (%) (Auto) 71.3 % (45.0-75.0) Lymphocytes (%) (Auto) 18.2 % (20.0-45.0) L Monocytes (%) (Auto) 7.9 % (1.0-10.0) Eosinophils (%) (Auto) 1.9 % (0.0-3.0) Basophils (%) (Auto) 0.7 % (0.0-2.0) Sodium Level 137 mEQ/L (135-145) Potassium Level 3.6 mEQ/L (3.4-4.9) Chloride Level 102 mEQ/L (98-107) Carbon Dioxide Level 23 mEQ/L (20-30) Anion Gap 12 (5-15) Blood Urea Nitrogen 11 mg/dL (7-23) Creatinine 0.7 mg/dL (0.7-1.2) Estimat Glomerular Filtration Rate mL/min (>60) Glucose Level 116 mg/dL (74-106) H Calcium Level 8.4 mg/dL (8.6-10.2) L Phosphorus Level 1.8 mg/dL (2.5-4.8) L Magnesium Level 1.9 mg/dL (1.7-2.5) Total Bilirubin 0.4 mg/dL (0.0-1.2) Aspartate Amino Transf (AST/SGOT) 53 U/L (5-40) H Alanine Aminotransferase (ALT/SGPT) 64 U/L (3-41) H Alkaline Phosphatase 69 U/L (40-129) Total Protein 5.6 g/dL (6.6-8.7) L Albumin 3.0 g/dL (3.5-5.2) L Globulin 2.6 g/dL Albumin/Globulin Ratio 1.1 (1.0-2.7) Current Medications Medications (Trade) Dose Ordered Sig/Kevin Route PRN Reason Start Time Stop Time Status Last Admin Dose Admin Acetaminophen 650 mg 650 mg Q4H PRN GT Mild Pain/Temp > 100.5 03/03/17 22:45 04/02/17 22:44 Albuterol/ Ipratropium 3 ml 3 ml Q4H PRN HHN Shortness of Breath 03/02/17 13:45 03/07/17 23:59 Dextrose (Dextrose 50%) STAT PRN IV Hypoglycemia 02/27/17 13:45 03/29/17 13:44 Docusate Sodium (Colace) 100 mg THREE TIMES A DAY GT 03/04/17 09:00 04/03/17 08:59 03/04/17 14:00 Heparin Sodium (Porcine) (Heparin 5000 units/ml) 5,000 units EVERY 12 HOURS SUBQ 02/27/17 21:00 03/29/17 20:59 03/04/17 08:38 Lansoprazole (Prevacid) 30 mg DAILY GT 03/01/17 09:00 03/31/17 08:59 03/04/17 08:37 Levothyroxine Sodium (Synthroid) 75 mcg ACBREAKFAST GT 03/02/17 06:30 04/01/17 06:29 03/04/17 05:47 Lorazepam (Ativan 2mg/ml 1ml) 2 mg Q2H PRN IV For Anxiety 02/27/17 13:45 03/06/17 13:44 03/01/17 13:49 Meropenem/Sodium Chloride (Merrem/Sodium Chloride) 110 ml @ 220 mls/hr Q12HR@0800,2000 IVPB 03/03/17 20:00 03/08/17 19:59 03/04/17 08:00 Morphine Sulfate (Morphine Sulfate) 4 mg Q4H PRN IVP Severe Pain (Pain Scale 7-10) 02/27/17 13:45 03/06/17 13:44 Ondansetron HCl (Zofran) 4 mg Q6H PRN IVP Nausea & Vomiting 02/27/17 13:45 03/29/17 13:44 Polyethylene Glycol (Miralax) 17 gm BEDTIME GT 02/28/17 21:00 03/30/17 20:59 03/03/17 20:53 Polyethylene Glycol 17 gm 17 gm DAILYPRN PRN GT Constipation 03/01/17 14:44 03/29/17 13:44 Potassium Phosphate/Sodium Chloride (Potassium Phosphate/NS) 560 ml @ 93.3 mls/hr ONCE ONCE IV 03/04/17 10:30 03/04/17 16:30 03/04/17 10:50 Sodium Chloride (Sodium Chloride 1000ml bag) 1,000 ml @ 50 mls/hr Q20H IV 03/01/17 22:10 03/31/17 22:09 03/04/17 10:50 Vancomycin HCl (Vanco rx to dose) 1 ea DAILY PRN MISC . 02/27/17 20:15 03/29/17 20:14 Vancomycin HCl 750 mg/Dextrose 275 ml @ 183.333 mls/hr Q12HR IVPB 03/03/17 09:00 03/08/17 08:59 03/04/17 08:37 Papito Don M.D. Mar 04, 2017 14:20
[2017-03-04 16:00] VITALS: BP 138/65
--- NOTE | 2017-03-04 19:30 | Progress Note ---
DATE: 03/04/2017 CARDIOLOGY PROGRESS NOTE SUBJECTIVE: The patient is on ventilator support, awake and alert, no respiratory distress. The patient has sinus bradycardia, sinus rhythm. Yesterday there was some asymptomatic episodes of junctional bradycardia. OBJECTIVE: VITAL SIGNS: Heart rate 37 to 74, respiratory rate 16 to 20. He is afebrile, T-max 99.1. LUNGS: Coarse breath sounds. Few rhonchi. HEART: Regular rhythm and rate. Normal S1 and S2. ABDOMEN: Soft. EXTREMITIES: No edema. LABORATORY DATA: Serratia growing out of the sputum. Acinetobacter growing out of the urine. White count 11.8, hemoglobin 12.7. Potassium 3.6, BUN 11, creatinine 0.7, phosphorus 1.8. Albumin 3. Magnesium is 1.9. IMPRESSION: 1. Sinus node disease with bradyarrhythmias, asymptomatic. 2. Ventilator-dependent respiratory failure. 3. Hypokalemia, corrected. 4. Hypophosphatemia. 5. Gram-negative urinary tract infection 6. Gram-negative pneumonia. PLAN: 1. Antibiotics per Infectious Disease law firm consultant. 2. Phosphorus replacement. 3. Ventilator support. 4. No urgent indication for pacemaker. Vikram Mari M.D. DR: Sylvia JOB#: [id number] CC:
[2017-03-04 20:00] VITALS: BP 144/59
[2017-03-04] MEDS: Miralax 17gm pkt GT SCH (20:34)
[2017-03-05] VITALS (7 sets, daily range): BP systolic 104–143; BP diastolic 50–74
[2017-03-05 05:31] LABS: BASOPHILS % (AUTO) 0.6 % (0.0-2.0); EOSINOPHILS % (AUTO) 1.8 % (0.0-3.0); LYMPHOCYTES % (AUTO) 22.3 % (20.0-45.0); MEAN CORPUSCULAR HEMOGLOBIN 31.8 PG (27.0-31.0); MEAN CORPUSCULAR HGB CONC 33.2 G/DL (32.0-36.0); MEAN CORPUSCULAR VOLUME 96 FL (80-99); MEAN PLATELET VOLUME 10.5 FL (6.5-10.1); NEUTROPHILS % (AUTO) 65.3 % (45.0-75.0); PLATELET COUNT 150 K/UL (150-450); RED BLOOD COUNT 3.72 M/UL (4.70-6.10); RED CELL DISTRIBUTION WIDTH 12.5 % (11.6-14.8); WHITE BLOOD COUNT 10.5 K/UL (4.8-10.8)
[2017-03-05 06:02] LABS: ANION GAP 15 (5-15); CALCIUM 8.4 mg/dL (8.6-10.2); CARBON DIOXIDE 23 mEQ/L (20-30); CHLORIDE 98 mEQ/L (98-107); CREATININE 0.6 mg/dL (0.7-1.2); HEMOLYSIS 11; POTASSIUM 3.9 mEQ/L (3.4-4.9); SODIUM 136 mEQ/L (135-145)
[2017-03-05] MEDS: Meropenem 1 GM in NS 110 ML IVPB SCH ×2 (07:55→20:06)
[2017-03-05] MEDS: Vancomycin 750 MG in D5W 275 ML IVPB SCH ×2 (08:26→21:20)
[2017-03-05] MEDS: Docusate 100mg/10ml Liq GT SCH ×3 (08:26→17:33)
[2017-03-05] MEDS: Heparin 5000 units/ml inj SUBQ SCH ×2 (08:27→21:21)
--- NOTE | 2017-03-05 12:04 | Pulmonology Progress Note ---
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 with: nurses, case filler Subjective ROS Limited/Unobtainable: No Constitutional: Reports: no symptoms HEENT: Repors: no symptoms Respiratory: Reports: no symptoms Cardiovascular: Reports: no symptoms Allergies: Coded Allergies: No Known Allergies (Unverified , 02/27/17) Objective Last 24 Hour Vital Signs Date Time Temp Pulse Resp B/P Pulse Ox O2 Delivery O2 Flow Rate FiO2 03/05/17 11:19 65 16 35 03/05/17 09:26 48 16 35 03/05/17 08:00 45 03/05/17 08:00 35 03/05/17 08:00 98.4 52 16 143/55 99 Mechanical Ventilator 35 03/05/17 07:26 50 16 35 03/05/17 05:00 67 16 35 03/05/17 04:00 99.4 57 17 104/50 97 Mechanical Ventilator 35 03/05/17 04:00 35 03/05/17 04:00 57 03/05/17 03:03 53 16 35 03/05/17 01:12 63 16 35 03/05/17 00:00 64 03/05/17 00:00 35 03/05/17 00:00 99.8 58 16 124/70 96 Mechanical Ventilator 35 03/04/17 23:20 59 17 35 03/04/17 21:13 63 17 35 03/04/17 20:00 68 03/04/17 20:00 99.1 58 16 144/59 97 Mechanical Ventilator 35 03/04/17 20:00 35 03/04/17 19:00 57 19 35 03/04/17 17:00 58 19 35 03/04/17 16:00 35 03/04/17 16:00 97.9 58 16 138/65 97 Mechanical Ventilator 35 03/04/17 16:00 60 03/04/17 15:01 62 22 35 03/04/17 12:41 67 22 35 Intake and Output 03/04/17 03/05/17 19:00 07:00 Intake Total 2099.766 ml 1745 ml Output Total 700 ml 500 ml Balance 1399.766 ml 1245 ml Free Water 100 ml 100 ml IV Total 1339.766 ml 925 ml Tube Feeding 660 ml 720 ml Output Urine Total 700 ml 500 ml General Appearance: WD/WN HEENT: normocephalic, atraumatic Respiratory/Chest: chest wall non-tender, lungs clear Cardiovascular: normal peripheral pulses, normal rate Abdomen: normal bowel sounds, soft, non tender Genitourinary: normal external genitalia Extremities: no cyanosis Skin: no lesions 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, abnormal gait, normal mood/ affect Laboratory Tests 03/05/17 03:45: White Blood Count 10.5, Red Blood Count 3.72L, Hemoglobin 11.9L, Hematocrit 35.7L, Mean Corpuscular Volume 96, Mean Corpuscular Hemoglobin 31.8H, Mean Corpuscular Hemoglobin Concent 33.2, Red Cell Distribution Width 12.5, Platelet Count 150, Mean Platelet Volume 10.5H, Neutrophils (%) (Auto) 65.3, Lymphocytes (%) (Auto) 22.3, Monocytes (%) (Auto) 10.0, Eosinophils (%) (Auto) 1.8, Basophils (%) (Auto) 0.6, Sodium Level 136, Potassium Level 3.9, Chloride Level 98, Carbon Dioxide Level 23, Anion Gap 15, Blood Urea Nitrogen 11, Creatinine 0.6L, Estimat Glomerular Filtration Rate , Glucose Level 127H, Calcium Level 8.4L, Iron Level 25L, Total Iron Binding Capacity 217L, Percent Iron Saturation 12L, Unsaturated Iron Binding 192, Carcinoembryonic Antigen 5.2H Current Medications Medications (Trade) Dose Ordered Sig/Kevin Route PRN Reason Start Time Stop Time Status Last Admin Dose Admin Acetaminophen (Tylenol) 650 mg Q4H PRN GT Mild Pain/Temp > 100.5 03/03/17 22:45 04/02/17 22:44 Albuterol/ Ipratropium 3 ml 3 ml Q4H PRN HHN Shortness of Breath 03/02/17 13:45 03/07/17 23:59 Dextrose (Dextrose 50%) STAT PRN IV Hypoglycemia 02/27/17 13:45 03/29/17 13:44 Docusate Sodium (Colace) 100 mg THREE TIMES A DAY GT 03/04/17 09:00 04/03/17 08:59 03/05/17 08:26 Heparin Sodium (Porcine) (Heparin 5000 units/ml) 5,000 units EVERY 12 HOURS SUBQ 02/27/17 21:00 03/29/17 20:59 03/05/17 08:27 Lansoprazole (Prevacid) 30 mg DAILY GT 03/01/17 09:00 03/31/17 08:59 03/05/17 08:26 Levothyroxine Sodium (Synthroid) 75 mcg ACBREAKFAST GT 03/02/17 06:30 04/01/17 06:29 03/05/17 06:24 Lorazepam (Ativan 2mg/ml 1ml) 2 mg Q2H PRN IV For Anxiety 02/27/17 13:45 03/06/17 13:44 03/01/17 13:49 Meropenem/Sodium Chloride (Merrem/Sodium Chloride) 110 ml @ 220 mls/hr Q12HR@0800,2000 IVPB 03/03/17 20:00 03/08/17 19:59 03/05/17 07:55 Morphine Sulfate (Morphine Sulfate) 4 mg Q4H PRN IVP Severe Pain (Pain Scale 7-10) 02/27/17 13:45 03/06/17 13:44 Ondansetron HCl (Zofran) 4 mg Q6H PRN IVP Nausea & Vomiting 02/27/17 13:45 03/29/17 13:44 Polyethylene Glycol (Miralax) 17 gm BEDTIME GT 02/28/17 21:00 03/30/17 20:59 03/04/17 20:34 Polyethylene Glycol 17 gm 17 gm DAILYPRN PRN GT Constipation 03/01/17 14:44 03/29/17 13:44 Sodium Chloride (Sodium Chloride 1000ml bag) 1,000 ml @ 50 mls/hr Q20H IV 03/01/17 22:10 03/31/17 22:09 03/05/17 06:24 Vancomycin HCl (Vanco rx to dose) 1 ea DAILY PRN MISC . 02/27/17 20:15 03/29/17 20:14 Vancomycin HCl 750 mg/Dextrose 275 ml @ 183.333 mls/hr Q12HR IVPB 03/03/17 09:00 03/08/17 08:59 03/05/17 08:26 CRISTIAN HURLEY Mar 05, 2017 12:04
--- NOTE | 2017-03-05 14:33 | GI Progress Note ---
Assessment/Plan Problems: (1) Hypoalbuminemia ICD Codes: E88.09 - Other disorders of plasma-protein metabolism, not elsewhere classified SNOMED: 381012938 (2) Constipation ICD Codes: K59.00 - Constipation, unspecified SNOMED: 91149443 (3) Acute abdominal pain ICD Codes: R10.9 - Unspecified abdominal pain SNOMED: 169815447 Status: stable, unchanged Status Narrative Discussed with Dr. Medrano. Assessment/Plan supportive care GTFs per dietary >> Jevity 1.2 @60ml bowel regime >> colace + miralax monitor H&H, transfuse prn check stool ob iron deficient >> venofer prevacid GT fu labs Subjective Subjective limited Objective Last 24 Hour Vital Signs Date Time Temp Pulse Resp B/P Pulse Ox O2 Delivery O2 Flow Rate FiO2 03/05/17 13:28 56 16 35 03/05/17 12:00 35 03/05/17 12:00 99.0 49 16 137/62 98 Mechanical Ventilator 35 03/05/17 12:00 49 03/05/17 11:19 65 16 35 03/05/17 09:26 48 16 35 03/05/17 08:00 45 03/05/17 08:00 35 03/05/17 08:00 98.4 52 16 143/55 99 Mechanical Ventilator 35 03/05/17 07:26 50 16 35 03/05/17 05:00 67 16 35 03/05/17 04:00 99.4 57 17 104/50 97 Mechanical Ventilator 35 03/05/17 04:00 35 03/05/17 04:00 57 03/05/17 03:03 53 16 35 03/05/17 01:12 63 16 35 03/05/17 00:00 64 03/05/17 00:00 35 03/05/17 00:00 99.8 58 16 124/70 96 Mechanical Ventilator 35 03/04/17 23:20 59 17 35 03/04/17 21:13 63 17 35 03/04/17 20:00 68 03/04/17 20:00 99.1 58 16 144/59 97 Mechanical Ventilator 35 03/04/17 20:00 35 03/04/17 19:00 57 19 35 03/04/17 17:00 58 19 35 03/04/17 16:00 35 03/04/17 16:00 97.9 58 16 138/65 97 Mechanical Ventilator 35 03/04/17 16:00 60 03/04/17 15:01 62 22 35 Intake and Output 03/04/17 03/05/17 19:00 07:00 Intake Total 2099.766 ml 1745 ml Output Total 700 ml 500 ml Balance 1399.766 ml 1245 ml Free Water 100 ml 100 ml IV Total 1339.766 ml 925 ml Tube Feeding 660 ml 720 ml Output Urine Total 700 ml 500 ml Laboratory Tests Test 03/05/17 03:45 White Blood Count 10.5 K/UL (4.8-10.8) Red Blood Count 3.72 M/UL (4.70-6.10) L Hemoglobin 11.9 G/DL (14.2-18.0) L Hematocrit 35.7 % (42.0-52.0) L Mean Corpuscular Volume 96 FL (80-99) Mean Corpuscular Hemoglobin 31.8 PG (27.0-31.0) H Mean Corpuscular Hemoglobin Concent 33.2 G/DL (32.0-36.0) Red Cell Distribution Width 12.5 % (11.6-14.8) Platelet Count 150 K/UL (150-450) Mean Platelet Volume 10.5 FL (6.5-10.1) H Neutrophils (%) (Auto) 65.3 % (45.0-75.0) Lymphocytes (%) (Auto) 22.3 % (20.0-45.0) Monocytes (%) (Auto) 10.0 % (1.0-10.0) Eosinophils (%) (Auto) 1.8 % (0.0-3.0) Basophils (%) (Auto) 0.6 % (0.0-2.0) Sodium Level 136 mEQ/L (135-145) Potassium Level 3.9 mEQ/L (3.4-4.9) Chloride Level 98 mEQ/L (98-107) Carbon Dioxide Level 23 mEQ/L (20-30) Anion Gap 15 (5-15) Blood Urea Nitrogen 11 mg/dL (7-23) Creatinine 0.6 mg/dL (0.7-1.2) L Estimat Glomerular Filtration Rate mL/min (>60) Glucose Level 127 mg/dL (74-106) H Calcium Level 8.4 mg/dL (8.6-10.2) L Iron Level 25 ug/dL (59-158) L Total Iron Binding Capacity 217 ug/dL (250-400) L Percent Iron Saturation 12 % (15-50) L Unsaturated Iron Binding 192 ug/dL (112-346) Carcinoembryonic Antigen 5.2 ng/mL H Height (Feet): 5 Height (Inches): 4.00 Weight (Pounds): 180 General Appearance: no apparent distress Cardiovascular: normal rate Respiratory/Chest: normal breath sounds, no respiratory distress, other - mech vent Abdominal Exam: GT site - c/d/i Lucero Thakkar N.P. Mar 05, 2017 14:33
--- NOTE | 2017-03-05 14:53 | General Progress Note ---
Assessment/Plan Problem List: (1) Chronic respiratory failure ICD Codes: J96.10 - Chronic respiratory failure, unspecified whether with hypoxia or hypercapnia SNOMED: 72877048 (2) Aspiration pneumonia ICD Codes: J69.0 - Pneumonitis due to inhalation of food and vomit SNOMED: 015813283 (3) Sepsis ICD Codes: A41.9 - Sepsis, unspecified organism SNOMED: 22854281 (4) Acute and chronic respiratory failure ICD Codes: J96.20 - Acute and chronic respiratory failure, unspecified whether with hypoxia or hypercapnia SNOMED: 77111890, 20649790 (5) Bradycardia ICD Codes: R00.1 - Bradycardia, unspecified SNOMED: 85945265 (6) Acute abdominal pain ICD Codes: R10.9 - Unspecified abdominal pain SNOMED: 214942067 Status: stable, progressing, tolerating diet Assessment/Plan vent abx gi eval ot pt diet cbc bmp am dia la eval vs dc plan snf Subjective Constitutional: Reports: weakness Allergies: Coded Allergies: No Known Allergies (Unverified , 02/27/17) All Systems: reviewed and negative except above Subjective trach vent altered Objective Last 24 Hour Vital Signs Date Time Temp Pulse Resp B/P Pulse Ox O2 Delivery O2 Flow Rate FiO2 03/05/17 13:28 56 16 35 03/05/17 12:00 35 03/05/17 12:00 99.0 49 16 137/62 98 Mechanical Ventilator 35 03/05/17 12:00 49 03/05/17 11:19 65 16 35 03/05/17 09:26 48 16 35 03/05/17 08:00 45 03/05/17 08:00 35 03/05/17 08:00 98.4 52 16 143/55 99 Mechanical Ventilator 35 03/05/17 07:26 50 16 35 03/05/17 05:00 67 16 35 03/05/17 04:00 99.4 57 17 104/50 97 Mechanical Ventilator 35 03/05/17 04:00 35 03/05/17 04:00 57 03/05/17 03:03 53 16 35 03/05/17 01:12 63 16 35 03/05/17 00:00 64 03/05/17 00:00 35 03/05/17 00:00 99.8 58 16 124/70 96 Mechanical Ventilator 35 03/04/17 23:20 59 17 35 03/04/17 21:13 63 17 35 03/04/17 20:00 68 03/04/17 20:00 99.1 58 16 144/59 97 Mechanical Ventilator 35 03/04/17 20:00 35 03/04/17 19:00 57 19 35 03/04/17 17:00 58 19 35 03/04/17 16:00 35 03/04/17 16:00 97.9 58 16 138/65 97 Mechanical Ventilator 35 03/04/17 16:00 60 03/04/17 15:01 62 22 35 Intake and Output 03/04/17 03/05/17 19:00 07:00 Intake Total 2099.766 ml 1745 ml Output Total 700 ml 500 ml Balance 1399.766 ml 1245 ml Free Water 100 ml 100 ml IV Total 1339.766 ml 925 ml Tube Feeding 660 ml 720 ml Output Urine Total 700 ml 500 ml Laboratory Tests 03/05/17 03:45: White Blood Count 10.5, Red Blood Count 3.72L, Hemoglobin 11.9L, Hematocrit 35.7L, Mean Corpuscular Volume 96, Mean Corpuscular Hemoglobin 31.8H, Mean Corpuscular Hemoglobin Concent 33.2, Red Cell Distribution Width 12.5, Platelet Count 150, Mean Platelet Volume 10.5H, Neutrophils (%) (Auto) 65.3, Lymphocytes (%) (Auto) 22.3, Monocytes (%) (Auto) 10.0, Eosinophils (%) (Auto) 1.8, Basophils (%) (Auto) 0.6, Sodium Level 136, Potassium Level 3.9, Chloride Level 98, Carbon Dioxide Level 23, Anion Gap 15, Blood Urea Nitrogen 11, Creatinine 0.6L, Estimat Glomerular Filtration Rate , Glucose Level 127H, Calcium Level 8.4L, Iron Level 25L, Total Iron Binding Capacity 217L, Percent Iron Saturation 12L, Unsaturated Iron Binding 192, Carcinoembryonic Antigen 5.2H Height (Feet): 5 Height (Inches): 4.00 Weight (Pounds): 180 General Appearance: lethargic EENT: normal ENT inspection Neck: normal alignment Cardiovascular: normal peripheral pulses, normal rate, regular rhythm Respiratory/Chest: chest wall non-tender, lungs clear, normal breath sounds Abdomen: normal bowel sounds, non tender, soft Extremities: normal inspection Edema: no edema noted Arm (L), no edema noted Arm (R), no edema noted Leg (L), no edema noted Leg (R), no edema noted Pedal (L), no edema noted Pedal (R), no edema noted Generalized Neurologic: motor weakness Skin: normal pigmentation, warm/dry KOBE HERNANDEZ Mar 05, 2017 14:53
[2017-03-05] MEDS ORDERED: Iron Sucrose 100 MG in NS 55 ML IVPB ONE (16:00)
--- NOTE | 2017-03-05 16:24 | Infectious Diseases Prog Note ---
Assessment/Plan Problems: (1) Sepsis Assessment & Plan: due to pneumonia and UTI, on vancomycin and meropenem , blood culture is negative (2) Aspiration pneumonia Assessment & Plan: due to serratia marcescens, continue meropenem and vancomycin for 10 days EOT 03/12/17 (3) Acute and chronic respiratory failure Assessment & Plan: due to the above, improved, S/P mechanical ventilation , monitor CXR (4) Chronic respiratory failure Assessment & Plan: S/P Trach, continue trach care , titrate O2 as needed (5) Acute abdominal pain Assessment & Plan: CT abdomen didn't show any abdominal pathology , further management as per primary team (6) UTI (urinary tract infection) Assessment & Plan: with MDR Acinetobacter baumannii , on meropenem for 10 days Subjective ROS Limited/Unobtainable: Yes Allergies: Coded Allergies: No Known Allergies (Unverified , 02/27/17) Subjective he was awake and alert, communicating by nodding his head, afebrile. not on pressors. Objective Vital Signs Last 24 Hour Vital Signs Date Time Temp Pulse Resp B/P Pulse Ox O2 Delivery O2 Flow Rate FiO2 03/05/17 16:00 35 03/05/17 15:18 54 16 35 03/05/17 13:28 56 16 35 03/05/17 12:00 35 03/05/17 12:00 99.0 49 16 137/62 98 Mechanical Ventilator 35 03/05/17 12:00 49 03/05/17 11:19 65 16 35 03/05/17 09:26 48 16 35 03/05/17 08:00 45 03/05/17 08:00 35 03/05/17 08:00 98.4 52 16 143/55 99 Mechanical Ventilator 35 03/05/17 07:26 50 16 35 03/05/17 05:00 67 16 35 03/05/17 04:00 99.4 57 17 104/50 97 Mechanical Ventilator 35 03/05/17 04:00 35 03/05/17 04:00 57 03/05/17 03:03 53 16 35 03/05/17 01:12 63 16 35 03/05/17 00:00 64 03/05/17 00:00 35 03/05/17 00:00 99.8 58 16 124/70 96 Mechanical Ventilator 35 03/04/17 23:20 59 17 35 03/04/17 21:13 63 17 35 03/04/17 20:00 68 03/04/17 20:00 99.1 58 16 144/59 97 Mechanical Ventilator 35 03/04/17 20:00 35 03/04/17 19:00 57 19 35 03/04/17 17:00 58 19 35 Height (Feet): 5 Height (Inches): 4.00 Weight (Pounds): 180 General Appearance: WD/WN, no acute distress HEENT: normocephalic, atraumatic, anicteric, mucous membranes moist, supple, no JVD, status post trach Respiratory/Chest: chest wall non-tender, normal breath sounds, no respiratory distress, no accessory muscle use, decreased breath sounds Cardiovascular: normal peripheral pulses, normal rate, regular rhythm, no gallop/murmur, no JVD Abdomen: normal bowel sounds, soft, non tender, no organomegaly, non distended , no mass Extremities: no cyanosis, no clubbing Skin: no rash, no lesions, ulcers Lymphatic: no neck adenopathy, no groin adenopathy Laboratory Tests Test 03/05/17 03:45 03/05/17 15:00 White Blood Count 10.5 K/UL (4.8-10.8) Red Blood Count 3.72 M/UL (4.70-6.10) L Hemoglobin 11.9 G/DL (14.2-18.0) L Hematocrit 35.7 % (42.0-52.0) L Mean Corpuscular Volume 96 FL (80-99) Mean Corpuscular Hemoglobin 31.8 PG (27.0-31.0) H Mean Corpuscular Hemoglobin Concent 33.2 G/DL (32.0-36.0) Red Cell Distribution Width 12.5 % (11.6-14.8) Platelet Count 150 K/UL (150-450) Mean Platelet Volume 10.5 FL (6.5-10.1) H Neutrophils (%) (Auto) 65.3 % (45.0-75.0) Lymphocytes (%) (Auto) 22.3 % (20.0-45.0) Monocytes (%) (Auto) 10.0 % (1.0-10.0) Eosinophils (%) (Auto) 1.8 % (0.0-3.0) Basophils (%) (Auto) 0.6 % (0.0-2.0) Sodium Level 136 mEQ/L (135-145) Potassium Level 3.9 mEQ/L (3.4-4.9) Chloride Level 98 mEQ/L (98-107) Carbon Dioxide Level 23 mEQ/L (20-30) Anion Gap 15 (5-15) Blood Urea Nitrogen 11 mg/dL (7-23) Creatinine 0.6 mg/dL (0.7-1.2) L Estimat Glomerular Filtration Rate mL/min (>60) Glucose Level 127 mg/dL (74-106) H Calcium Level 8.4 mg/dL (8.6-10.2) L Iron Level 25 ug/dL (59-158) L Total Iron Binding Capacity 217 ug/dL (250-400) L Percent Iron Saturation 12 % (15-50) L Unsaturated Iron Binding 192 ug/dL (112-346) Carcinoembryonic Antigen 5.2 ng/mL H Stool Occult Blood Pending Current Medications Medications (Trade) Dose Ordered Sig/Kevin Route PRN Reason Start Time Stop Time Status Last Admin Dose Admin Acetaminophen (Tylenol) 650 mg Q4H PRN GT Mild Pain/Temp > 100.5 03/03/17 22:45 04/02/17 22:44 Albuterol/ Ipratropium 3 ml 3 ml Q4H PRN HHN Shortness of Breath 03/02/17 13:45 03/07/17 23:59 Dextrose (Dextrose 50%) STAT PRN IV Hypoglycemia 02/27/17 13:45 03/29/17 13:44 Docusate Sodium (Colace) 100 mg THREE TIMES A DAY GT 03/04/17 09:00 04/03/17 08:59 03/05/17 13:10 Heparin Sodium (Porcine) (Heparin 5000 units/ml) 5,000 units EVERY 12 HOURS SUBQ 02/27/17 21:00 03/29/17 20:59 03/05/17 08:27 Lansoprazole (Prevacid) 30 mg DAILY GT 03/01/17 09:00 03/31/17 08:59 03/05/17 08:26 Levothyroxine Sodium (Synthroid) 75 mcg ACBREAKFAST GT 03/02/17 06:30 04/01/17 06:29 03/05/17 06:24 Lorazepam (Ativan 2mg/ml 1ml) 2 mg Q2H PRN IV For Anxiety 02/27/17 13:45 03/06/17 13:44 03/01/17 13:49 Meropenem/Sodium Chloride (Merrem/Sodium Chloride) 110 ml @ 220 mls/hr Q12HR@0800,2000 IVPB 03/03/17 20:00 03/08/17 19:59 03/05/17 07:55 Morphine Sulfate (Morphine Sulfate) 4 mg Q4H PRN IVP Severe Pain (Pain Scale 7-10) 02/27/17 13:45 03/06/17 13:44 Ondansetron HCl (Zofran) 4 mg Q6H PRN IVP Nausea & Vomiting 02/27/17 13:45 03/29/17 13:44 Polyethylene Glycol (Miralax) 17 gm BEDTIME GT 02/28/17 21:00 03/30/17 20:59 03/04/17 20:34 Polyethylene Glycol 17 gm 17 gm DAILYPRN PRN GT Constipation 03/01/17 14:44 03/29/17 13:44 Sodium Chloride (Sodium Chloride 1000ml bag) 1,000 ml @ 50 mls/hr Q20H IV 03/01/17 22:10 03/31/17 22:09 03/05/17 06:24 Vancomycin HCl (Vanco rx to dose) 1 ea DAILY PRN MISC . 02/27/17 20:15 03/29/17 20:14 Vancomycin HCl 750 mg/Dextrose 275 ml @ 183.333 mls/hr Q12HR IVPB 03/03/17 09:00 03/08/17 08:59 03/05/17 08:26 Papito Don M.D. Mar 05, 2017 16:24
[2017-03-05] MEDS: Miralax 17gm pkt GT SCH (21:20)
[2017-03-05] MEDS ORDERED: Tubing IV Secondary IV ONE (21:20)
--- NOTE | 2017-03-05 22:30 | Progress Note ---
DATE: 03/05/2017 CARDIOLOGY PROGRESS NOTE SUBJECTIVE: The patient remains on ventilator support via tracheostomy. He remains awake, alert and interactive. Monitored rhythm, sinus bradycardia, sinus arrhythmias, and rare episodes of junctional bradycardia, all asymptomatic. OBJECTIVE: VITAL SIGNS: Blood pressure 143/55, pulse 52, respiratory rate 16, and afebrile. NECK: Supple. LUNGS: Coarse breath sounds. CARDIAC: Regular. Slow S1 and S2. No new murmur. ABDOMEN: Soft. G-tube intact. No edema. LABORATORY AND DIAGNOSTIC DATA: White count 10.5 and hemoglobin is 11.9. Potassium 3.9, BUN 11, and creatinine 0.6. IMPRESSION: 1. Sepsis due to pneumonia and urinary tract infection. 2. Healthcare-acquired and aspiration pneumonia. 3. Ventilator-dependent respiratory failure. 4. Sinus node disease with bradyarrhythmias. 5. Hypertensive heart disease. No emergent indication for pacemaker. PLAN: 1. Ventilator support. 2. Antimicrobials. 3. Respiratory hygiene. 4. Avoid all agents with negative chronotropic potential. 5. EP consultation is pending for elective outpatient pacemaker in the future if patient performance status improves. Vikram Mari M.D. DR: DILLON JOB#: [id number] CC:
[2017-03-06 04:00] VITALS: BP 126/62
[2017-03-06 05:11] LABS: BASOPHILS % (AUTO) 1.2 % (0.0-2.0); EOSINOPHILS % (AUTO) 4.2 % (0.0-3.0); LYMPHOCYTES % (AUTO) 22.9 % (20.0-45.0); MEAN CORPUSCULAR HEMOGLOBIN 31.7 PG (27.0-31.0); MEAN CORPUSCULAR HGB CONC 33.1 G/DL (32.0-36.0); MEAN CORPUSCULAR VOLUME 96 FL (80-99); MEAN PLATELET VOLUME 11.8 FL (6.5-10.1); MONOCYTES % (AUTO) 9.5 % (1.0-10.0); NEUTROPHILS % (AUTO) 62.2 % (45.0-75.0); PLATELET COUNT 159 K/UL (150-450); RED BLOOD COUNT 3.75 M/UL (4.70-6.10); RED CELL DISTRIBUTION WIDTH 12.9 % (11.6-14.8); WHITE BLOOD COUNT 8.7 K/UL (4.8-10.8)
[2017-03-06 05:28] LABS: ALANINE AMINOTRANSFERASE 42 U/L (3-41); ALBUMIN/GLOBULIN RATIO 0.8 (1.0-2.7); ANION GAP 13 (5-15); ASPARTATE AMINO TRANSFERASE 27 U/L (5-40); CALCIUM 8.3 mg/dL (8.6-10.2); CARBON DIOXIDE 24 mEQ/L (20-30); CHLORIDE 100 mEQ/L (98-107); CREATININE 0.5 mg/dL (0.7-1.2); HEMOLYSIS 8; MAGNESIUM 1.9 mg/dL (1.7-2.5); PHOSPHORUS 1.9 mg/dL (2.5-4.8); POTASSIUM 3.7 mEQ/L (3.4-4.9); SODIUM 137 mEQ/L (135-145); TOTAL PROTEIN 5.6 g/dL (6.6-8.7)
[2017-03-06 08:00] VITALS: BP 138/69
[2017-03-06] MEDS: Meropenem 1 GM in NS 110 ML IVPB SCH ×2 (08:09→20:00)
[2017-03-06] MEDS: Vancomycin 750 MG in D5W 275 ML IVPB SCH ×2 (08:52→20:34)
[2017-03-06] MEDS: Docusate 100mg/10ml Liq GT SCH ×3 (09:22→17:31)
[2017-03-06] MEDS: Heparin 5000 units/ml inj SUBQ SCH ×2 (09:25→20:36)
[2017-03-06] MEDS ORDERED: Potassium Phosphate 30 MM in NS 275 ML IV ONE (11:00)
--- NOTE | 2017-03-06 11:33 | GI Progress Note ---
Assessment/Plan Problems: (1) Hypoalbuminemia ICD Codes: E88.09 - Other disorders of plasma-protein metabolism, not elsewhere classified SNOMED: 802111959 (2) Constipation ICD Codes: K59.00 - Constipation, unspecified SNOMED: 95561105 (3) Acute abdominal pain ICD Codes: R10.9 - Unspecified abdominal pain SNOMED: 506980395 Status: stable Status Narrative Discussed with Dr. Medrano. Assessment/Plan supportive care GTFs per dietary >> Jevity 1.2 @60ml bowel regime >> colace + miralax monitor H&H, transfuse prn stool ob pending iron deficient >> venofer prevacid GT fu labs The patient was seen and examined at bedside and all new and available data was reviewed in the patients chart. I agree with the above findings, impression and plan. (Patient seen earlier today. Signature stamp does not reflect patient encounter time.). -Redd Medrano MD Subjective Subjective limited Objective Last 24 Hour Vital Signs Date Time Temp Pulse Resp B/P Pulse Ox O2 Delivery O2 Flow Rate FiO2 03/06/17 10:42 46 16 35 03/06/17 08:46 46 16 35 03/06/17 08:00 35 03/06/17 08:00 54 03/06/17 08:00 98.2 45 16 138/69 99 Mechanical Ventilator 03/06/17 07:01 44 16 35 03/06/17 05:19 46 16 35 03/06/17 04:00 98.5 50 16 126/62 98 Mechanical Ventilator 03/06/17 04:00 35 03/06/17 04:00 53 03/06/17 03:12 49 16 35 03/06/17 00:47 48 16 35 03/06/17 00:00 35 03/06/17 00:00 54 03/05/17 23:54 99.4 44 16 127/57 98 Mechanical Ventilator 03/05/17 23:29 47 16 35 03/05/17 21:15 51 16 35 03/05/17 20:22 50 16 35 03/05/17 20:00 43 03/05/17 20:00 35 03/05/17 20:00 97.1 46 16 117/53 97 Mechanical Ventilator 03/05/17 16:54 47 16 35 03/05/17 16:00 99.0 63 16 139/74 98 Mechanical Ventilator 35 03/05/17 16:00 35 03/05/17 16:00 57 03/05/17 15:18 54 16 35 03/05/17 13:28 56 16 35 03/05/17 12:00 35 03/05/17 12:00 99.0 49 16 137/62 98 Mechanical Ventilator 35 03/05/17 12:00 49 Intake and Output 03/05/17 03/06/17 19:00 07:00 Intake Total 2196.666 ml 1735.000 ml Output Total 600 ml 700 ml Balance 1596.666 ml 1035.000 ml Free Water 100 ml 50 ml IV Total 1376.666 ml 985.000 ml Tube Feeding 720 ml 600 ml Other 100 ml Output Urine Total 600 ml 700 ml # Bowel Movements 1 2 Laboratory Tests Test 03/05/17 15:00 03/06/17 03:15 Stool Occult Blood Pending White Blood Count 8.7 K/UL (4.8-10.8) Red Blood Count 3.75 M/UL (4.70-6.10) L Hemoglobin 11.9 G/DL (14.2-18.0) L Hematocrit 35.9 % (42.0-52.0) L Mean Corpuscular Volume 96 FL (80-99) Mean Corpuscular Hemoglobin 31.7 PG (27.0-31.0) H Mean Corpuscular Hemoglobin Concent 33.1 G/DL (32.0-36.0) Red Cell Distribution Width 12.9 % (11.6-14.8) Platelet Count 159 K/UL (150-450) Mean Platelet Volume 11.8 FL (6.5-10.1) H Neutrophils (%) (Auto) 62.2 % (45.0-75.0) Lymphocytes (%) (Auto) 22.9 % (20.0-45.0) Monocytes (%) (Auto) 9.5 % (1.0-10.0) Eosinophils (%) (Auto) 4.2 % (0.0-3.0) H Basophils (%) (Auto) 1.2 % (0.0-2.0) Sodium Level 137 mEQ/L (135-145) Potassium Level 3.7 mEQ/L (3.4-4.9) Chloride Level 100 mEQ/L (98-107) Carbon Dioxide Level 24 mEQ/L (20-30) Anion Gap 13 (5-15) Blood Urea Nitrogen 12 mg/dL (7-23) Creatinine 0.5 mg/dL (0.7-1.2) L Estimat Glomerular Filtration Rate mL/min (>60) Glucose Level 148 mg/dL (74-106) H Calcium Level 8.3 mg/dL (8.6-10.2) L Phosphorus Level 1.9 mg/dL (2.5-4.8) L Magnesium Level 1.9 mg/dL (1.7-2.5) Total Bilirubin 0.5 mg/dL (0.0-1.2) Aspartate Amino Transf (AST/SGOT) 27 U/L (5-40) Alanine Aminotransferase (ALT/SGPT) 42 U/L (3-41) H Alkaline Phosphatase 62 U/L (40-129) Total Protein 5.6 g/dL (6.6-8.7) L Albumin 2.6 g/dL (3.5-5.2) L Globulin 3.0 g/dL Albumin/Globulin Ratio 0.8 (1.0-2.7) L Height (Feet): 5 Height (Inches): 4.00 Weight (Pounds): 180 General Appearance: alert Cardiovascular: normal rate Respiratory/Chest: other - mech vent Abdominal Exam: GT site - c/d/i Lucero Thakkar N.P. Mar 06, 2017 11:33 REDD MEDRANO Mar 07, 2017 12:24
[2017-03-06 12:00] VITALS: BP 131/66
--- NOTE | 2017-03-06 12:08 | Pulmonology Progress Note ---
Assessment/Plan Problems: (1) Acute and chronic respiratory failure (2) Aspiration pneumonia (3) Sepsis (4) UTI (urinary tract infection) Respiratory: monitor respiratory rate, adjust FIO2 Cardiac: continue to monitor HR/BP Renal: F/U I&O, keep IV fluid, check electrolytes Infectious Disease: check cultures, continue antibiotics Gastrointestinal: continue feedings/current rate, hold feedings Endocrine: check HgA1C Hematologic: monitor H/H, transfuse if hgb<8.5 Neurologic: PRN Ativan, keep patient comfortable Affect: PRN ativan Prophylaxis: Heparin Disposition: keep in ICU Notes Reviewed: rn critical care Subjective ROS Limited/Unobtainable: Yes Allergies: Coded Allergies: No Known Allergies (Unverified , 02/27/17) Objective Last 24 Hour Vital Signs Date Time Temp Pulse Resp B/P Pulse Ox O2 Delivery O2 Flow Rate FiO2 03/06/17 10:42 46 16 35 03/06/17 08:46 46 16 35 03/06/17 08:00 35 03/06/17 08:00 54 03/06/17 08:00 98.2 45 16 138/69 99 Mechanical Ventilator 03/06/17 07:01 44 16 35 03/06/17 05:19 46 16 35 03/06/17 04:00 98.5 50 16 126/62 98 Mechanical Ventilator 03/06/17 04:00 35 03/06/17 04:00 53 03/06/17 03:12 49 16 35 03/06/17 00:47 48 16 35 03/06/17 00:00 35 03/06/17 00:00 54 03/05/17 23:54 99.4 44 16 127/57 98 Mechanical Ventilator 03/05/17 23:29 47 16 35 03/05/17 21:15 51 16 35 03/05/17 20:22 50 16 35 03/05/17 20:00 43 03/05/17 20:00 35 03/05/17 20:00 97.1 46 16 117/53 97 Mechanical Ventilator 03/05/17 16:54 47 16 35 03/05/17 16:00 99.0 63 16 139/74 98 Mechanical Ventilator 35 03/05/17 16:00 35 03/05/17 16:00 57 03/05/17 15:18 54 16 35 03/05/17 13:28 56 16 35 Intake and Output 03/05/17 03/06/17 19:00 07:00 Intake Total 2196.666 ml 1735.000 ml Output Total 600 ml 700 ml Balance 1596.666 ml 1035.000 ml Free Water 100 ml 50 ml IV Total 1376.666 ml 985.000 ml Tube Feeding 720 ml 600 ml Other 100 ml Output Urine Total 600 ml 700 ml # Bowel Movements 1 2 General Appearance: WD/WN HEENT: normocephalic, atraumatic Respiratory/Chest: chest wall non-tender, lungs clear Cardiovascular: normal peripheral pulses, normal rate Abdomen: normal bowel sounds, soft, non tender Genitourinary: normal external genitalia Extremities: no clubbing Skin: no lesions Neurologic/Psychiatric: acid remover II-XII grossly normal, abnormal gait Lymphatic: no groin adenopathy Musculoskeletal: normal muscle bulk Laboratory Tests 03/05/17 15:00: Stool Occult Blood [Pending] 03/06/17 03:15: White Blood Count 8.7, Red Blood Count 3.75L, Hemoglobin 11.9L, Hematocrit 35.9L , Mean Corpuscular Volume 96, Mean Corpuscular Hemoglobin 31.7H, Mean Corpuscular Hemoglobin Concent 33.1, Red Cell Distribution Width 12.9, Platelet Count 159, Mean Platelet Volume 11.8H, Neutrophils (%) (Auto) 62.2, Lymphocytes (%) (Auto) 22.9, Monocytes (%) (Auto) 9.5, Eosinophils (%) (Auto) 4.2H, Basophils (%) (Auto) 1.2, Sodium Level 137, Potassium Level 3.7, Chloride Level 100, Carbon Dioxide Level 24, Anion Gap 13, Blood Urea Nitrogen 12, Creatinine 0.5L, Estimat Glomerular Filtration Rate , Glucose Level 148H, Calcium Level 8.3L, Phosphorus Level 1.9L, Magnesium Level 1.9, Total Bilirubin 0.5, Aspartate Amino Transf (AST/SGOT) 27, Alanine Aminotransferase (ALT/SGPT) 42H, Alkaline Phosphatase 62, Total Protein 5.6L, Albumin 2.6L, Globulin 3.0, Albumin /Globulin Ratio 0.8L Current Medications Medications (Trade) Dose Ordered Sig/Kevin Route PRN Reason Start Time Stop Time Status Last Admin Dose Admin Acetaminophen 650 mg 650 mg Q4H PRN GT Mild Pain/Temp > 100.5 03/03/17 22:45 04/02/17 22:44 Albuterol/ Ipratropium 3 ml 3 ml Q4H PRN HHN Shortness of Breath 03/02/17 13:45 03/07/17 23:59 Dextrose (Dextrose 50%) STAT PRN IV Hypoglycemia 02/27/17 13:45 03/29/17 13:44 Docusate Sodium (Colace) 100 mg THREE TIMES A DAY GT 03/04/17 09:00 04/03/17 08:59 03/06/17 09:22 Heparin Sodium (Porcine) (Heparin 5000 units/ml) 5,000 units EVERY 12 HOURS SUBQ 02/27/17 21:00 03/29/17 20:59 03/06/17 09:25 Lansoprazole (Prevacid) 30 mg DAILY GT 03/01/17 09:00 03/31/17 08:59 03/06/17 09:22 Levothyroxine Sodium (Synthroid) 75 mcg ACBREAKFAST GT 03/02/17 06:30 04/01/17 06:29 03/06/17 06:01 Lorazepam (Ativan 2mg/ml 1ml) 2 mg Q2H PRN IV For Anxiety 02/27/17 13:45 03/06/17 13:44 03/01/17 13:49 Meropenem/Sodium Chloride (Merrem/Sodium Chloride) 110 ml @ 220 mls/hr Q12HR@0800,2000 IVPB 03/03/17 20:00 03/08/17 19:59 03/06/17 08:09 Morphine Sulfate (Morphine Sulfate) 4 mg Q4H PRN IVP Severe Pain (Pain Scale 7-10) 02/27/17 13:45 03/06/17 13:44 Ondansetron HCl (Zofran) 4 mg Q6H PRN IVP Nausea & Vomiting 02/27/17 13:45 03/29/17 13:44 Polyethylene Glycol (Miralax) 17 gm BEDTIME GT 02/28/17 21:00 03/30/17 20:59 03/05/17 21:20 Polyethylene Glycol 17 gm 17 gm DAILYPRN PRN GT Constipation 03/01/17 14:44 03/29/17 13:44 Potassium Phosphate/Sodium Chloride (Potassium Phosphate/Sodium Chloride) 285 ml @ 47.5 mls/hr ONCE ONCE IV 03/06/17 11:00 03/06/17 16:59 03/06/17 10:52 Sodium Chloride (Sodium Chloride 1000ml bag) 1,000 ml @ 50 mls/hr Q20H IV 03/01/17 22:10 03/31/17 22:09 03/06/17 02:56 Vancomycin HCl (Vanco rx to dose) 1 ea DAILY PRN MISC . 02/27/17 20:15 03/29/17 20:14 Vancomycin HCl 750 mg/Dextrose 275 ml @ 183.333 mls/hr Q12HR IVPB 03/03/17 09:00 03/08/17 08:59 03/06/17 08:52 CRISTIAN HURLEY Mar 06, 2017 12:08
--- NOTE | 2017-03-06 14:27 | General Progress Note ---
Assessment/Plan Problem List: (1) Chronic respiratory failure ICD Codes: J96.10 - Chronic respiratory failure, unspecified whether with hypoxia or hypercapnia SNOMED: 27453084 (2) Aspiration pneumonia ICD Codes: J69.0 - Pneumonitis due to inhalation of food and vomit SNOMED: 101831637 (3) Sepsis ICD Codes: A41.9 - Sepsis, unspecified organism SNOMED: 51409747 (4) Acute and chronic respiratory failure ICD Codes: J96.20 - Acute and chronic respiratory failure, unspecified whether with hypoxia or hypercapnia SNOMED: 65354016, 56283266 (5) Bradycardia ICD Codes: R00.1 - Bradycardia, unspecified SNOMED: 77777692 (6) Acute abdominal pain ICD Codes: R10.9 - Unspecified abdominal pain SNOMED: 633127899 Status: stable, progressing, tolerating diet Assessment/Plan vent abx gi eval ot pt diet dc if clear by id and pulm Subjective Constitutional: Reports: weakness Allergies: Coded Allergies: No Known Allergies (Unverified , 02/27/17) All Systems: reviewed and negative except above Subjective trach vent altered Objective Last 24 Hour Vital Signs Date Time Temp Pulse Resp B/P Pulse Ox O2 Delivery O2 Flow Rate FiO2 03/06/17 12:38 54 16 35 03/06/17 12:32 55 03/06/17 12:00 35 03/06/17 12:00 98.5 52 16 131/66 98 03/06/17 10:42 46 16 35 03/06/17 08:46 46 16 35 03/06/17 08:00 35 03/06/17 08:00 54 03/06/17 08:00 98.2 45 16 138/69 99 Mechanical Ventilator 03/06/17 07:01 44 16 35 03/06/17 05:19 46 16 35 03/06/17 04:00 98.5 50 16 126/62 98 Mechanical Ventilator 03/06/17 04:00 35 03/06/17 04:00 53 03/06/17 03:12 49 16 35 03/06/17 00:47 48 16 35 03/06/17 00:00 35 03/06/17 00:00 54 03/05/17 23:54 99.4 44 16 127/57 98 Mechanical Ventilator 03/05/17 23:29 47 16 35 03/05/17 21:15 51 16 35 03/05/17 20:22 50 16 35 03/05/17 20:00 43 03/05/17 20:00 35 03/05/17 20:00 97.1 46 16 117/53 97 Mechanical Ventilator 03/05/17 16:54 47 16 35 03/05/17 16:00 99.0 63 16 139/74 98 Mechanical Ventilator 35 03/05/17 16:00 35 03/05/17 16:00 57 03/05/17 15:18 54 16 35 Intake and Output 03/05/17 03/06/17 19:00 07:00 Intake Total 2196.666 ml 1735.000 ml Output Total 600 ml 700 ml Balance 1596.666 ml 1035.000 ml Free Water 100 ml 50 ml IV Total 1376.666 ml 985.000 ml Tube Feeding 720 ml 600 ml Other 100 ml Output Urine Total 600 ml 700 ml # Bowel Movements 1 2 Laboratory Tests 03/05/17 15:00: Stool Occult Blood Negative 03/06/17 03:15: White Blood Count 8.7, Red Blood Count 3.75L, Hemoglobin 11.9L, Hematocrit 35.9L , Mean Corpuscular Volume 96, Mean Corpuscular Hemoglobin 31.7H, Mean Corpuscular Hemoglobin Concent 33.1, Red Cell Distribution Width 12.9, Platelet Count 159, Mean Platelet Volume 11.8H, Neutrophils (%) (Auto) 62.2, Lymphocytes (%) (Auto) 22.9, Monocytes (%) (Auto) 9.5, Eosinophils (%) (Auto) 4.2H, Basophils (%) (Auto) 1.2, Sodium Level 137, Potassium Level 3.7, Chloride Level 100, Carbon Dioxide Level 24, Anion Gap 13, Blood Urea Nitrogen 12, Creatinine 0.5L, Estimat Glomerular Filtration Rate , Glucose Level 148H, Calcium Level 8.3L, Phosphorus Level 1.9L, Magnesium Level 1.9, Total Bilirubin 0.5, Aspartate Amino Transf (AST/SGOT) 27, Alanine Aminotransferase (ALT/SGPT) 42H, Alkaline Phosphatase 62, Total Protein 5.6L, Albumin 2.6L, Globulin 3.0, Albumin /Globulin Ratio 0.8L Height (Feet): 5 Height (Inches): 4.00 Weight (Pounds): 180 General Appearance: lethargic EENT: normal ENT inspection Neck: normal alignment Cardiovascular: normal peripheral pulses, normal rate, regular rhythm Respiratory/Chest: chest wall non-tender, lungs clear, normal breath sounds Abdomen: normal bowel sounds, non tender, soft Extremities: normal inspection Edema: no edema noted Arm (L), no edema noted Arm (R), no edema noted Leg (L), no edema noted Leg (R), no edema noted Pedal (L), no edema noted Pedal (R), no edema noted Generalized Neurologic: motor weakness Skin: normal pigmentation, warm/dry KOBE HERNANDEZ Mar 06, 2017 14:27
[2017-03-06 16:00] VITALS: BP 136/61
--- NOTE | 2017-03-06 17:34 | Infectious Diseases Prog Note ---
Assessment/Plan Problems: (1) Sepsis Assessment & Plan: due to pneumonia and UTI, on vancomycin and meropenem , blood culture is negative (2) Aspiration pneumonia Assessment & Plan: due to serratia marcescens, continue meropenem and vancomycin for 10 days EOT 03/12/17 (3) Acute and chronic respiratory failure Assessment & Plan: due to the above, improved, S/P mechanical ventilation , monitor CXR (4) Chronic respiratory failure Assessment & Plan: S/P Trach, continue trach care , titrate O2 as needed (5) Acute abdominal pain Assessment & Plan: CT abdomen didn't show any abdominal pathology , further management as per primary team (6) UTI (urinary tract infection) Assessment & Plan: with MDR Acinetobacter baumannii , on meropenem for 10 days Subjective ROS Limited/Unobtainable: Yes Allergies: Coded Allergies: No Known Allergies (Unverified , 02/27/17) Subjective he was awake and alert, communicating by nodding his head, afebrile. not on pressors. Objective Vital Signs Last 24 Hour Vital Signs Date Time Temp Pulse Resp B/P Pulse Ox O2 Delivery O2 Flow Rate FiO2 03/06/17 17:02 65 20 35 03/06/17 16:00 35 03/06/17 16:00 98.0 59 18 136/61 98 Mechanical Ventilator 35 03/06/17 15:50 58 03/06/17 15:26 76 16 35 03/06/17 12:38 54 16 35 03/06/17 12:32 55 03/06/17 12:00 35 03/06/17 12:00 98.5 52 16 131/66 98 03/06/17 10:42 46 16 35 03/06/17 08:46 46 16 35 03/06/17 08:00 35 03/06/17 08:00 54 03/06/17 08:00 98.2 45 16 138/69 99 Mechanical Ventilator 03/06/17 07:01 44 16 35 03/06/17 05:19 46 16 35 03/06/17 04:00 98.5 50 16 126/62 98 Mechanical Ventilator 03/06/17 04:00 35 03/06/17 04:00 53 03/06/17 03:12 49 16 35 03/06/17 00:47 48 16 35 03/06/17 00:00 35 03/06/17 00:00 54 03/05/17 23:54 99.4 44 16 127/57 98 Mechanical Ventilator 03/05/17 23:29 47 16 35 03/05/17 21:15 51 16 35 03/05/17 20:22 50 16 35 03/05/17 20:00 43 03/05/17 20:00 35 03/05/17 20:00 97.1 46 16 117/53 97 Mechanical Ventilator Height (Feet): 5 Height (Inches): 4.00 Weight (Pounds): 180 General Appearance: WD/WN, no acute distress HEENT: normocephalic, atraumatic, anicteric, mucous membranes moist, supple, status post trach Respiratory/Chest: chest wall non-tender, normal breath sounds, no respiratory distress, decreased breath sounds Cardiovascular: normal peripheral pulses, normal rate, regular rhythm, no gallop/murmur, no JVD Abdomen: normal bowel sounds, soft, non tender, no organomegaly, non distended , no mass, no scars Extremities: no cyanosis, no clubbing Skin: no rash, no lesions, ulcers Neurologic/Psychiatric: alert Lymphatic: no neck adenopathy Musculoskeletal: no effusion Laboratory Tests Test 03/06/17 03:15 White Blood Count 8.7 K/UL (4.8-10.8) Red Blood Count 3.75 M/UL (4.70-6.10) L Hemoglobin 11.9 G/DL (14.2-18.0) L Hematocrit 35.9 % (42.0-52.0) L Mean Corpuscular Volume 96 FL (80-99) Mean Corpuscular Hemoglobin 31.7 PG (27.0-31.0) H Mean Corpuscular Hemoglobin Concent 33.1 G/DL (32.0-36.0) Red Cell Distribution Width 12.9 % (11.6-14.8) Platelet Count 159 K/UL (150-450) Mean Platelet Volume 11.8 FL (6.5-10.1) H Neutrophils (%) (Auto) 62.2 % (45.0-75.0) Lymphocytes (%) (Auto) 22.9 % (20.0-45.0) Monocytes (%) (Auto) 9.5 % (1.0-10.0) Eosinophils (%) (Auto) 4.2 % (0.0-3.0) H Basophils (%) (Auto) 1.2 % (0.0-2.0) Sodium Level 137 mEQ/L (135-145) Potassium Level 3.7 mEQ/L (3.4-4.9) Chloride Level 100 mEQ/L (98-107) Carbon Dioxide Level 24 mEQ/L (20-30) Anion Gap 13 (5-15) Blood Urea Nitrogen 12 mg/dL (7-23) Creatinine 0.5 mg/dL (0.7-1.2) L Estimat Glomerular Filtration Rate mL/min (>60) Glucose Level 148 mg/dL (74-106) H Calcium Level 8.3 mg/dL (8.6-10.2) L Phosphorus Level 1.9 mg/dL (2.5-4.8) L Magnesium Level 1.9 mg/dL (1.7-2.5) Total Bilirubin 0.5 mg/dL (0.0-1.2) Aspartate Amino Transf (AST/SGOT) 27 U/L (5-40) Alanine Aminotransferase (ALT/SGPT) 42 U/L (3-41) H Alkaline Phosphatase 62 U/L (40-129) Total Protein 5.6 g/dL (6.6-8.7) L Albumin 2.6 g/dL (3.5-5.2) L Globulin 3.0 g/dL Albumin/Globulin Ratio 0.8 (1.0-2.7) L Current Medications Medications (Trade) Dose Ordered Sig/Kevin Route PRN Reason Start Time Stop Time Status Last Admin Dose Admin Acetaminophen (Tylenol) 650 mg Q4H PRN GT Mild Pain/Temp > 100.5 03/03/17 22:45 04/02/17 22:44 Albuterol/ Ipratropium 3 ml 3 ml Q4H PRN HHN Shortness of Breath 03/02/17 13:45 03/07/17 23:59 Dextrose (Dextrose 50%) STAT PRN IV Hypoglycemia 02/27/17 13:45 03/29/17 13:44 Docusate Sodium (Colace) 100 mg THREE TIMES A DAY GT 03/04/17 09:00 04/03/17 08:59 03/06/17 09:22 Heparin Sodium (Porcine) (Heparin 5000 units/ml) 5,000 units EVERY 12 HOURS SUBQ 02/27/17 21:00 03/29/17 20:59 03/06/17 09:25 Lansoprazole (Prevacid) 30 mg DAILY GT 03/01/17 09:00 03/31/17 08:59 03/06/17 09:22 Levothyroxine Sodium (Synthroid) 75 mcg ACBREAKFAST GT 03/02/17 06:30 04/01/17 06:29 03/06/17 06:01 Meropenem/Sodium Chloride (Merrem/Sodium Chloride) 110 ml @ 220 mls/hr Q12HR@0800,2000 IVPB 03/03/17 20:00 03/08/17 19:59 03/06/17 08:09 Ondansetron HCl (Zofran) 4 mg Q6H PRN IVP Nausea & Vomiting 02/27/17 13:45 03/29/17 13:44 Polyethylene Glycol (Miralax) 17 gm BEDTIME GT 02/28/17 21:00 03/30/17 20:59 03/05/17 21:20 Polyethylene Glycol 17 gm 17 gm DAILYPRN PRN GT Constipation 03/01/17 14:44 03/29/17 13:44 Sodium Chloride (Sodium Chloride 1000ml bag) 1,000 ml @ 50 mls/hr Q20H IV 03/01/17 22:10 03/31/17 22:09 03/06/17 02:56 Vancomycin HCl (Vanco rx to dose) 1 ea DAILY PRN MISC . 02/27/17 20:15 03/29/17 20:14 Vancomycin HCl 750 mg/Dextrose 275 ml @ 183.333 mls/hr Q12HR IVPB 03/03/17 09:00 03/08/17 08:59 03/06/17 08:52 Papito Don M.D. Mar 06, 2017 17:34
[2017-03-06 20:00] VITALS: BP 153/69
[2017-03-06] MEDS: Miralax 17gm pkt GT SCH (20:39)
[2017-03-07] VITALS: BP 96/46
[2017-03-07 04:00] VITALS: BP 104/40
[2017-03-07 07:42] VITALS: BP 117/61
[2017-03-07 07:46] LABS: BASOPHILS % (AUTO) 0.9 % (0.0-2.0); EOSINOPHILS % (AUTO) 2.5 % (0.0-3.0); MEAN CORPUSCULAR HEMOGLOBIN 31.7 PG (27.0-31.0); MEAN CORPUSCULAR HGB CONC 32.8 G/DL (32.0-36.0); MEAN CORPUSCULAR VOLUME 97 FL (80-99); MEAN PLATELET VOLUME 10.4 FL (6.5-10.1); MONOCYTES % (AUTO) 7.3 % (1.0-10.0); NEUTROPHILS % (AUTO) 72.3 % (45.0-75.0); PLATELET COUNT 163 K/UL (150-450); RED BLOOD COUNT 4.06 M/UL (4.70-6.10); RED CELL DISTRIBUTION WIDTH 13.1 % (11.6-14.8); WHITE BLOOD COUNT 10.3 K/UL (4.8-10.8)
[2017-03-07] MEDS: Meropenem 1 GM in NS 110 ML IVPB SCH ×2 (07:49→20:20)
[2017-03-07 08:06] LABS: ANION GAP 10 (5-15); CALCIUM 8.4 mg/dL (8.6-10.2); CARBON DIOXIDE 24 mEQ/L (20-30); CHLORIDE 103 mEQ/L (98-107); CREATININE 0.6 mg/dL (0.7-1.2); HEMOLYSIS 3; PHOSPHORUS 2.8 mg/dL (2.5-4.8); POTASSIUM 3.9 mEQ/L (3.4-4.9); SODIUM 137 mEQ/L (135-145)
[2017-03-07] MEDS: Docusate 100mg/10ml Liq GT SCH ×3 (08:34→17:35)
[2017-03-07] MEDS: Vancomycin 750 MG in D5W 275 ML IVPB SCH ×2 (08:34→21:00)
[2017-03-07] MEDS: Heparin 5000 units/ml inj SUBQ SCH ×2 (08:37→20:26)
--- NOTE | 2017-03-07 11:03 | GI Progress Note ---
Assessment/Plan Problems: (1) Hypoalbuminemia ICD Codes: E88.09 - Other disorders of plasma-protein metabolism, not elsewhere classified SNOMED: 708212769 (2) Constipation ICD Codes: K59.00 - Constipation, unspecified SNOMED: 49466426 (3) Acute abdominal pain ICD Codes: R10.9 - Unspecified abdominal pain SNOMED: 314265498 Status: stable Status Narrative Discussed with Dr. Medrano. Assessment/Plan stool ob negative supportive care GTFs per dietary >> Jevity 1.2 @60ml bowel regime >> colace + miralax monitor H&H, transfuse prn prevacid GT fu labs Subjective Subjective limited Objective Last 24 Hour Vital Signs Date Time Temp Pulse Resp B/P Pulse Ox O2 Delivery O2 Flow Rate FiO2 03/07/17 10:56 54 16 35 03/07/17 09:00 53 16 35 03/07/17 08:00 56 03/07/17 08:00 35 03/07/17 07:42 98.1 59 18 117/61 98 Mechanical Ventilator 35 03/07/17 07:00 62 16 35 03/07/17 05:34 71 19 35 03/07/17 04:00 97.7 65 17 104/40 97 Mechanical Ventilator 35 03/07/17 04:00 35 03/07/17 04:00 67 03/07/17 03:03 70 16 35 03/07/17 00:45 70 18 35 03/07/17 00:00 98.6 68 20 96/46 99 Mechanical Ventilator 35 03/07/17 00:00 35 03/07/17 00:00 72 03/06/17 22:43 68 19 35 03/06/17 21:02 65 19 35 03/06/17 20:00 35 03/06/17 20:00 65 03/06/17 20:00 98.9 69 20 153/69 99 Mechanical Ventilator 35 03/06/17 18:54 60 20 35 03/06/17 17:02 65 20 35 03/06/17 16:00 35 03/06/17 16:00 98.0 59 18 136/61 98 Mechanical Ventilator 35 03/06/17 15:50 58 03/06/17 15:26 76 16 35 03/06/17 12:38 54 16 35 03/06/17 12:32 55 03/06/17 12:00 35 03/06/17 12:00 98.5 52 16 131/66 98 Intake and Output 03/06/17 03/07/17 19:00 07:00 Intake Total 1871.666 ml 1564.333 ml Output Total 825 ml Balance 1871.666 ml 739.333 ml Free Water 130 ml 100 ml IV Total 1021.666 ml 814.333 ml Tube Feeding 720 ml 600 ml Other 50 ml Output Urine Total 825 ml # Bowel Movements 4 3 Laboratory Tests Test 03/07/17 07:25 White Blood Count 10.3 K/UL (4.8-10.8) Red Blood Count 4.06 M/UL (4.70-6.10) L Hemoglobin 12.9 G/DL (14.2-18.0) L Hematocrit 39.3 % (42.0-52.0) L Mean Corpuscular Volume 97 FL (80-99) Mean Corpuscular Hemoglobin 31.7 PG (27.0-31.0) H Mean Corpuscular Hemoglobin Concent 32.8 G/DL (32.0-36.0) Red Cell Distribution Width 13.1 % (11.6-14.8) Platelet Count 163 K/UL (150-450) Mean Platelet Volume 10.4 FL (6.5-10.1) H Neutrophils (%) (Auto) 72.3 % (45.0-75.0) Lymphocytes (%) (Auto) 17.0 % (20.0-45.0) L Monocytes (%) (Auto) 7.3 % (1.0-10.0) Eosinophils (%) (Auto) 2.5 % (0.0-3.0) Basophils (%) (Auto) 0.9 % (0.0-2.0) Sodium Level 137 mEQ/L (135-145) Potassium Level 3.9 mEQ/L (3.4-4.9) Chloride Level 103 mEQ/L (98-107) Carbon Dioxide Level 24 mEQ/L (20-30) Anion Gap 10 (5-15) Blood Urea Nitrogen 12 mg/dL (7-23) Creatinine 0.6 mg/dL (0.7-1.2) L Estimat Glomerular Filtration Rate mL/min (>60) Glucose Level 139 mg/dL (74-106) H Calcium Level 8.4 mg/dL (8.6-10.2) L Phosphorus Level 2.8 mg/dL (2.5-4.8) Height (Feet): 5 Height (Inches): 4.00 Weight (Pounds): 180 General Appearance: no apparent distress Cardiovascular: normal rate Respiratory/Chest: normal breath sounds, no respiratory distress, other - mech vent Abdominal Exam: GT site - c/d/i Lucero Thakkar N.P. Mar 07, 2017 11:03
[2017-03-07 11:54] VITALS: BP 117/54
--- NOTE | 2017-03-07 12:01 | Pulmonology Progress Note ---
Assessment/Plan Problems: (1) Acute and chronic respiratory failure (2) Aspiration pneumonia (3) Sepsis (4) UTI (urinary tract infection) Respiratory: monitor respiratory rate, adjust FIO2 Cardiac: continue to monitor HR/BP Renal: F/U I&O, keep IV fluid Infectious Disease: check cultures Gastrointestinal: continue feedings/current rate Endocrine: check TSH, check HgA1C, continue sliding scale insulin Hematologic: transfuse if hgb<8.5 Neurologic: PRN Ativan, PRN Morphine, keep patient comfortable Prophylaxis: Protonix, Heparin Notes Reviewed: cardio, renal Discussed with: nurses, consultants, spring encaser Subjective ROS Limited/Unobtainable: No Constitutional: Reports: no symptoms Respiratory: Reports: other Cardiovascular: Reports: no symptoms Allergies: Coded Allergies: No Known Allergies (Unverified , 02/27/17) Objective Last 24 Hour Vital Signs Date Time Temp Pulse Resp B/P Pulse Ox O2 Delivery O2 Flow Rate FiO2 03/07/17 11:54 97.5 52 18 117/54 98 Mechanical Ventilator 35 03/07/17 10:56 54 16 35 03/07/17 09:00 53 16 35 03/07/17 08:00 56 03/07/17 08:00 35 03/07/17 07:42 98.1 59 18 117/61 98 Mechanical Ventilator 35 03/07/17 07:00 62 16 35 03/07/17 05:34 71 19 35 03/07/17 04:00 97.7 65 17 104/40 97 Mechanical Ventilator 35 03/07/17 04:00 35 03/07/17 04:00 67 03/07/17 03:03 70 16 35 03/07/17 00:45 70 18 35 03/07/17 00:00 98.6 68 20 96/46 99 Mechanical Ventilator 35 03/07/17 00:00 35 03/07/17 00:00 72 03/06/17 22:43 68 19 35 03/06/17 21:02 65 19 35 03/06/17 20:00 35 03/06/17 20:00 65 03/06/17 20:00 98.9 69 20 153/69 99 Mechanical Ventilator 35 03/06/17 18:54 60 20 35 03/06/17 17:02 65 20 35 03/06/17 16:00 35 03/06/17 16:00 98.0 59 18 136/61 98 Mechanical Ventilator 35 03/06/17 15:50 58 03/06/17 15:26 76 16 35 03/06/17 12:38 54 16 35 03/06/17 12:32 55 Intake and Output 03/06/17 03/07/17 19:00 07:00 Intake Total 1871.666 ml 1564.333 ml Output Total 825 ml Balance 1871.666 ml 739.333 ml Free Water 130 ml 100 ml IV Total 1021.666 ml 814.333 ml Tube Feeding 720 ml 600 ml Other 50 ml Output Urine Total 825 ml # Bowel Movements 4 3 General Appearance: WD/WN HEENT: normocephalic, atraumatic Respiratory/Chest: chest wall non-tender, normal breath sounds Cardiovascular: normal peripheral pulses, normal rate, regular rhythm Abdomen: soft, non tender Genitourinary: normal external genitalia Extremities: no cyanosis Skin: no rash, no lesions Laboratory Tests 03/07/17 07:25: White Blood Count 10.3, Red Blood Count 4.06L, Hemoglobin 12.9L, Hematocrit 39.3L, Mean Corpuscular Volume 97, Mean Corpuscular Hemoglobin 31.7H, Mean Corpuscular Hemoglobin Concent 32.8, Red Cell Distribution Width 13.1, Platelet Count 163, Mean Platelet Volume 10.4H, Neutrophils (%) (Auto) 72.3, Lymphocytes (%) (Auto) 17.0L, Monocytes (%) (Auto) 7.3, Eosinophils (%) (Auto) 2.5, Basophils (%) (Auto) 0.9, Sodium Level 137, Potassium Level 3.9, Chloride Level 103, Carbon Dioxide Level 24, Anion Gap 10, Blood Urea Nitrogen 12, Creatinine 0.6L, Estimat Glomerular Filtration Rate , Glucose Level 139H, Calcium Level 8.4L, Phosphorus Level 2.8 Current Medications Medications (Trade) Dose Ordered Sig/Kevin Route PRN Reason Start Time Stop Time Status Last Admin Dose Admin Acetaminophen (Tylenol) 650 mg Q4H PRN GT Mild Pain/Temp > 100.5 03/03/17 22:45 04/02/17 22:44 Albuterol/ Ipratropium 3 ml 3 ml Q4H PRN HHN Shortness of Breath 03/02/17 13:45 03/07/17 23:59 Dextrose (Dextrose 50%) STAT PRN IV Hypoglycemia 02/27/17 13:45 03/29/17 13:44 Docusate Sodium (Colace) 100 mg THREE TIMES A DAY GT 03/04/17 09:00 04/03/17 08:59 03/06/17 09:22 Heparin Sodium (Porcine) (Heparin 5000 units/ml) 5,000 units EVERY 12 HOURS SUBQ 02/27/17 21:00 03/29/17 20:59 03/07/17 08:37 Lansoprazole (Prevacid) 30 mg DAILY GT 03/01/17 09:00 03/31/17 08:59 03/07/17 08:34 Levothyroxine Sodium (Synthroid) 75 mcg ACBREAKFAST GT 03/02/17 06:30 04/01/17 06:29 03/07/17 06:18 Meropenem/Sodium Chloride (Merrem/Sodium Chloride) 110 ml @ 220 mls/hr Q12HR@0800,2000 IVPB 03/03/17 20:00 03/08/17 19:59 03/07/17 07:49 Ondansetron HCl (Zofran) 4 mg Q6H PRN IVP Nausea & Vomiting 02/27/17 13:45 03/29/17 13:44 Polyethylene Glycol (Miralax) 17 gm BEDTIME GT 02/28/17 21:00 03/30/17 20:59 03/05/17 21:20 Polyethylene Glycol 17 gm 17 gm DAILYPRN PRN GT Constipation 03/01/17 14:44 03/29/17 13:44 Sodium Chloride (Sodium Chloride 1000ml bag) 1,000 ml @ 50 mls/hr Q20H IV 03/01/17 22:10 03/31/17 22:09 03/06/17 22:15 Vancomycin HCl (Vanco rx to dose) 1 ea DAILY PRN MISC . 02/27/17 20:15 03/29/17 20:14 Vancomycin HCl 750 mg/Dextrose 275 ml @ 183.333 mls/hr Q12HR IVPB 03/03/17 09:00 03/08/17 08:59 03/07/17 08:34 CRISTIAN HURLEY Mar 07, 2017 12:01
--- NOTE | 2017-03-07 14:07 | General Progress Note ---
Assessment/Plan Problem List: (1) Chronic respiratory failure ICD Codes: J96.10 - Chronic respiratory failure, unspecified whether with hypoxia or hypercapnia SNOMED: 11063359 (2) Aspiration pneumonia ICD Codes: J69.0 - Pneumonitis due to inhalation of food and vomit SNOMED: 130562150 (3) Sepsis ICD Codes: A41.9 - Sepsis, unspecified organism SNOMED: 01316324 (4) Acute and chronic respiratory failure ICD Codes: J96.20 - Acute and chronic respiratory failure, unspecified whether with hypoxia or hypercapnia SNOMED: 36185722, 56117073 (5) Bradycardia ICD Codes: R00.1 - Bradycardia, unspecified SNOMED: 81497365 (6) Acute abdominal pain ICD Codes: R10.9 - Unspecified abdominal pain SNOMED: 894095450 Status: stable, progressing, tolerating diet Assessment/Plan vent abx gi eval ot pt diet dc if clear by id and pulm Subjective Constitutional: Reports: weakness Allergies: Coded Allergies: No Known Allergies (Unverified , 02/27/17) All Systems: reviewed and negative except above Subjective trach vent altered Objective Last 24 Hour Vital Signs Date Time Temp Pulse Resp B/P Pulse Ox O2 Delivery O2 Flow Rate FiO2 03/07/17 12:00 35 03/07/17 12:00 53 03/07/17 11:54 97.5 52 18 117/54 98 Mechanical Ventilator 35 03/07/17 10:56 54 16 35 03/07/17 09:00 53 16 35 03/07/17 08:00 56 03/07/17 08:00 35 03/07/17 07:42 98.1 59 18 117/61 98 Mechanical Ventilator 35 03/07/17 07:00 62 16 35 03/07/17 05:34 71 19 35 03/07/17 04:00 97.7 65 17 104/40 97 Mechanical Ventilator 35 03/07/17 04:00 35 03/07/17 04:00 67 03/07/17 03:03 70 16 35 03/07/17 00:45 70 18 35 03/07/17 00:00 98.6 68 20 96/46 99 Mechanical Ventilator 35 03/07/17 00:00 35 03/07/17 00:00 72 03/06/17 22:43 68 19 35 03/06/17 21:02 65 19 35 03/06/17 20:00 35 03/06/17 20:00 65 03/06/17 20:00 98.9 69 20 153/69 99 Mechanical Ventilator 35 03/06/17 18:54 60 20 35 03/06/17 17:02 65 20 35 03/06/17 16:00 35 03/06/17 16:00 98.0 59 18 136/61 98 Mechanical Ventilator 35 03/06/17 15:50 58 03/06/17 15:26 76 16 35 Intake and Output 03/06/17 03/07/17 19:00 07:00 Intake Total 1871.666 ml 1564.333 ml Output Total 825 ml Balance 1871.666 ml 739.333 ml Free Water 130 ml 100 ml IV Total 1021.666 ml 814.333 ml Tube Feeding 720 ml 600 ml Other 50 ml Output Urine Total 825 ml # Bowel Movements 4 3 Laboratory Tests 03/07/17 07:25: White Blood Count 10.3, Red Blood Count 4.06L, Hemoglobin 12.9L, Hematocrit 39.3L, Mean Corpuscular Volume 97, Mean Corpuscular Hemoglobin 31.7H, Mean Corpuscular Hemoglobin Concent 32.8, Red Cell Distribution Width 13.1, Platelet Count 163, Mean Platelet Volume 10.4H, Neutrophils (%) (Auto) 72.3, Lymphocytes (%) (Auto) 17.0L, Monocytes (%) (Auto) 7.3, Eosinophils (%) (Auto) 2.5, Basophils (%) (Auto) 0.9, Sodium Level 137, Potassium Level 3.9, Chloride Level 103, Carbon Dioxide Level 24, Anion Gap 10, Blood Urea Nitrogen 12, Creatinine 0.6L, Estimat Glomerular Filtration Rate , Glucose Level 139H, Calcium Level 8.4L, Phosphorus Level 2.8 Height (Feet): 5 Height (Inches): 4.00 Weight (Pounds): 180 General Appearance: lethargic EENT: normal ENT inspection Neck: normal alignment Cardiovascular: normal peripheral pulses, normal rate, regular rhythm Respiratory/Chest: chest wall non-tender, lungs clear, normal breath sounds Abdomen: normal bowel sounds, non tender, soft Extremities: normal inspection Edema: no edema noted Arm (L), no edema noted Arm (R), no edema noted Leg (L), no edema noted Leg (R), no edema noted Pedal (L), no edema noted Pedal (R), no edema noted Generalized Neurologic: motor weakness Skin: normal pigmentation, warm/dry KOBE HERNANDEZ Mar 07, 2017 14:07
[2017-03-07 16:00] VITALS: BP 143/69
--- NOTE | 2017-03-07 16:48 | Infectious Diseases Prog Note ---
Assessment/Plan Problems: (1) Sepsis Assessment & Plan: due to pneumonia and UTI, on vancomycin and meropenem , blood culture is negative (2) Aspiration pneumonia Assessment & Plan: due to serratia marcescens, continue meropenem and vancomycin for 10 days EOT 03/12/17 (3) Acute and chronic respiratory failure Assessment & Plan: due to the above, improved, S/P mechanical ventilation , monitor CXR (4) Chronic respiratory failure Assessment & Plan: S/P Trach, continue trach care , titrate O2 as needed (5) Acute abdominal pain Assessment & Plan: CT abdomen didn't show any abdominal pathology , further management as per primary team (6) UTI (urinary tract infection) Assessment & Plan: with MDR Acinetobacter baumannii , on meropenem for 10 days Subjective ROS Limited/Unobtainable: Yes Allergies: Coded Allergies: No Known Allergies (Unverified , 02/27/17) Subjective he was awake and alert, communicating by nodding his head, afebrile. not on pressors. Objective Vital Signs Last 24 Hour Vital Signs Date Time Temp Pulse Resp B/P Pulse Ox O2 Delivery O2 Flow Rate FiO2 03/07/17 16:36 43 15 35 03/07/17 16:00 96.6 44 18 143/69 99 Mechanical Ventilator 35 03/07/17 15:05 47 16 35 03/07/17 12:59 42 16 35 03/07/17 12:00 35 03/07/17 12:00 53 03/07/17 11:54 97.5 52 18 117/54 98 Mechanical Ventilator 35 03/07/17 10:56 54 16 35 03/07/17 09:00 53 16 35 03/07/17 08:00 56 03/07/17 08:00 35 03/07/17 07:42 98.1 59 18 117/61 98 Mechanical Ventilator 35 03/07/17 07:00 62 16 35 03/07/17 05:34 71 19 35 03/07/17 04:00 97.7 65 17 104/40 97 Mechanical Ventilator 35 03/07/17 04:00 35 03/07/17 04:00 67 03/07/17 03:03 70 16 35 03/07/17 00:45 70 18 35 03/07/17 00:00 98.6 68 20 96/46 99 Mechanical Ventilator 35 03/07/17 00:00 35 03/07/17 00:00 72 03/06/17 22:43 68 19 35 03/06/17 21:02 65 19 35 03/06/17 20:00 35 03/06/17 20:00 65 03/06/17 20:00 98.9 69 20 153/69 99 Mechanical Ventilator 35 03/06/17 18:54 60 20 35 03/06/17 17:02 65 20 35 Height (Feet): 5 Height (Inches): 4.00 Weight (Pounds): 180 General Appearance: WD/WN, no acute distress HEENT: normocephalic, atraumatic, anicteric, mucous membranes moist, status post trach Respiratory/Chest: normal breath sounds, no respiratory distress, no accessory muscle use, decreased breath sounds Cardiovascular: normal peripheral pulses, normal rate, regular rhythm, no gallop/murmur, no JVD Abdomen: normal bowel sounds, soft, non tender, no organomegaly, non distended , no mass, no scars Extremities: no cyanosis, no clubbing Skin: no rash, no lesions, no ulcers Lymphatic: no neck adenopathy Laboratory Tests Test 03/07/17 07:25 White Blood Count 10.3 K/UL (4.8-10.8) Red Blood Count 4.06 M/UL (4.70-6.10) L Hemoglobin 12.9 G/DL (14.2-18.0) L Hematocrit 39.3 % (42.0-52.0) L Mean Corpuscular Volume 97 FL (80-99) Mean Corpuscular Hemoglobin 31.7 PG (27.0-31.0) H Mean Corpuscular Hemoglobin Concent 32.8 G/DL (32.0-36.0) Red Cell Distribution Width 13.1 % (11.6-14.8) Platelet Count 163 K/UL (150-450) Mean Platelet Volume 10.4 FL (6.5-10.1) H Neutrophils (%) (Auto) 72.3 % (45.0-75.0) Lymphocytes (%) (Auto) 17.0 % (20.0-45.0) L Monocytes (%) (Auto) 7.3 % (1.0-10.0) Eosinophils (%) (Auto) 2.5 % (0.0-3.0) Basophils (%) (Auto) 0.9 % (0.0-2.0) Sodium Level 137 mEQ/L (135-145) Potassium Level 3.9 mEQ/L (3.4-4.9) Chloride Level 103 mEQ/L (98-107) Carbon Dioxide Level 24 mEQ/L (20-30) Anion Gap 10 (5-15) Blood Urea Nitrogen 12 mg/dL (7-23) Creatinine 0.6 mg/dL (0.7-1.2) L Estimat Glomerular Filtration Rate mL/min (>60) Glucose Level 139 mg/dL (74-106) H Calcium Level 8.4 mg/dL (8.6-10.2) L Phosphorus Level 2.8 mg/dL (2.5-4.8) Current Medications Medications (Trade) Dose Ordered Sig/Kevin Route PRN Reason Start Time Stop Time Status Last Admin Dose Admin Acetaminophen (Tylenol) 650 mg Q4H PRN GT Mild Pain/Temp > 100.5 03/03/17 22:45 04/02/17 22:44 Albuterol/ Ipratropium 3 ml 3 ml Q4H PRN HHN Shortness of Breath 03/02/17 13:45 03/07/17 23:59 Dextrose (Dextrose 50%) STAT PRN IV Hypoglycemia 02/27/17 13:45 03/29/17 13:44 Docusate Sodium (Colace) 100 mg THREE TIMES A DAY GT 03/04/17 09:00 04/03/17 08:59 03/06/17 09:22 Heparin Sodium (Porcine) (Heparin 5000 units/ml) 5,000 units EVERY 12 HOURS SUBQ 02/27/17 21:00 03/29/17 20:59 03/07/17 08:37 Lansoprazole (Prevacid) 30 mg DAILY GT 03/01/17 09:00 03/31/17 08:59 03/07/17 08:34 Levothyroxine Sodium (Synthroid) 75 mcg ACBREAKFAST GT 03/02/17 06:30 04/01/17 06:29 03/07/17 06:18 Meropenem/Sodium Chloride (Merrem/Sodium Chloride) 110 ml @ 220 mls/hr Q12HR@0800,2000 IVPB 03/03/17 20:00 03/08/17 19:59 03/07/17 07:49 Ondansetron HCl (Zofran) 4 mg Q6H PRN IVP Nausea & Vomiting 02/27/17 13:45 03/29/17 13:44 Polyethylene Glycol (Miralax) 17 gm BEDTIME GT 02/28/17 21:00 03/30/17 20:59 03/05/17 21:20 Polyethylene Glycol 17 gm 17 gm DAILYPRN PRN GT Constipation 03/01/17 14:44 03/29/17 13:44 Sodium Chloride (Sodium Chloride 1000ml bag) 1,000 ml @ 50 mls/hr Q20H IV 03/01/17 22:10 03/31/17 22:09 03/07/17 14:21 Vancomycin HCl (Vanco rx to dose) 1 ea DAILY PRN MISC . 02/27/17 20:15 03/29/17 20:14 Vancomycin HCl 750 mg/Dextrose 275 ml @ 183.333 mls/hr Q12HR IVPB 03/03/17 09:00 03/08/17 08:59 03/07/17 08:34 Papito Don M.D. Mar 07, 2017 16:48
[2017-03-07 20:00] VITALS: BP 136/67
[2017-03-07] MEDS: Miralax 17gm pkt GT SCH (20:28)
[2017-03-08] VITALS (7 sets, daily range): BP systolic 131–150; BP diastolic 56–73
--- NOTE | 2017-03-08 04:30 | Progress Note ---
CARDIOLOGY PROGRESS NOTE Late entry for 03/06/2017. SUBJECTIVE: The patient is on ventilator support via tracheostomy. He is awake and alert. Moderate secretions and congestion noted at times. Monitored rhythm, sinus bradycardia. No pauses. No recurring junctional episode. OBJECTIVE: VITAL SIGNS: Blood pressure 138/69, pulse 45, and respirations 16. LUNGS: Bilateral breath sounds. Few rhonchi. HEART: Regular rhythm. Slow rate. Normal S1 and S2. ABDOMEN: Soft. No edema. LABORATORY DATA: White count 8.7 and hemoglobin 11.9. Sodium 137, potassium 3.7, bicarbonate 24, BUN 12, and creatinine 0.5. Phosphorus 1.9. Magnesium 1.9. Albumin 2.6. IMPRESSION: 1. Sinus bradycardia. 2. Conduction system disease. 3. Episodes of junctional bradycardia. 4. Hemodynamically significant bradyarrhythmias. 5. Chronic diastolic congestive heart failure. 6. Tracheostomy with chronic respiratory failure. 7. Healthcare-acquired pneumonia. 8. Urinary tract infection. 9. Sepsis. 10. Hypophosphatemia. PLAN: 1. No urgent indication for permanent pacemaker. 2. EP consultation pending. 3. Continue antibiotics ventilator support. 4. Replace phosphorus. 5. Respiratory hygiene. Vikram Mari M.D. DR: TEVIN JOB#: [id number] CC:
[2017-03-08 06:41] LABS: BASOPHILS % (AUTO) 0.6 % (0.0-2.0); EOSINOPHILS % (AUTO) 4.3 % (0.0-3.0); MEAN CORPUSCULAR HEMOGLOBIN 32.2 PG (27.0-31.0); MEAN CORPUSCULAR HGB CONC 33.1 G/DL (32.0-36.0); MEAN CORPUSCULAR VOLUME 97 FL (80-99); MEAN PLATELET VOLUME 10.7 FL (6.5-10.1); MONOCYTES % (AUTO) 6.8 % (1.0-10.0); NEUTROPHILS % (AUTO) 70.3 % (45.0-75.0); PLATELET COUNT 161 K/UL (150-450); RED BLOOD COUNT 3.54 M/UL (4.70-6.10); RED CELL DISTRIBUTION WIDTH 13.4 % (11.6-14.8); WHITE BLOOD COUNT 8.8 K/UL (4.8-10.8)
[2017-03-08 07:05] LABS: MAGNESIUM 2.3 mg/dL (1.7-2.5); PHOSPHORUS 2.4 mg/dL (2.5-4.8)
[2017-03-08 07:09] LABS: ALANINE AMINOTRANSFERASE 29 U/L (3-41); ALBUMIN/GLOBULIN RATIO 0.9 (1.0-2.7); ANION GAP 10 (5-15); ASPARTATE AMINO TRANSFERASE 18 U/L (5-40); CALCIUM 8.4 mg/dL (8.6-10.2); CARBON DIOXIDE 23 mEQ/L (20-30); CHLORIDE 105 mEQ/L (98-107); CREATININE 0.6 mg/dL (0.7-1.2); HEMOLYSIS 10; POTASSIUM 3.9 mEQ/L (3.4-4.9); SODIUM 138 mEQ/L (135-145); TOTAL PROTEIN 5.5 g/dL (6.6-8.7)
[2017-03-08] MEDS: Meropenem 1 GM in NS 110 ML IVPB SCH ×2 (08:31→20:00)
[2017-03-08] MEDS: Docusate 100mg/10ml Liq GT SCH ×3 (08:33→17:38)
[2017-03-08] MEDS: Heparin 5000 units/ml inj SUBQ SCH ×2 (08:38→21:18)
--- NOTE | 2017-03-08 08:52 | General Progress Note ---
Assessment/Plan Problem List: (1) Chronic respiratory failure ICD Codes: J96.10 - Chronic respiratory failure, unspecified whether with hypoxia or hypercapnia SNOMED: 61516326 (2) Aspiration pneumonia ICD Codes: J69.0 - Pneumonitis due to inhalation of food and vomit SNOMED: 491122581 (3) Sepsis ICD Codes: A41.9 - Sepsis, unspecified organism SNOMED: 14705554 (4) Acute and chronic respiratory failure ICD Codes: J96.20 - Acute and chronic respiratory failure, unspecified whether with hypoxia or hypercapnia SNOMED: 06271090, 33757877 (5) Bradycardia ICD Codes: R00.1 - Bradycardia, unspecified SNOMED: 79143168 (6) Acute abdominal pain ICD Codes: R10.9 - Unspecified abdominal pain SNOMED: 103665707 Status: stable, progressing, tolerating diet Assessment/Plan vent abx gi eval ot pt diet dc if clear by id and pulm Subjective Constitutional: Reports: weakness Allergies: Coded Allergies: No Known Allergies (Unverified , 02/27/17) All Systems: reviewed and negative except above Subjective trach vent altered Objective Last 24 Hour Vital Signs Date Time Temp Pulse Resp B/P Pulse Ox O2 Delivery O2 Flow Rate FiO2 03/08/17 08:29 97.0 46 16 149/63 99 Mechanical Ventilator 03/08/17 08:16 55 16 35 03/08/17 05:03 51 16 35 03/08/17 04:00 98.1 44 18 131/56 99 Mechanical Ventilator 03/08/17 04:00 35 03/08/17 04:00 48 03/08/17 03:02 43 16 35 03/08/17 01:19 40 16 35 03/08/17 00:00 42 03/08/17 00:00 35 03/08/17 00:00 97.7 50 18 150/56 100 Mechanical Ventilator 03/07/17 22:45 48 16 35 03/07/17 21:13 45 16 35 03/07/17 20:00 53 03/07/17 20:00 97.3 48 20 136/67 98 Mechanical Ventilator 35 03/07/17 19:19 50 16 35 03/07/17 16:36 43 15 35 03/07/17 16:00 50 03/07/17 16:00 96.6 44 18 143/69 99 Mechanical Ventilator 35 03/07/17 16:00 35 03/07/17 15:05 47 16 35 03/07/17 12:59 42 16 35 03/07/17 12:00 35 03/07/17 12:00 53 03/07/17 11:54 97.5 52 18 117/54 98 Mechanical Ventilator 35 03/07/17 10:56 54 16 35 03/07/17 09:00 53 16 35 Intake and Output 03/07/17 03/08/17 19:00 07:00 Intake Total 1896.666 ml 1676.666 ml Output Total 600 ml 450 ml Balance 1296.666 ml 1226.666 ml Free Water 100 ml 50 ml IV Total 1076.666 ml 1026.666 ml Tube Feeding 720 ml 600 ml Output Urine Total 600 ml 450 ml # Bowel Movements 2 2 Laboratory Tests 03/08/17 05:41: White Blood Count 8.8, Red Blood Count 3.54L, Hemoglobin 11.4L, Hematocrit 34.4L , Mean Corpuscular Volume 97, Mean Corpuscular Hemoglobin 32.2H, Mean Corpuscular Hemoglobin Concent 33.1, Red Cell Distribution Width 13.4, Platelet Count 161, Mean Platelet Volume 10.7H, Neutrophils (%) (Auto) 70.3, Lymphocytes (%) (Auto) 18.0L, Monocytes (%) (Auto) 6.8, Eosinophils (%) (Auto) 4.3H, Basophils (%) (Auto) 0.6, Sodium Level 138, Potassium Level 3.9, Chloride Level 105, Carbon Dioxide Level 23, Anion Gap 10, Blood Urea Nitrogen 13, Creatinine 0.6L, Estimat Glomerular Filtration Rate , Glucose Level 136H, Calcium Level 8.4L, Phosphorus Level 2.4L, Magnesium Level 2.3, Total Bilirubin 0.4, Aspartate Amino Transf (AST/SGOT) 18, Alanine Aminotransferase (ALT/SGPT) 29, Alkaline Phosphatase 59, Total Protein 5.5L, Albumin 2.7L, Globulin 2.8, Albumin /Globulin Ratio 0.9L Height (Feet): 5 Height (Inches): 4.00 Weight (Pounds): 180 General Appearance: lethargic EENT: normal ENT inspection Neck: normal alignment Cardiovascular: normal peripheral pulses, normal rate, regular rhythm Respiratory/Chest: chest wall non-tender, lungs clear, normal breath sounds Abdomen: normal bowel sounds, non tender, soft Extremities: normal inspection Edema: no edema noted Arm (L), no edema noted Arm (R), no edema noted Leg (L), no edema noted Leg (R), no edema noted Pedal (L), no edema noted Pedal (R), no edema noted Generalized Neurologic: motor weakness Skin: normal pigmentation, warm/dry KOBE HERNANDEZ Mar 08, 2017 08:52
[2017-03-08] MEDS ORDERED: NS 275ml ONE (09:01)
--- NOTE | 2017-03-08 10:02 | Pulmonology Progress Note ---
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 Subjective ROS Limited/Unobtainable: No Constitutional: Reports: no symptoms HEENT: Repors: no symptoms Respiratory: Reports: no symptoms Cardiovascular: Reports: no symptoms Allergies: Coded Allergies: No Known Allergies (Unverified , 02/27/17) Objective Last 24 Hour Vital Signs Date Time Temp Pulse Resp B/P Pulse Ox O2 Delivery O2 Flow Rate FiO2 03/08/17 09:23 44 16 35 03/08/17 08:29 97.0 46 16 149/63 99 Mechanical Ventilator 35 03/08/17 08:16 55 16 35 03/08/17 05:03 51 16 35 03/08/17 04:00 98.1 44 18 131/56 99 Mechanical Ventilator 03/08/17 04:00 35 03/08/17 04:00 48 03/08/17 03:02 43 16 35 03/08/17 01:19 40 16 35 03/08/17 00:00 42 03/08/17 00:00 35 03/08/17 00:00 97.7 50 18 150/56 100 Mechanical Ventilator 35 03/07/17 22:45 48 16 35 03/07/17 21:13 45 16 35 03/07/17 20:00 53 03/07/17 20:00 97.3 48 20 136/67 98 Mechanical Ventilator 35 03/07/17 19:19 50 16 35 03/07/17 16:36 43 15 35 03/07/17 16:00 50 03/07/17 16:00 96.6 44 18 143/69 99 Mechanical Ventilator 35 03/07/17 16:00 35 03/07/17 15:05 47 16 35 03/07/17 12:59 42 16 35 03/07/17 12:00 35 03/07/17 12:00 53 03/07/17 11:54 97.5 52 18 117/54 98 Mechanical Ventilator 35 03/07/17 10:56 54 16 35 Intake and Output 03/07/17 03/08/17 19:00 07:00 Intake Total 1896.666 ml 1676.666 ml Output Total 600 ml 450 ml Balance 1296.666 ml 1226.666 ml Free Water 100 ml 50 ml IV Total 1076.666 ml 1026.666 ml Tube Feeding 720 ml 600 ml Output Urine Total 600 ml 450 ml # Bowel Movements 2 2 General Appearance: WD/WN HEENT: normocephalic Respiratory/Chest: chest wall non-tender Cardiovascular: normal peripheral pulses Abdomen: normal bowel sounds Genitourinary: normal external genitalia Skin: no rash Laboratory Tests 03/08/17 05:41: White Blood Count 8.8, Red Blood Count 3.54L, Hemoglobin 11.4L, Hematocrit 34.4L , Mean Corpuscular Volume 97, Mean Corpuscular Hemoglobin 32.2H, Mean Corpuscular Hemoglobin Concent 33.1, Red Cell Distribution Width 13.4, Platelet Count 161, Mean Platelet Volume 10.7H, Neutrophils (%) (Auto) 70.3, Lymphocytes (%) (Auto) 18.0L, Monocytes (%) (Auto) 6.8, Eosinophils (%) (Auto) 4.3H, Basophils (%) (Auto) 0.6, Sodium Level 138, Potassium Level 3.9, Chloride Level 105, Carbon Dioxide Level 23, Anion Gap 10, Blood Urea Nitrogen 13, Creatinine 0.6L, Estimat Glomerular Filtration Rate , Glucose Level 136H, Calcium Level 8.4L, Phosphorus Level 2.4L, Magnesium Level 2.3, Total Bilirubin 0.4, Aspartate Amino Transf (AST/SGOT) 18, Alanine Aminotransferase (ALT/SGPT) 29, Alkaline Phosphatase 59, Total Protein 5.5L, Albumin 2.7L, Globulin 2.8, Albumin /Globulin Ratio 0.9L Current Medications Medications (Trade) Dose Ordered Sig/Kevin Route PRN Reason Start Time Stop Time Status Last Admin Dose Admin Acetaminophen 650 mg 650 mg Q4H PRN GT Mild Pain/Temp > 100.5 03/03/17 22:45 04/02/17 22:44 Dextrose (Dextrose 50%) STAT PRN IV Hypoglycemia 02/27/17 13:45 03/29/17 13:44 Docusate Sodium (Colace) 100 mg THREE TIMES A DAY GT 03/04/17 09:00 04/03/17 08:59 03/06/17 09:22 Heparin Sodium (Porcine) (Heparin 5000 units/ml) 5,000 units EVERY 12 HOURS SUBQ 02/27/17 21:00 03/29/17 20:59 03/08/17 08:38 Lansoprazole (Prevacid) 30 mg DAILY GT 03/01/17 09:00 03/31/17 08:59 03/08/17 08:31 Levothyroxine Sodium 75 mcg 75 mcg ACBREAKFAST GT 03/02/17 06:30 04/01/17 06:29 03/08/17 05:21 Meropenem/Sodium Chloride (Merrem/Sodium Chloride) 110 ml @ 220 mls/hr Q12HR@0800,2000 IVPB 03/03/17 20:00 03/12/17 19:59 03/08/17 08:31 Ondansetron HCl (Zofran) 4 mg Q6H PRN IVP Nausea & Vomiting 02/27/17 13:45 03/29/17 13:44 Polyethylene Glycol (Miralax) 17 gm BEDTIME GT 02/28/17 21:00 03/30/17 20:59 03/05/17 21:20 Polyethylene Glycol 17 gm 17 gm DAILYPRN PRN GT Constipation 03/01/17 14:44 03/29/17 13:44 Sodium Chloride (Sodium Chloride 1000ml bag) 1,000 ml @ 50 mls/hr Q20H IV 03/01/17 22:10 03/31/17 22:09 03/08/17 06:00 Vancomycin HCl (Vanco rx to dose) 1 ea DAILY PRN MISC . 02/27/17 20:15 03/29/17 20:14 Vancomycin HCl/ Dextrose (Vancomycin/D5W) 275 ml @ 183.333 mls/hr Q12HR@1000,2200 IVPB 03/08/17 10:00 03/13/17 09:59 CRISTIAN HURLEY Mar 08, 2017 10:02
[2017-03-08] MEDS: Vancomycin 750 MG in D5W 275 ML IVPB SCH ×2 (11:13→22:00)
--- NOTE | 2017-03-08 12:31 | General Progress Note ---
Assessment/Plan Problem List: (1) Anemia ICD Codes: D64.9 - Anemia, unspecified SNOMED: 660162104 (2) Chronic respiratory failure ICD Codes: J96.10 - Chronic respiratory failure, unspecified whether with hypoxia or hypercapnia SNOMED: 23826904 (3) Constipation ICD Codes: K59.00 - Constipation, unspecified SNOMED: 16975211 (4) Hypoalbuminemia ICD Codes: E88.09 - Other disorders of plasma-protein metabolism, not elsewhere classified SNOMED: 379637893 (5) UTI (urinary tract infection) ICD Codes: N39.0 - Urinary tract infection, site not specified SNOMED: 12211207 Assessment/Plan supportive care GTFs per dietary >> Jevity 1.2 @60ml bowel regime >> colace + miralax monitor H&H, transfuse prn check stool ob >>> negative prevacid GT fu labs Subjective ROS Limited/Unobtainable: No Allergies: Coded Allergies: No Known Allergies (Unverified , 02/27/17) Objective Last 24 Hour Vital Signs Date Time Temp Pulse Resp B/P Pulse Ox O2 Delivery O2 Flow Rate FiO2 03/08/17 12:00 35 03/08/17 12:00 97.5 49 20 149/73 99 Mechanical Ventilator 35 03/08/17 11:20 45 16 35 03/08/17 09:23 44 16 35 03/08/17 08:29 97.0 46 16 149/63 99 Mechanical Ventilator 35 03/08/17 08:16 55 16 35 03/08/17 08:00 35 03/08/17 08:00 45 03/08/17 05:03 51 16 35 03/08/17 04:00 98.1 44 18 131/56 99 Mechanical Ventilator 35 03/08/17 04:00 35 03/08/17 04:00 48 03/08/17 03:02 43 16 35 03/08/17 01:19 40 16 35 03/08/17 00:00 42 03/08/17 00:00 35 03/08/17 00:00 97.7 50 18 150/56 100 Mechanical Ventilator 35 03/07/17 22:45 48 16 35 03/07/17 21:13 45 16 35 03/07/17 20:00 53 03/07/17 20:00 97.3 48 20 136/67 98 Mechanical Ventilator 35 03/07/17 19:19 50 16 35 03/07/17 16:36 43 15 35 03/07/17 16:00 50 03/07/17 16:00 96.6 44 18 143/69 99 Mechanical Ventilator 35 03/07/17 16:00 35 03/07/17 15:05 47 16 35 03/07/17 12:59 42 16 35 Intake and Output 03/07/17 03/08/17 19:00 07:00 Intake Total 1896.666 ml 1676.666 ml Output Total 600 ml 450 ml Balance 1296.666 ml 1226.666 ml Free Water 100 ml 50 ml IV Total 1076.666 ml 1026.666 ml Tube Feeding 720 ml 600 ml Output Urine Total 600 ml 450 ml # Bowel Movements 2 2 Laboratory Tests 03/08/17 05:41: White Blood Count 8.8, Red Blood Count 3.54L, Hemoglobin 11.4L, Hematocrit 34.4L , Mean Corpuscular Volume 97, Mean Corpuscular Hemoglobin 32.2H, Mean Corpuscular Hemoglobin Concent 33.1, Red Cell Distribution Width 13.4, Platelet Count 161, Mean Platelet Volume 10.7H, Neutrophils (%) (Auto) 70.3, Lymphocytes (%) (Auto) 18.0L, Monocytes (%) (Auto) 6.8, Eosinophils (%) (Auto) 4.3H, Basophils (%) (Auto) 0.6, Sodium Level 138, Potassium Level 3.9, Chloride Level 105, Carbon Dioxide Level 23, Anion Gap 10, Blood Urea Nitrogen 13, Creatinine 0.6L, Estimat Glomerular Filtration Rate , Glucose Level 136H, Calcium Level 8.4L, Phosphorus Level 2.4L, Magnesium Level 2.3, Total Bilirubin 0.4, Aspartate Amino Transf (AST/SGOT) 18, Alanine Aminotransferase (ALT/SGPT) 29, Alkaline Phosphatase 59, Total Protein 5.5L, Albumin 2.7L, Globulin 2.8, Albumin /Globulin Ratio 0.9L Height (Feet): 5 Height (Inches): 4.00 Weight (Pounds): 180 General Appearance: no apparent distress EENT: normal ENT inspection Neck: supple Cardiovascular: normal rate Respiratory/Chest: decreased breath sounds Abdomen: normal bowel sounds, non tender, soft Extremities: non-tender VOSOGHI,AMAIRANI Mar 08, 2017 12:31
--- NOTE | 2017-03-08 13:15 | Progress Note ---
DATE: 03/07/2017 CARDIOLOGY PROGRESS NOTE SUBJECTIVE: The patient with ventilator support and using tracheostomy. Secretions are decreasing. He is on IV antibiotics and pressors. Blood pressure range remains stable. Monitored rhythm sinus, sinus bradycardia, no junctional bradycardia for several days. OBJECTIVE: VITAL SIGNS: Blood pressure 117/54, pulse 62, respirations 18, and afebrile. NECK: Thin trach secretion. LUNGS: Few rhonchi. CARDIAC: Regular rhythm. Slow rate. Normal S1 and S2. ABDOMEN: Soft. EXTREMITIES: No edema. LABORATORY DATA: Sodium 137, potassium 3.9, bicarbonate 24, BUN 12, and creatinine 0.6. Phosphorus is 2.8. White count 10.3 and hemoglobin 12.9. IMPRESSION: 1. Respiratory failure with tracheostomy. 2. Conduction system disease with bradyarrhythmias. 3. Sinus node disease. 4. Hypertensive heart disease. 5. Healthcare-acquired pneumonia. 6. Urinary tract infection. 7. Sepsis. PLAN: EP consultation tomorrow regarding timing of permanent pacemaker if indicated. Presently, there is no urgency and the patient has active infection. The patient is nonambulatory and bed bound. No acute indication clear. The patient's blood pressure is adequately controlled. There are no signs of acute congestive heart failure and he will continue on antimicrobial therapy and ventilator support. Vikram Mari M.D. DR: BERTRAM JOB#: [id number] CC:
--- NOTE | 2017-03-08 14:16 | Infectious Diseases Prog Note ---
Assessment/Plan Problems: (1) Sepsis Assessment & Plan: due to pneumonia and UTI, on vancomycin and meropenem , blood culture is negative (2) Aspiration pneumonia Assessment & Plan: due to serratia marcescens, continue meropenem and vancomycin for 10 days EOT 03/12/17 (3) Acute and chronic respiratory failure Assessment & Plan: due to the above, improved, S/P mechanical ventilation , monitor CXR (4) Chronic respiratory failure Assessment & Plan: S/P Trach, continue trach care , titrate O2 as needed (5) Acute abdominal pain Assessment & Plan: CT abdomen didn't show any abdominal pathology , further management as per primary team (6) UTI (urinary tract infection) Assessment & Plan: with MDR Acinetobacter baumannii , on meropenem for 10 days Subjective ROS Limited/Unobtainable: Yes Allergies: Coded Allergies: No Known Allergies (Unverified , 02/27/17) Subjective he was awake and alert, communicating by nodding his head, afebrile. not on pressors. Objective Vital Signs Last 24 Hour Vital Signs Date Time Temp Pulse Resp B/P Pulse Ox O2 Delivery O2 Flow Rate FiO2 03/08/17 13:28 53 16 35 03/08/17 12:00 35 03/08/17 12:00 97.5 49 20 149/73 99 Mechanical Ventilator 03/08/17 11:56 51 03/08/17 11:20 45 16 35 03/08/17 09:23 44 16 35 03/08/17 08:29 97.0 46 16 149/63 99 Mechanical Ventilator 35 03/08/17 08:16 55 16 35 03/08/17 08:00 35 03/08/17 08:00 45 03/08/17 05:03 51 16 35 03/08/17 04:00 98.1 44 18 131/56 99 Mechanical Ventilator 03/08/17 04:00 35 03/08/17 04:00 48 03/08/17 03:02 43 16 35 03/08/17 01:19 40 16 35 03/08/17 00:00 42 03/08/17 00:00 35 03/08/17 00:00 97.7 50 18 150/56 100 Mechanical Ventilator 35 03/07/17 22:45 48 16 35 03/07/17 21:13 45 16 35 03/07/17 20:00 53 03/07/17 20:00 97.3 48 20 136/67 98 Mechanical Ventilator 35 03/07/17 19:19 50 16 35 03/07/17 16:36 43 15 35 03/07/17 16:00 50 03/07/17 16:00 96.6 44 18 143/69 99 Mechanical Ventilator 35 03/07/17 16:00 35 03/07/17 15:05 47 16 35 Height (Feet): 5 Height (Inches): 4.00 Weight (Pounds): 180 General Appearance: WD/WN, no acute distress HEENT: normocephalic, atraumatic, anicteric, mucous membranes moist, supple, status post trach Respiratory/Chest: chest wall non-tender, lungs clear, normal breath sounds, no respiratory distress, no accessory muscle use Cardiovascular: normal peripheral pulses, normal rate, regular rhythm, no gallop/murmur, no JVD Abdomen: normal bowel sounds, soft, non tender, no organomegaly, non distended , no mass, no scars Extremities: no cyanosis, no clubbing Skin: no rash, no lesions, no ulcers Lymphatic: no neck adenopathy, no groin adenopathy Laboratory Tests Test 03/08/17 05:41 White Blood Count 8.8 K/UL (4.8-10.8) Red Blood Count 3.54 M/UL (4.70-6.10) L Hemoglobin 11.4 G/DL (14.2-18.0) L Hematocrit 34.4 % (42.0-52.0) L Mean Corpuscular Volume 97 FL (80-99) Mean Corpuscular Hemoglobin 32.2 PG (27.0-31.0) H Mean Corpuscular Hemoglobin Concent 33.1 G/DL (32.0-36.0) Red Cell Distribution Width 13.4 % (11.6-14.8) Platelet Count 161 K/UL (150-450) Mean Platelet Volume 10.7 FL (6.5-10.1) H Neutrophils (%) (Auto) 70.3 % (45.0-75.0) Lymphocytes (%) (Auto) 18.0 % (20.0-45.0) L Monocytes (%) (Auto) 6.8 % (1.0-10.0) Eosinophils (%) (Auto) 4.3 % (0.0-3.0) H Basophils (%) (Auto) 0.6 % (0.0-2.0) Sodium Level 138 mEQ/L (135-145) Potassium Level 3.9 mEQ/L (3.4-4.9) Chloride Level 105 mEQ/L (98-107) Carbon Dioxide Level 23 mEQ/L (20-30) Anion Gap 10 (5-15) Blood Urea Nitrogen 13 mg/dL (7-23) Creatinine 0.6 mg/dL (0.7-1.2) L Estimat Glomerular Filtration Rate mL/min (>60) Glucose Level 136 mg/dL (74-106) H Calcium Level 8.4 mg/dL (8.6-10.2) L Phosphorus Level 2.4 mg/dL (2.5-4.8) L Magnesium Level 2.3 mg/dL (1.7-2.5) Total Bilirubin 0.4 mg/dL (0.0-1.2) Aspartate Amino Transf (AST/SGOT) 18 U/L (5-40) Alanine Aminotransferase (ALT/SGPT) 29 U/L (3-41) Alkaline Phosphatase 59 U/L (40-129) Total Protein 5.5 g/dL (6.6-8.7) L Albumin 2.7 g/dL (3.5-5.2) L Globulin 2.8 g/dL Albumin/Globulin Ratio 0.9 (1.0-2.7) L Current Medications Medications (Trade) Dose Ordered Sig/Kevin Route PRN Reason Start Time Stop Time Status Last Admin Dose Admin Acetaminophen 650 mg 650 mg Q4H PRN GT Mild Pain/Temp > 100.5 03/03/17 22:45 04/02/17 22:44 Dextrose (Dextrose 50%) STAT PRN IV Hypoglycemia 02/27/17 13:45 03/29/17 13:44 Docusate Sodium (Colace) 100 mg THREE TIMES A DAY GT 03/04/17 09:00 04/03/17 08:59 03/06/17 09:22 Heparin Sodium (Porcine) (Heparin 5000 units/ml) 5,000 units EVERY 12 HOURS SUBQ 02/27/17 21:00 03/29/17 20:59 03/08/17 08:38 Lansoprazole (Prevacid) 30 mg DAILY GT 03/01/17 09:00 03/31/17 08:59 03/08/17 08:31 Levothyroxine Sodium 75 mcg 75 mcg ACBREAKFAST GT 03/02/17 06:30 04/01/17 06:29 03/08/17 05:21 Meropenem/Sodium Chloride (Merrem/Sodium Chloride) 110 ml @ 220 mls/hr Q12HR@0800,2000 IVPB 03/03/17 20:00 03/12/17 19:59 03/08/17 08:31 Ondansetron HCl (Zofran) 4 mg Q6H PRN IVP Nausea & Vomiting 02/27/17 13:45 03/29/17 13:44 Polyethylene Glycol (Miralax) 17 gm BEDTIME GT 02/28/17 21:00 03/30/17 20:59 03/05/17 21:20 Polyethylene Glycol 17 gm 17 gm DAILYPRN PRN GT Constipation 03/01/17 14:44 03/29/17 13:44 Sodium Chloride (Sodium Chloride 1000ml bag) 1,000 ml @ 50 mls/hr Q20H IV 03/01/17 22:10 03/31/17 22:09 03/08/17 06:00 Vancomycin HCl (Vanco rx to dose) 1 ea DAILY PRN MISC . 02/27/17 20:15 03/29/17 20:14 Vancomycin HCl/ Dextrose (Vancomycin/D5W) 275 ml @ 183.333 mls/hr Q12HR@1000,2200 IVPB 03/08/17 10:00 03/13/17 09:59 03/08/17 11:13 Papito Don M.D. Mar 08, 2017 14:16
--- NOTE | 2017-03-08 15:07 | Cardiac Electrophysiology PN ---
Assessment/Plan Assessment/Plan 1. Bradyarrhythmias due to Sinus node disease.Likely SSS. Off any GAMBOA or AVN shin. Will continue to monitor on tele.Try to avoid pacer if possible in view of his general condition and HR 40-50s. 2. Hypertensive heart disease. 3. Vent Dependent Respiratory failure with tracheostomy. 4. Healthcare-acquired pneumonia. 5. Urinary tract infection. 6 S/P PEG. DW RN Subjective Subjective In SDU. At times federico down to 40s. On vent via trach. Opens eyes. Nonverbal. Full code. Objective Last 24 Hour Vital Signs Date Time Temp Pulse Resp B/P Pulse Ox O2 Delivery O2 Flow Rate FiO2 03/08/17 13:28 53 16 35 03/08/17 12:00 35 03/08/17 12:00 97.5 49 20 149/73 99 Mechanical Ventilator 35 03/08/17 11:56 51 03/08/17 11:20 45 16 35 03/08/17 09:23 44 16 35 03/08/17 08:29 97.0 46 16 149/63 99 Mechanical Ventilator 35 03/08/17 08:16 55 16 35 03/08/17 08:00 35 03/08/17 08:00 45 03/08/17 05:03 51 16 35 03/08/17 04:00 98.1 44 18 131/56 99 Mechanical Ventilator 35 03/08/17 04:00 35 03/08/17 04:00 48 03/08/17 03:02 43 16 35 03/08/17 01:19 40 16 35 03/08/17 00:00 42 03/08/17 00:00 35 03/08/17 00:00 97.7 50 18 150/56 100 Mechanical Ventilator 35 03/07/17 22:45 48 16 35 03/07/17 21:13 45 16 35 03/07/17 20:00 53 03/07/17 20:00 97.3 48 20 136/67 98 Mechanical Ventilator 35 03/07/17 19:19 50 16 35 03/07/17 16:36 43 15 35 03/07/17 16:00 50 03/07/17 16:00 96.6 44 18 143/69 99 Mechanical Ventilator 35 03/07/17 16:00 35 03/07/17 15:05 47 16 35 Intake and Output 03/07/17 03/08/17 19:00 07:00 Intake Total 1896.666 ml 1676.666 ml Output Total 600 ml 450 ml Balance 1296.666 ml 1226.666 ml Free Water 100 ml 50 ml IV Total 1076.666 ml 1026.666 ml Tube Feeding 720 ml 600 ml Output Urine Total 600 ml 450 ml # Bowel Movements 2 2 Laboratory Tests Test 03/08/17 05:41 White Blood Count 8.8 K/UL (4.8-10.8) Red Blood Count 3.54 M/UL (4.70-6.10) L Hemoglobin 11.4 G/DL (14.2-18.0) L Hematocrit 34.4 % (42.0-52.0) L Mean Corpuscular Volume 97 FL (80-99) Mean Corpuscular Hemoglobin 32.2 PG (27.0-31.0) H Mean Corpuscular Hemoglobin Concent 33.1 G/DL (32.0-36.0) Red Cell Distribution Width 13.4 % (11.6-14.8) Platelet Count 161 K/UL (150-450) Mean Platelet Volume 10.7 FL (6.5-10.1) H Neutrophils (%) (Auto) 70.3 % (45.0-75.0) Lymphocytes (%) (Auto) 18.0 % (20.0-45.0) L Monocytes (%) (Auto) 6.8 % (1.0-10.0) Eosinophils (%) (Auto) 4.3 % (0.0-3.0) H Basophils (%) (Auto) 0.6 % (0.0-2.0) Sodium Level 138 mEQ/L (135-145) Potassium Level 3.9 mEQ/L (3.4-4.9) Chloride Level 105 mEQ/L (98-107) Carbon Dioxide Level 23 mEQ/L (20-30) Anion Gap 10 (5-15) Blood Urea Nitrogen 13 mg/dL (7-23) Creatinine 0.6 mg/dL (0.7-1.2) L Estimat Glomerular Filtration Rate mL/min (>60) Glucose Level 136 mg/dL (74-106) H Calcium Level 8.4 mg/dL (8.6-10.2) L Phosphorus Level 2.4 mg/dL (2.5-4.8) L Magnesium Level 2.3 mg/dL (1.7-2.5) Total Bilirubin 0.4 mg/dL (0.0-1.2) Aspartate Amino Transf (AST/SGOT) 18 U/L (5-40) Alanine Aminotransferase (ALT/SGPT) 29 U/L (3-41) Alkaline Phosphatase 59 U/L (40-129) Total Protein 5.5 g/dL (6.6-8.7) L Albumin 2.7 g/dL (3.5-5.2) L Globulin 2.8 g/dL Albumin/Globulin Ratio 0.9 (1.0-2.7) L Objective NECK: No JVD. Trach site intact. LUNGS: Few rhonchi. CARDIAC: Regular rhythm. Slow rate. Normal S1 and S2. ABDOMEN: Soft.PEG intact EXTREMITIES: No edema. SUSY HUANG Mar 08, 2017 15:07
[2017-03-08] MEDS: Miralax 17gm pkt GT SCH (21:00)
[2017-03-09 04:00] VITALS: BP 121/53
[2017-03-09 05:20] LABS: BASOPHILS % (AUTO) 0.6 % (0.0-2.0); EOSINOPHILS % (AUTO) 2.9 % (0.0-3.0); LYMPHOCYTES % (AUTO) 19.3 % (20.0-45.0); MEAN CORPUSCULAR HEMOGLOBIN 31.5 PG (27.0-31.0); MEAN CORPUSCULAR HGB CONC 32.5 G/DL (32.0-36.0); MEAN CORPUSCULAR VOLUME 97 FL (80-99); MEAN PLATELET VOLUME 9.6 FL (6.5-10.1); MONOCYTES % (AUTO) 3.1 % (1.0-10.0); NEUTROPHILS % (AUTO) 74.1 % (45.0-75.0); PLATELET COUNT 217 K/UL (150-450); RED BLOOD COUNT 3.63 M/UL (4.70-6.10); RED CELL DISTRIBUTION WIDTH 13.1 % (11.6-14.8); WHITE BLOOD COUNT 10.4 K/UL (4.8-10.8)
[2017-03-09 05:33] LABS: ANION GAP 15 (5-15); CALCIUM 8.7 mg/dL (8.6-10.2); CARBON DIOXIDE 23 mEQ/L (20-30); CHLORIDE 104 mEQ/L (98-107); CREATININE 0.5 mg/dL (0.7-1.2); HEMOLYSIS 9; POTASSIUM 4.1 mEQ/L (3.4-4.9); SODIUM 142 mEQ/L (135-145)
--- NOTE | 2017-03-09 07:52 | General Progress Note ---
Assessment/Plan Problem List: (1) Chronic respiratory failure ICD Codes: J96.10 - Chronic respiratory failure, unspecified whether with hypoxia or hypercapnia SNOMED: 77768751 (2) Aspiration pneumonia ICD Codes: J69.0 - Pneumonitis due to inhalation of food and vomit SNOMED: 604232932 (3) Sepsis ICD Codes: A41.9 - Sepsis, unspecified organism SNOMED: 70683928 (4) Acute and chronic respiratory failure ICD Codes: J96.20 - Acute and chronic respiratory failure, unspecified whether with hypoxia or hypercapnia SNOMED: 31653558, 20397231 (5) Bradycardia ICD Codes: R00.1 - Bradycardia, unspecified SNOMED: 23427877 (6) Acute abdominal pain ICD Codes: R10.9 - Unspecified abdominal pain SNOMED: 966179417 Status: stable, progressing, tolerating diet Assessment/Plan vent abx gi eval ot pt diet dc if clear by id and pulm Subjective Constitutional: Reports: weakness Allergies: Coded Allergies: No Known Allergies (Unverified , 02/27/17) All Systems: reviewed and negative except above Subjective trach vent altered Objective Last 24 Hour Vital Signs Date Time Temp Pulse Resp B/P Pulse Ox O2 Delivery O2 Flow Rate FiO2 03/09/17 05:22 56 18 35 03/09/17 04:00 35 03/09/17 04:00 97.7 50 18 121/53 99 Mechanical Ventilator 03/09/17 03:34 66 03/09/17 03:07 63 16 35 03/09/17 02:00 66 03/09/17 01:21 56 16 35 03/09/17 00:00 35 03/08/17 23:20 97.8 66 18 145/67 99 Mechanical Ventilator 03/08/17 22:57 64 19 35 03/08/17 21:05 50 16 35 03/08/17 20:00 60 03/08/17 20:00 97.7 63 20 148/64 99 Mechanical Ventilator 03/08/17 20:00 35 03/08/17 19:28 51 17 35 03/08/17 16:56 57 18 35 03/08/17 16:04 35 03/08/17 16:00 49 03/08/17 16:00 97.5 16 143/68 58 Mechanical Ventilator 03/08/17 14:46 50 16 35 03/08/17 13:28 53 16 35 03/08/17 12:00 35 03/08/17 12:00 97.5 49 20 149/73 99 Mechanical Ventilator 35 03/08/17 11:56 51 03/08/17 11:20 45 16 35 03/08/17 09:23 44 16 35 03/08/17 08:29 97.0 46 16 149/63 99 Mechanical Ventilator 35 03/08/17 08:16 55 16 35 03/08/17 08:00 35 03/08/17 08:00 45 Intake and Output 03/08/17 03/09/17 19:00 07:00 Intake Total 1743.000 ml 1666.666 ml Output Total 1850 ml 1195 ml Balance -107.000 ml 471.666 ml Free Water 150 ml 100 ml IV Total 873.000 ml 1086.666 ml Tube Feeding 720 ml 480 ml Output Urine Total 1850 ml 1195 ml # Bowel Movements 4 2 Laboratory Tests 03/09/17 04:03: White Blood Count 10.4, Red Blood Count 3.63L, Hemoglobin 11.4L, Hematocrit 35.2L, Mean Corpuscular Volume 97, Mean Corpuscular Hemoglobin 31.5H, Mean Corpuscular Hemoglobin Concent 32.5, Red Cell Distribution Width 13.1, Platelet Count 217, Mean Platelet Volume 9.6, Neutrophils (%) (Auto) 74.1, Lymphocytes (% ) (Auto) 19.3L, Monocytes (%) (Auto) 3.1, Eosinophils (%) (Auto) 2.9, Basophils (%) (Auto) 0.6, Sodium Level 142, Potassium Level 4.1, Chloride Level 104, Carbon Dioxide Level 23, Anion Gap 15, Blood Urea Nitrogen 11, Creatinine 0.5L, Estimat Glomerular Filtration Rate , Glucose Level 129H, Calcium Level 8.7 Height (Feet): 5 Height (Inches): 4.00 Weight (Pounds): 180 General Appearance: lethargic EENT: normal ENT inspection Neck: normal alignment Cardiovascular: normal peripheral pulses, normal rate, regular rhythm Respiratory/Chest: chest wall non-tender, lungs clear, normal breath sounds Abdomen: normal bowel sounds, non tender, soft Extremities: normal inspection Edema: no edema noted Arm (L), no edema noted Arm (R), no edema noted Leg (L), no edema noted Leg (R), no edema noted Pedal (L), no edema noted Pedal (R), no edema noted Generalized Neurologic: motor weakness Skin: normal pigmentation, warm/dry KOBE HERNANDEZ Mar 09, 2017 07:52
[2017-03-09 08:00] VITALS: BP 128/50
[2017-03-09] MEDS: Meropenem 1 GM in NS 110 ML IVPB SCH ×2 (08:12→20:32)
[2017-03-09] MEDS: Docusate 100mg/10ml Liq GT SCH ×3 (08:14→18:00)
[2017-03-09] MEDS: Heparin 5000 units/ml inj SUBQ SCH ×2 (08:14→20:32)
--- NOTE | 2017-03-09 09:04 | General Progress Note ---
Assessment/Plan Problem List: (1) Anemia ICD Codes: D64.9 - Anemia, unspecified SNOMED: 940704753 (2) Chronic respiratory failure ICD Codes: J96.10 - Chronic respiratory failure, unspecified whether with hypoxia or hypercapnia SNOMED: 15717473 (3) Constipation ICD Codes: K59.00 - Constipation, unspecified SNOMED: 92521180 (4) Hypoalbuminemia ICD Codes: E88.09 - Other disorders of plasma-protein metabolism, not elsewhere classified SNOMED: 795017668 (5) UTI (urinary tract infection) ICD Codes: N39.0 - Urinary tract infection, site not specified SNOMED: 42562988 Assessment/Plan supportive care GTFs per dietary >> Jevity 1.2 @60ml bowel regime >> colace + miralax monitor H&H, transfuse prn check stool ob >>> negative prevacid GT fu labs Subjective ROS Limited/Unobtainable: No Allergies: Coded Allergies: No Known Allergies (Unverified , 02/27/17) Objective Last 24 Hour Vital Signs Date Time Temp Pulse Resp B/P Pulse Ox O2 Delivery O2 Flow Rate FiO2 03/09/17 08:35 55 16 35 03/09/17 08:00 35 03/09/17 08:00 97.5 42 18 128/50 99 Mechanical Ventilator 03/09/17 07:29 58 16 35 03/09/17 05:22 56 18 35 03/09/17 04:00 35 03/09/17 04:00 97.7 50 18 121/53 99 Mechanical Ventilator 03/09/17 03:34 66 03/09/17 03:07 63 16 35 03/09/17 02:00 66 03/09/17 01:21 56 16 35 03/09/17 00:00 35 03/08/17 23:20 97.8 66 18 145/67 99 Mechanical Ventilator 03/08/17 22:57 64 19 35 03/08/17 21:05 50 16 35 03/08/17 20:00 60 03/08/17 20:00 97.7 63 20 148/64 99 Mechanical Ventilator 03/08/17 20:00 35 03/08/17 19:28 51 17 35 03/08/17 16:56 57 18 35 03/08/17 16:04 35 03/08/17 16:00 49 03/08/17 16:00 97.5 16 143/68 58 Mechanical Ventilator 35 03/08/17 14:46 50 16 35 03/08/17 13:28 53 16 35 03/08/17 12:00 35 03/08/17 12:00 97.5 49 20 149/73 99 Mechanical Ventilator 35 03/08/17 11:56 51 03/08/17 11:20 45 16 35 03/08/17 09:23 44 16 35 Intake and Output 03/08/17 03/09/17 19:00 07:00 Intake Total 1743.000 ml 1666.666 ml Output Total 1850 ml 1195 ml Balance -107.000 ml 471.666 ml Free Water 150 ml 100 ml IV Total 873.000 ml 1086.666 ml Tube Feeding 720 ml 480 ml Output Urine Total 1850 ml 1195 ml # Bowel Movements 4 2 Laboratory Tests 03/09/17 04:03: White Blood Count 10.4, Red Blood Count 3.63L, Hemoglobin 11.4L, Hematocrit 35.2L, Mean Corpuscular Volume 97, Mean Corpuscular Hemoglobin 31.5H, Mean Corpuscular Hemoglobin Concent 32.5, Red Cell Distribution Width 13.1, Platelet Count 217, Mean Platelet Volume 9.6, Neutrophils (%) (Auto) 74.1, Lymphocytes (% ) (Auto) 19.3L, Monocytes (%) (Auto) 3.1, Eosinophils (%) (Auto) 2.9, Basophils (%) (Auto) 0.6, Sodium Level 142, Potassium Level 4.1, Chloride Level 104, Carbon Dioxide Level 23, Anion Gap 15, Blood Urea Nitrogen 11, Creatinine 0.5L, Estimat Glomerular Filtration Rate , Glucose Level 129H, Calcium Level 8.7 Height (Feet): 5 Height (Inches): 4.00 Weight (Pounds): 180 General Appearance: no apparent distress EENT: normal ENT inspection Neck: supple Cardiovascular: normal rate Respiratory/Chest: decreased breath sounds Abdomen: normal bowel sounds, non tender, soft Extremities: non-tender AMAIRANI JACOBS Mar 09, 2017 09:04
--- NOTE | 2017-03-09 10:40 | Infectious Diseases Prog Note ---
Assessment/Plan Problems: (1) Sepsis Assessment & Plan: due to pneumonia and UTI, improving on vancomycin and meropenem , blood culture is negative (2) Aspiration pneumonia Assessment & Plan: due to serratia marcescens, continue meropenem and vancomycin for 10 days EOT 03/12/17 (3) Acute and chronic respiratory failure Assessment & Plan: due to the above, improved, S/P mechanical ventilation , monitor CXR (4) Chronic respiratory failure Assessment & Plan: S/P Trach, continue trach care , titrate O2 as needed (5) Acute abdominal pain Assessment & Plan: CT abdomen didn't show any abdominal pathology , further management as per primary team (6) UTI (urinary tract infection) Assessment & Plan: with MDR Acinetobacter baumannii , on meropenem for 10 days Subjective ROS Limited/Unobtainable: Yes Allergies: Coded Allergies: No Known Allergies (Unverified , 02/27/17) Subjective he was awake and alert, communicating by nodding his head, afebrile. not on pressors. Objective Vital Signs Last 24 Hour Vital Signs Date Time Temp Pulse Resp B/P Pulse Ox O2 Delivery O2 Flow Rate FiO2 03/09/17 08:35 55 16 35 03/09/17 08:00 35 03/09/17 08:00 97.5 42 18 128/50 99 Mechanical Ventilator 03/09/17 07:29 58 16 35 03/09/17 05:22 56 18 35 03/09/17 04:00 35 03/09/17 04:00 97.7 50 18 121/53 99 Mechanical Ventilator 03/09/17 03:34 66 03/09/17 03:07 63 16 35 03/09/17 02:00 66 03/09/17 01:21 56 16 35 03/09/17 00:00 35 03/08/17 23:20 97.8 66 18 145/67 99 Mechanical Ventilator 35 03/08/17 22:57 64 19 35 03/08/17 21:05 50 16 35 03/08/17 20:00 60 03/08/17 20:00 97.7 63 20 148/64 99 Mechanical Ventilator 35 03/08/17 20:00 35 03/08/17 19:28 51 17 35 03/08/17 16:56 57 18 35 03/08/17 16:04 35 03/08/17 16:00 49 03/08/17 16:00 97.5 16 143/68 58 Mechanical Ventilator 35 03/08/17 14:46 50 16 35 03/08/17 13:28 53 16 35 03/08/17 12:00 35 03/08/17 12:00 97.5 49 20 149/73 99 Mechanical Ventilator 35 03/08/17 11:56 51 03/08/17 11:20 45 16 35 Height (Feet): 5 Height (Inches): 4.00 Weight (Pounds): 180 General Appearance: WD/WN, no acute distress HEENT: normocephalic, atraumatic, anicteric, mucous membranes moist, supple, no JVD, status post trach Respiratory/Chest: chest wall non-tender, normal breath sounds, no respiratory distress, no accessory muscle use Cardiovascular: normal peripheral pulses, normal rate, regular rhythm, no gallop/murmur, no JVD Abdomen: normal bowel sounds, soft, non tender, no organomegaly, non distended , no mass, no scars Extremities: no cyanosis, no clubbing Skin: no rash, ulcers Neurologic/Psychiatric: alert Lymphatic: no neck adenopathy, no groin adenopathy Musculoskeletal: normal muscle bulk, no effusion Laboratory Tests Test 03/09/17 04:03 03/09/17 09:30 White Blood Count 10.4 K/UL (4.8-10.8) Red Blood Count 3.63 M/UL (4.70-6.10) L Hemoglobin 11.4 G/DL (14.2-18.0) L Hematocrit 35.2 % (42.0-52.0) L Mean Corpuscular Volume 97 FL (80-99) Mean Corpuscular Hemoglobin 31.5 PG (27.0-31.0) H Mean Corpuscular Hemoglobin Concent 32.5 G/DL (32.0-36.0) Red Cell Distribution Width 13.1 % (11.6-14.8) Platelet Count 217 K/UL (150-450) Mean Platelet Volume 9.6 FL (6.5-10.1) Neutrophils (%) (Auto) 74.1 % (45.0-75.0) Lymphocytes (%) (Auto) 19.3 % (20.0-45.0) L Monocytes (%) (Auto) 3.1 % (1.0-10.0) Eosinophils (%) (Auto) 2.9 % (0.0-3.0) Basophils (%) (Auto) 0.6 % (0.0-2.0) Sodium Level 142 mEQ/L (135-145) Potassium Level 4.1 mEQ/L (3.4-4.9) Chloride Level 104 mEQ/L (98-107) Carbon Dioxide Level 23 mEQ/L (20-30) Anion Gap 15 (5-15) Blood Urea Nitrogen 11 mg/dL (7-23) Creatinine 0.5 mg/dL (0.7-1.2) L Estimat Glomerular Filtration Rate mL/min (>60) Glucose Level 129 mg/dL (74-106) H Calcium Level 8.7 mg/dL (8.6-10.2) Vancomycin Level Trough Pending Current Medications Medications (Trade) Dose Ordered Sig/Kevin Route PRN Reason Start Time Stop Time Status Last Admin Dose Admin Acetaminophen 650 mg 650 mg Q4H PRN GT Mild Pain/Temp > 100.5 03/03/17 22:45 04/02/17 22:44 Dextrose (Dextrose 50%) STAT PRN IV Hypoglycemia 02/27/17 13:45 03/29/17 13:44 Docusate Sodium (Colace) 100 mg THREE TIMES A DAY GT 03/04/17 09:00 04/03/17 08:59 03/06/17 09:22 Heparin Sodium (Porcine) (Heparin 5000 units/ml) 5,000 units EVERY 12 HOURS SUBQ 02/27/17 21:00 03/29/17 20:59 03/09/17 08:14 Lansoprazole (Prevacid) 30 mg DAILY GT 03/01/17 09:00 03/31/17 08:59 03/09/17 08:12 Levothyroxine Sodium 75 mcg 75 mcg ACBREAKFAST GT 03/02/17 06:30 04/01/17 06:29 03/09/17 06:06 Meropenem/Sodium Chloride (Merrem/Sodium Chloride) 110 ml @ 220 mls/hr Q12HR@0800,2000 IVPB 03/03/17 20:00 03/12/17 19:59 03/09/17 08:12 Ondansetron HCl (Zofran) 4 mg Q6H PRN IVP Nausea & Vomiting 02/27/17 13:45 03/29/17 13:44 Polyethylene Glycol (Miralax) 17 gm BEDTIME GT 02/28/17 21:00 03/30/17 20:59 03/05/17 21:20 Polyethylene Glycol 17 gm 17 gm DAILYPRN PRN GT Constipation 03/01/17 14:44 03/29/17 13:44 Sodium Chloride (Sodium Chloride 1000ml bag) 1,000 ml @ 50 mls/hr Q20H IV 03/01/17 22:10 03/31/17 22:09 03/08/17 06:00 Vancomycin HCl (Vanco rx to dose) 1 ea DAILY PRN MISC . 02/27/17 20:15 03/29/17 20:14 Vancomycin HCl/ Dextrose (Vancomycin/D5W) 275 ml @ 183.333 mls/hr Q12HR@1000,2200 IVPB 03/08/17 10:00 03/13/17 09:59 03/08/17 22:00 Papito Don M.D. Mar 09, 2017 10:40
[2017-03-09] MEDS: Vancomycin 750 MG in D5W 275 ML IVPB SCH ×2 (11:07→22:00)
--- NOTE | 2017-03-09 11:17 | Pulmonology Progress Note ---
Assessment/Plan Problems: (1) Acute and chronic respiratory failure (2) Aspiration pneumonia (3) Sepsis (4) UTI (urinary tract infection) Respiratory: monitor respiratory rate Cardiac: continue to monitor HR/BP Renal: F/U I&O Infectious Disease: check cultures Gastrointestinal: continue feedings/current rate, hold feedings Endocrine: monitor blood sugar, check TSH Hematologic: monitor H/H Neurologic: PRN Ativan, PRN Morphine Affect: PRN ativan Prophylaxis: Protonix, Heparin Notes Reviewed: cardio, renal Discussed with: nurses, consultants, lead case manager Subjective ROS Limited/Unobtainable: No Constitutional: Reports: no symptoms HEENT: Repors: no symptoms Respiratory: Reports: no symptoms, other Allergies: Coded Allergies: No Known Allergies (Unverified , 02/27/17) Objective Last 24 Hour Vital Signs Date Time Temp Pulse Resp B/P Pulse Ox O2 Delivery O2 Flow Rate FiO2 03/09/17 10:44 53 16 35 03/09/17 08:35 55 16 35 03/09/17 08:00 44 03/09/17 08:00 35 03/09/17 08:00 97.5 42 18 128/50 99 Mechanical Ventilator 03/09/17 07:29 58 16 35 03/09/17 05:22 56 18 35 03/09/17 04:00 35 03/09/17 04:00 97.7 50 18 121/53 99 Mechanical Ventilator 03/09/17 03:34 66 03/09/17 03:07 63 16 35 03/09/17 02:00 66 03/09/17 01:21 56 16 35 03/09/17 00:00 35 03/08/17 23:20 97.8 66 18 145/67 99 Mechanical Ventilator 03/08/17 22:57 64 19 35 03/08/17 21:05 50 16 35 03/08/17 20:00 60 03/08/17 20:00 97.7 63 20 148/64 99 Mechanical Ventilator 03/08/17 20:00 35 03/08/17 19:28 51 17 35 03/08/17 16:56 57 18 35 03/08/17 16:04 35 03/08/17 16:00 49 03/08/17 16:00 97.5 16 143/68 58 Mechanical Ventilator 03/08/17 14:46 50 16 35 03/08/17 13:28 53 16 35 03/08/17 12:00 35 03/08/17 12:00 97.5 49 20 149/73 99 Mechanical Ventilator 35 03/08/17 11:56 51 03/08/17 11:20 45 16 35 Intake and Output 03/08/17 03/09/17 19:00 07:00 Intake Total 1743.000 ml 1726.666 ml Output Total 1850 ml 1195 ml Balance -107.000 ml 531.666 ml Free Water 150 ml 100 ml IV Total 873.000 ml 1086.666 ml Tube Feeding 720 ml 540 ml Output Urine Total 1850 ml 1195 ml # Bowel Movements 4 2 General Appearance: WD/WN HEENT: normocephalic, atraumatic Respiratory/Chest: chest wall non-tender, lungs clear Cardiovascular: normal peripheral pulses, normal rate Abdomen: normal bowel sounds, soft, non tender Extremities: no cyanosis, no clubbing Skin: no rash Neurologic/Psychiatric: abnormal gait, normal mood/affect Laboratory Tests 03/09/17 04:03: White Blood Count 10.4, Red Blood Count 3.63L, Hemoglobin 11.4L, Hematocrit 35.2L, Mean Corpuscular Volume 97, Mean Corpuscular Hemoglobin 31.5H, Mean Corpuscular Hemoglobin Concent 32.5, Red Cell Distribution Width 13.1, Platelet Count 217, Mean Platelet Volume 9.6, Neutrophils (%) (Auto) 74.1, Lymphocytes (% ) (Auto) 19.3L, Monocytes (%) (Auto) 3.1, Eosinophils (%) (Auto) 2.9, Basophils (%) (Auto) 0.6, Sodium Level 142, Potassium Level 4.1, Chloride Level 104, Carbon Dioxide Level 23, Anion Gap 15, Blood Urea Nitrogen 11, Creatinine 0.5L, Estimat Glomerular Filtration Rate , Glucose Level 129H, Calcium Level 8.7 03/09/17 09:30: Vancomycin Level Trough 17.9H Current Medications Medications (Trade) Dose Ordered Sig/Kevin Route PRN Reason Start Time Stop Time Status Last Admin Dose Admin Acetaminophen 650 mg 650 mg Q4H PRN GT Mild Pain/Temp > 100.5 03/03/17 22:45 04/02/17 22:44 Dextrose (Dextrose 50%) STAT PRN IV Hypoglycemia 02/27/17 13:45 03/29/17 13:44 Docusate Sodium (Colace) 100 mg THREE TIMES A DAY GT 03/04/17 09:00 04/03/17 08:59 03/06/17 09:22 Heparin Sodium (Porcine) (Heparin 5000 units/ml) 5,000 units EVERY 12 HOURS SUBQ 02/27/17 21:00 03/29/17 20:59 03/09/17 08:14 Lansoprazole (Prevacid) 30 mg DAILY GT 03/01/17 09:00 03/31/17 08:59 03/09/17 08:12 Levothyroxine Sodium 75 mcg 75 mcg ACBREAKFAST GT 03/02/17 06:30 04/01/17 06:29 03/09/17 06:06 Meropenem/Sodium Chloride (Merrem/Sodium Chloride) 110 ml @ 220 mls/hr Q12HR@0800,2000 IVPB 03/03/17 20:00 03/12/17 19:59 03/09/17 08:12 Ondansetron HCl (Zofran) 4 mg Q6H PRN IVP Nausea & Vomiting 02/27/17 13:45 03/29/17 13:44 Polyethylene Glycol (Miralax) 17 gm BEDTIME GT 02/28/17 21:00 03/30/17 20:59 03/05/17 21:20 Polyethylene Glycol 17 gm 17 gm DAILYPRN PRN GT Constipation 03/01/17 14:44 03/29/17 13:44 Sodium Chloride (Sodium Chloride 1000ml bag) 1,000 ml @ 50 mls/hr Q20H IV 03/01/17 22:10 03/31/17 22:09 03/09/17 10:10 Vancomycin HCl (Vanco rx to dose) 1 ea DAILY PRN MISC . 02/27/17 20:15 03/29/17 20:14 Vancomycin HCl/ Dextrose (Vancomycin/D5W) 275 ml @ 183.333 mls/hr Q12HR@1000,2200 IVPB 03/08/17 10:00 03/13/17 09:59 03/09/17 11:07 CRISTIAN HURLEY Mar 09, 2017 11:17
[2017-03-09 12:00] VITALS: BP 119/52
--- NOTE | 2017-03-09 13:26 | Cardiac Electrophysiology PN ---
Assessment/Plan Assessment/Plan 1. Bradyarrhythmias due to SSS.Not due to a correctable cause. Off any GAMBOA or AVN shin. Will continue to monitor on tele.May need pacer if persistently bradycardic and after infection resolves.. 2. Hypertensive heart disease. 3. Vent Dependent Respiratory failure with tracheostomy. 4. Healthcare-acquired pneumonia. 5. Urinary tract infection. 6. S/P PEG. DW RN Subjective Subjective In SDU. Nathan down to 38. On vent via trach. Opens eyes. Nonverbal. Full code. Already accepted at [facility] pending bed. Objective Last 24 Hour Vital Signs Date Time Temp Pulse Resp B/P Pulse Ox O2 Delivery O2 Flow Rate FiO2 03/09/17 12:30 42 16 35 03/09/17 12:00 98.2 42 18 119/52 99 Mechanical Ventilator 35 03/09/17 12:00 35 03/09/17 10:44 53 16 35 03/09/17 08:35 55 16 35 03/09/17 08:00 44 03/09/17 08:00 35 03/09/17 08:00 97.5 42 18 128/50 99 Mechanical Ventilator 35 03/09/17 07:29 58 16 35 03/09/17 05:22 56 18 35 03/09/17 04:00 35 03/09/17 04:00 97.7 50 18 121/53 99 Mechanical Ventilator 35 03/09/17 03:34 66 03/09/17 03:07 63 16 35 03/09/17 02:00 66 03/09/17 01:21 56 16 35 03/09/17 00:00 35 03/08/17 23:20 97.8 66 18 145/67 99 Mechanical Ventilator 35 03/08/17 22:57 64 19 35 03/08/17 21:05 50 16 35 03/08/17 20:00 60 03/08/17 20:00 97.7 63 20 148/64 99 Mechanical Ventilator 03/08/17 20:00 35 03/08/17 19:28 51 17 35 03/08/17 16:56 57 18 35 03/08/17 16:04 35 03/08/17 16:00 49 03/08/17 16:00 97.5 16 143/68 58 Mechanical Ventilator 03/08/17 14:46 50 16 35 03/08/17 13:28 53 16 35 Intake and Output 03/08/17 03/09/17 19:00 07:00 Intake Total 1743.000 ml 1726.666 ml Output Total 1850 ml 1195 ml Balance -107.000 ml 531.666 ml Free Water 150 ml 100 ml IV Total 873.000 ml 1086.666 ml Tube Feeding 720 ml 540 ml Output Urine Total 1850 ml 1195 ml # Bowel Movements 4 2 Laboratory Tests Test 03/09/17 04:03 03/09/17 09:30 White Blood Count 10.4 K/UL (4.8-10.8) Red Blood Count 3.63 M/UL (4.70-6.10) L Hemoglobin 11.4 G/DL (14.2-18.0) L Hematocrit 35.2 % (42.0-52.0) L Mean Corpuscular Volume 97 FL (80-99) Mean Corpuscular Hemoglobin 31.5 PG (27.0-31.0) H Mean Corpuscular Hemoglobin Concent 32.5 G/DL (32.0-36.0) Red Cell Distribution Width 13.1 % (11.6-14.8) Platelet Count 217 K/UL (150-450) Mean Platelet Volume 9.6 FL (6.5-10.1) Neutrophils (%) (Auto) 74.1 % (45.0-75.0) Lymphocytes (%) (Auto) 19.3 % (20.0-45.0) L Monocytes (%) (Auto) 3.1 % (1.0-10.0) Eosinophils (%) (Auto) 2.9 % (0.0-3.0) Basophils (%) (Auto) 0.6 % (0.0-2.0) Sodium Level 142 mEQ/L (135-145) Potassium Level 4.1 mEQ/L (3.4-4.9) Chloride Level 104 mEQ/L (98-107) Carbon Dioxide Level 23 mEQ/L (20-30) Anion Gap 15 (5-15) Blood Urea Nitrogen 11 mg/dL (7-23) Creatinine 0.5 mg/dL (0.7-1.2) L Estimat Glomerular Filtration Rate mL/min (>60) Glucose Level 129 mg/dL (74-106) H Calcium Level 8.7 mg/dL (8.6-10.2) Vancomycin Level Trough 17.9 ug/mL (5.0-12.0) H Objective NECK: No JVD. Trach site intact. LUNGS: Few rhonchi. CARDIAC: Nathan S1 and S2 no gallop or murmur. ABDOMEN: Soft.PEG intact EXTREMITIES: No edema. SUSY HUANG Mar 09, 2017 13:26
[2017-03-09] MEDS ORDERED: NS 275ml ONE (13:56)
[2017-03-09] MEDS ORDERED: Tubing IV Secondary IV ONE (13:56)
[2017-03-09 16:00] VITALS: BP 110/56
[2017-03-09 20:00] VITALS: BP 116/59
[2017-03-09] MEDS: Miralax 17gm pkt GT SCH (20:33)
[2017-03-10] VITALS: BP 130/66
[2017-03-10 04:00] VITALS: BP 122/62
[2017-03-10 04:49] LABS: BASOPHILS % (AUTO) 0.9 % (0.0-2.0); EOSINOPHILS % (AUTO) 3.5 % (0.0-3.0); LYMPHOCYTES % (AUTO) 21.3 % (20.0-45.0); MEAN CORPUSCULAR HEMOGLOBIN 32.1 PG (27.0-31.0); MEAN CORPUSCULAR HGB CONC 33.1 G/DL (32.0-36.0); MEAN CORPUSCULAR VOLUME 97 FL (80-99); MEAN PLATELET VOLUME 10.1 FL (6.5-10.1); MONOCYTES % (AUTO) 7.9 % (1.0-10.0); NEUTROPHILS % (AUTO) 66.3 % (45.0-75.0); PLATELET COUNT 198 K/UL (150-450); RED BLOOD COUNT 3.58 M/UL (4.70-6.10); RED CELL DISTRIBUTION WIDTH 13.3 % (11.6-14.8); WHITE BLOOD COUNT 9.3 K/UL (4.8-10.8)
[2017-03-10 05:19] LABS: ANION GAP 15 (5-15); CALCIUM 8.8 mg/dL (8.6-10.2); CARBON DIOXIDE 24 mEQ/L (20-30); CHLORIDE 104 mEQ/L (98-107); CREATININE 0.5 mg/dL (0.7-1.2); HEMOLYSIS 4; SODIUM 143 mEQ/L (135-145)
[2017-03-10 08:00] VITALS: BP 158/74
[2017-03-10] MEDS: Meropenem 1 GM in NS 110 ML IVPB SCH (10:16)
[2017-03-10] MEDS: Heparin 5000 units/ml inj SUBQ SCH (10:17)
[2017-03-10] MEDS: Docusate 100mg/10ml Liq GT SCH ×3 (10:19→17:54)
[2017-03-10] MEDS: Vancomycin 750 MG in D5W 275 ML IVPB SCH (10:19)
[2017-03-10 12:00] VITALS: BP 158/74
--- NOTE | 2017-03-10 12:59 | GI Progress Note ---
Assessment/Plan Problems: (1) Hypoalbuminemia ICD Codes: E88.09 - Other disorders of plasma-protein metabolism, not elsewhere classified SNOMED: 219193892 (2) Constipation ICD Codes: K59.00 - Constipation, unspecified SNOMED: 70550245 (3) Acute abdominal pain ICD Codes: R10.9 - Unspecified abdominal pain SNOMED: 046072322 Status: unchanged Status Narrative Discussed with Dr. Medrano. Assessment/Plan stool ob negative supportive care GTFs per dietary >> Jevity 1.2 @60ml bowel regime >> colace + miralax monitor H&H, transfuse prn prevacid GT fu labs Subjective Subjective limited Objective Last 24 Hour Vital Signs Date Time Temp Pulse Resp B/P Pulse Ox O2 Delivery O2 Flow Rate FiO2 03/10/17 09:23 44 16 35 03/10/17 08:00 41 03/10/17 08:00 35 03/10/17 08:00 97.2 50 16 158/74 99 Mechanical Ventilator 35 03/10/17 07:29 41 16 35 03/10/17 05:24 50 16 35 03/10/17 04:00 97.6 49 18 122/62 100 Mechanical Ventilator 35 03/10/17 04:00 50 03/10/17 04:00 35 03/10/17 01:04 49 16 35 03/10/17 00:00 35 03/10/17 00:00 98.0 50 18 130/66 100 Mechanical Ventilator 35 03/10/17 00:00 50 03/09/17 23:10 53 16 35 03/09/17 21:20 51 16 35 03/09/17 20:00 98.5 50 17 116/59 100 Mechanical Ventilator 35 03/09/17 20:00 35 03/09/17 19:37 45 03/09/17 18:47 50 19 35 03/09/17 16:54 47 16 35 03/09/17 16:00 35 03/09/17 16:00 48 03/09/17 16:00 97.4 43 18 110/56 99 Mechanical Ventilator 35 03/09/17 14:55 46 16 35 Intake and Output 03/09/17 03/10/17 19:00 07:00 Intake Total 1806.3 ml 1770.000 ml Output Total 1300 ml 1600 ml Balance 506.3 ml 170.000 ml Free Water 100 ml 150 ml IV Total 936.3 ml 1020.000 ml Tube Feeding 720 ml 600 ml Other 50 ml Output Urine Total 1300 ml 1600 ml # Bowel Movements 8 2 Laboratory Tests Test 03/10/17 03:40 White Blood Count 9.3 K/UL (4.8-10.8) Red Blood Count 3.58 M/UL (4.70-6.10) L Hemoglobin 11.5 G/DL (14.2-18.0) L Hematocrit 34.7 % (42.0-52.0) L Mean Corpuscular Volume 97 FL (80-99) Mean Corpuscular Hemoglobin 32.1 PG (27.0-31.0) H Mean Corpuscular Hemoglobin Concent 33.1 G/DL (32.0-36.0) Red Cell Distribution Width 13.3 % (11.6-14.8) Platelet Count 198 K/UL (150-450) Mean Platelet Volume 10.1 FL (6.5-10.1) Neutrophils (%) (Auto) 66.3 % (45.0-75.0) Lymphocytes (%) (Auto) 21.3 % (20.0-45.0) Monocytes (%) (Auto) 7.9 % (1.0-10.0) Eosinophils (%) (Auto) 3.5 % (0.0-3.0) H Basophils (%) (Auto) 0.9 % (0.0-2.0) Sodium Level 143 mEQ/L (135-145) Potassium Level 4.0 mEQ/L (3.4-4.9) Chloride Level 104 mEQ/L (98-107) Carbon Dioxide Level 24 mEQ/L (20-30) Anion Gap 15 (5-15) Blood Urea Nitrogen 12 mg/dL (7-23) Creatinine 0.5 mg/dL (0.7-1.2) L Estimat Glomerular Filtration Rate mL/min (>60) Glucose Level 153 mg/dL (74-106) H Calcium Level 8.8 mg/dL (8.6-10.2) Height (Feet): 5 Height (Inches): 4.00 Weight (Pounds): 180 General Appearance: alert Cardiovascular: normal rate Respiratory/Chest: other - mech vent Abdominal Exam: GT site - c/d/i Lucero Thakkar N.P. Mar 10, 2017 12:59
--- NOTE | 2017-03-10 15:00 | Infectious Diseases Prog Note ---
Assessment/Plan Problems: (1) Sepsis Assessment & Plan: improving on vancomycin and meropenem , blood culture is negative. (2) Aspiration pneumonia Assessment & Plan: with serratia marcescens, improving on meropenem and vancomycin , will treat for 10 days. EOT 03/12/17 (3) Acute and chronic respiratory failure Assessment & Plan: due to the above, improved, S/P mechanical ventilation , monitor CXR (4) Chronic respiratory failure Assessment & Plan: S/P Trach, continue trach care , titrate O2 as needed (5) Acute abdominal pain Assessment & Plan: CT abdomen didn't show any abdominal pathology , further management as per primary team (6) UTI (urinary tract infection) Assessment & Plan: with MDR Acinetobacter baumannii , on meropenem for 10 days , EOT 03/12/17 Subjective ROS Limited/Unobtainable: Yes Allergies: Coded Allergies: No Known Allergies (Unverified , 02/27/17) Subjective he was awake and alert, communicating by nodding his head, afebrile. not on pressors. Objective Vital Signs Last 24 Hour Vital Signs Date Time Temp Pulse Resp B/P Pulse Ox O2 Delivery O2 Flow Rate FiO2 03/10/17 12:00 50 03/10/17 12:00 97.5 50 16 158/74 99 Mechanical Ventilator 35 03/10/17 12:00 35 03/10/17 09:23 44 16 35 03/10/17 08:00 41 03/10/17 08:00 35 03/10/17 08:00 97.2 50 16 158/74 99 Mechanical Ventilator 35 03/10/17 07:29 41 16 35 03/10/17 05:24 50 16 35 03/10/17 04:00 97.6 49 18 122/62 100 Mechanical Ventilator 35 03/10/17 04:00 50 03/10/17 04:00 35 03/10/17 01:04 49 16 35 03/10/17 00:00 35 03/10/17 00:00 98.0 50 18 130/66 100 Mechanical Ventilator 35 03/10/17 00:00 50 03/09/17 23:10 53 16 35 03/09/17 21:20 51 16 35 03/09/17 20:00 98.5 50 17 116/59 100 Mechanical Ventilator 35 03/09/17 20:00 35 03/09/17 19:37 45 03/09/17 18:47 50 19 35 03/09/17 16:54 47 16 35 03/09/17 16:00 35 03/09/17 16:00 48 03/09/17 16:00 97.4 43 18 110/56 99 Mechanical Ventilator 35 Height (Feet): 5 Height (Inches): 4.00 Weight (Pounds): 180 General Appearance: WD/WN, no acute distress HEENT: normocephalic, atraumatic, anicteric, mucous membranes moist, no JVD, status post trach Respiratory/Chest: chest wall non-tender, normal breath sounds, no respiratory distress, no accessory muscle use, decreased breath sounds Cardiovascular: normal peripheral pulses, normal rate, regular rhythm, regularly irregular, no gallop/murmur, no JVD Abdomen: normal bowel sounds, soft, non tender, no organomegaly, non distended , no mass, no scars Extremities: no cyanosis, no clubbing Skin: no rash, no lesions, ulcers Neurologic/Psychiatric: alert Musculoskeletal: normal muscle bulk Laboratory Tests Test 03/10/17 03:40 White Blood Count 9.3 K/UL (4.8-10.8) Red Blood Count 3.58 M/UL (4.70-6.10) L Hemoglobin 11.5 G/DL (14.2-18.0) L Hematocrit 34.7 % (42.0-52.0) L Mean Corpuscular Volume 97 FL (80-99) Mean Corpuscular Hemoglobin 32.1 PG (27.0-31.0) H Mean Corpuscular Hemoglobin Concent 33.1 G/DL (32.0-36.0) Red Cell Distribution Width 13.3 % (11.6-14.8) Platelet Count 198 K/UL (150-450) Mean Platelet Volume 10.1 FL (6.5-10.1) Neutrophils (%) (Auto) 66.3 % (45.0-75.0) Lymphocytes (%) (Auto) 21.3 % (20.0-45.0) Monocytes (%) (Auto) 7.9 % (1.0-10.0) Eosinophils (%) (Auto) 3.5 % (0.0-3.0) H Basophils (%) (Auto) 0.9 % (0.0-2.0) Sodium Level 143 mEQ/L (135-145) Potassium Level 4.0 mEQ/L (3.4-4.9) Chloride Level 104 mEQ/L (98-107) Carbon Dioxide Level 24 mEQ/L (20-30) Anion Gap 15 (5-15) Blood Urea Nitrogen 12 mg/dL (7-23) Creatinine 0.5 mg/dL (0.7-1.2) L Estimat Glomerular Filtration Rate mL/min (>60) Glucose Level 153 mg/dL (74-106) H Calcium Level 8.8 mg/dL (8.6-10.2) Current Medications Medications (Trade) Dose Ordered Sig/Kevin Route PRN Reason Start Time Stop Time Status Last Admin Dose Admin Acetaminophen 650 mg 650 mg Q4H PRN GT Mild Pain/Temp > 100.5 03/03/17 22:45 04/02/17 22:44 Dextrose (Dextrose 50%) STAT PRN IV Hypoglycemia 02/27/17 13:45 03/29/17 13:44 Docusate Sodium (Colace) 100 mg THREE TIMES A DAY GT 03/04/17 09:00 04/03/17 08:59 03/10/17 10:19 Heparin Sodium (Porcine) (Heparin 5000 units/ml) 5,000 units EVERY 12 HOURS SUBQ 02/27/17 21:00 03/29/17 20:59 03/10/17 10:17 Lansoprazole (Prevacid) 30 mg DAILY GT 03/01/17 09:00 03/31/17 08:59 03/10/17 10:16 Levothyroxine Sodium 75 mcg 75 mcg ACBREAKFAST GT 03/02/17 06:30 04/01/17 06:29 03/10/17 06:17 Meropenem/Sodium Chloride (Merrem/Sodium Chloride) 110 ml @ 220 mls/hr Q12HR@0800,2000 IVPB 03/03/17 20:00 03/12/17 19:59 03/10/17 10:16 Ondansetron HCl (Zofran) 4 mg Q6H PRN IVP Nausea & Vomiting 02/27/17 13:45 03/29/17 13:44 Polyethylene Glycol (Miralax) 17 gm BEDTIME GT 02/28/17 21:00 03/30/17 20:59 03/05/17 21:20 Polyethylene Glycol 17 gm 17 gm DAILYPRN PRN GT Constipation 03/01/17 14:44 03/29/17 13:44 Sodium Chloride (Sodium Chloride 1000ml bag) 1,000 ml @ 50 mls/hr Q20H IV 03/01/17 22:10 03/31/17 22:09 03/10/17 04:01 Vancomycin HCl (Vanco rx to dose) 1 ea DAILY PRN MISC . 02/27/17 20:15 03/29/17 20:14 Vancomycin HCl/ Dextrose (Vancomycin/D5W) 275 ml @ 183.333 mls/hr Q12HR@1000,2200 IVPB 03/08/17 10:00 03/13/17 09:59 03/10/17 10:19 Papito Don M.D. Mar 10, 2017 15:00
--- NOTE | 2017-03-10 15:31 | General Progress Note ---
Assessment/Plan Problem List: (1) Chronic respiratory failure ICD Codes: J96.10 - Chronic respiratory failure, unspecified whether with hypoxia or hypercapnia SNOMED: 36778294 (2) Aspiration pneumonia ICD Codes: J69.0 - Pneumonitis due to inhalation of food and vomit SNOMED: 762109823 (3) Sepsis ICD Codes: A41.9 - Sepsis, unspecified organism SNOMED: 15038421 (4) Acute and chronic respiratory failure ICD Codes: J96.20 - Acute and chronic respiratory failure, unspecified whether with hypoxia or hypercapnia SNOMED: 22126474, 40262026 (5) Bradycardia ICD Codes: R00.1 - Bradycardia, unspecified SNOMED: 45361078 (6) Acute abdominal pain ICD Codes: R10.9 - Unspecified abdominal pain SNOMED: 307406482 Status: stable, progressing, tolerating diet Assessment/Plan vent abx gi eval ot pt diet dc if clear by id and pulm Subjective Constitutional: Reports: weakness Allergies: Coded Allergies: No Known Allergies (Unverified , 02/27/17) All Systems: reviewed and negative except above Subjective trach vent altered Objective Last 24 Hour Vital Signs Date Time Temp Pulse Resp B/P Pulse Ox O2 Delivery O2 Flow Rate FiO2 03/10/17 12:00 50 03/10/17 12:00 97.5 50 16 158/74 99 Mechanical Ventilator 35 03/10/17 12:00 35 03/10/17 09:23 44 16 35 03/10/17 08:00 41 03/10/17 08:00 35 03/10/17 08:00 97.2 50 16 158/74 99 Mechanical Ventilator 03/10/17 07:29 41 16 35 03/10/17 05:24 50 16 35 03/10/17 04:00 97.6 49 18 122/62 100 Mechanical Ventilator 35 03/10/17 04:00 50 03/10/17 04:00 35 03/10/17 01:04 49 16 35 03/10/17 00:00 35 03/10/17 00:00 98.0 50 18 130/66 100 Mechanical Ventilator 35 03/10/17 00:00 50 03/09/17 23:10 53 16 35 03/09/17 21:20 51 16 35 03/09/17 20:00 98.5 50 17 116/59 100 Mechanical Ventilator 35 03/09/17 20:00 35 03/09/17 19:37 45 03/09/17 18:47 50 19 35 03/09/17 16:54 47 16 35 03/09/17 16:00 35 03/09/17 16:00 48 03/09/17 16:00 97.4 43 18 110/56 99 Mechanical Ventilator 35 Intake and Output 03/09/17 03/10/17 19:00 07:00 Intake Total 1806.3 ml 1770.000 ml Output Total 1300 ml 1600 ml Balance 506.3 ml 170.000 ml Free Water 100 ml 150 ml IV Total 936.3 ml 1020.000 ml Tube Feeding 720 ml 600 ml Other 50 ml Output Urine Total 1300 ml 1600 ml # Bowel Movements 8 2 Laboratory Tests 03/10/17 03:40: White Blood Count 9.3, Red Blood Count 3.58L, Hemoglobin 11.5L, Hematocrit 34.7L , Mean Corpuscular Volume 97, Mean Corpuscular Hemoglobin 32.1H, Mean Corpuscular Hemoglobin Concent 33.1, Red Cell Distribution Width 13.3, Platelet Count 198, Mean Platelet Volume 10.1, Neutrophils (%) (Auto) 66.3, Lymphocytes ( %) (Auto) 21.3, Monocytes (%) (Auto) 7.9, Eosinophils (%) (Auto) 3.5H, Basophils (%) (Auto) 0.9, Sodium Level 143, Potassium Level 4.0, Chloride Level 104, Carbon Dioxide Level 24, Anion Gap 15, Blood Urea Nitrogen 12, Creatinine 0.5L, Estimat Glomerular Filtration Rate , Glucose Level 153H, Calcium Level 8.8 Height (Feet): 5 Height (Inches): 4.00 Weight (Pounds): 180 General Appearance: lethargic EENT: normal ENT inspection Neck: normal alignment Cardiovascular: normal peripheral pulses, normal rate, regular rhythm Respiratory/Chest: chest wall non-tender, lungs clear, normal breath sounds Abdomen: normal bowel sounds, non tender, soft Extremities: normal inspection Edema: no edema noted Arm (L), no edema noted Arm (R), no edema noted Leg (L), no edema noted Leg (R), no edema noted Pedal (L), no edema noted Pedal (R), no edema noted Generalized Neurologic: motor weakness Skin: normal pigmentation, warm/dry HERNANDEZ,KOBE Mar 10, 2017 15:31
[2017-03-10 16:00] VITALS: BP 124/52
--- NOTE | 2017-03-10 16:09 | Cardiac Electrophysiology PN ---
Assessment/Plan Assessment/Plan 1. SSS.Not due to a correctable cause. Off any GAMBOA or AVN shin. Will continue to monitor on tele.May need pacer if persistently bradycardic and after ID clearance. 2. Hypertensive heart disease. 3. Vent Dependent Respiratory failure with tracheostomy. 4. Healthcare-acquired pneumonia.On Vancomycin and Meropenem 5. Urinary tract infection. 6. S/P PEG. DW RN Subjective Subjective In SDU. Nathan down to high 30s. On vent via trach. Opens eyes. Nonverbal. Full code. Awaiting bed at [place]. Objective Last 24 Hour Vital Signs Date Time Temp Pulse Resp B/P Pulse Ox O2 Delivery O2 Flow Rate FiO2 03/10/17 16:00 45 03/10/17 16:00 35 03/10/17 15:21 45 16 35 03/10/17 13:07 47 16 35 03/10/17 12:00 50 03/10/17 12:00 97.5 50 16 158/74 99 Mechanical Ventilator 35 03/10/17 12:00 35 03/10/17 10:56 45 16 35 03/10/17 09:23 44 16 35 03/10/17 08:00 41 03/10/17 08:00 35 03/10/17 08:00 97.2 50 16 158/74 99 Mechanical Ventilator 35 03/10/17 07:29 41 16 35 03/10/17 05:24 50 16 35 03/10/17 04:00 97.6 49 18 122/62 100 Mechanical Ventilator 35 03/10/17 04:00 50 03/10/17 04:00 35 03/10/17 01:04 49 16 35 03/10/17 00:00 35 03/10/17 00:00 98.0 50 18 130/66 100 Mechanical Ventilator 35 03/10/17 00:00 50 03/09/17 23:10 53 16 35 03/09/17 21:20 51 16 35 03/09/17 20:00 98.5 50 17 116/59 100 Mechanical Ventilator 35 03/09/17 20:00 35 03/09/17 19:37 45 03/09/17 18:47 50 19 35 03/09/17 16:54 47 16 35 Intake and Output 03/09/17 03/10/17 19:00 07:00 Intake Total 1806.3 ml 1770.000 ml Output Total 1300 ml 1600 ml Balance 506.3 ml 170.000 ml Free Water 100 ml 150 ml IV Total 936.3 ml 1020.000 ml Tube Feeding 720 ml 600 ml Other 50 ml Output Urine Total 1300 ml 1600 ml # Bowel Movements 8 2 Laboratory Tests Test 03/10/17 03:40 White Blood Count 9.3 K/UL (4.8-10.8) Red Blood Count 3.58 M/UL (4.70-6.10) L Hemoglobin 11.5 G/DL (14.2-18.0) L Hematocrit 34.7 % (42.0-52.0) L Mean Corpuscular Volume 97 FL (80-99) Mean Corpuscular Hemoglobin 32.1 PG (27.0-31.0) H Mean Corpuscular Hemoglobin Concent 33.1 G/DL (32.0-36.0) Red Cell Distribution Width 13.3 % (11.6-14.8) Platelet Count 198 K/UL (150-450) Mean Platelet Volume 10.1 FL (6.5-10.1) Neutrophils (%) (Auto) 66.3 % (45.0-75.0) Lymphocytes (%) (Auto) 21.3 % (20.0-45.0) Monocytes (%) (Auto) 7.9 % (1.0-10.0) Eosinophils (%) (Auto) 3.5 % (0.0-3.0) H Basophils (%) (Auto) 0.9 % (0.0-2.0) Sodium Level 143 mEQ/L (135-145) Potassium Level 4.0 mEQ/L (3.4-4.9) Chloride Level 104 mEQ/L (98-107) Carbon Dioxide Level 24 mEQ/L (20-30) Anion Gap 15 (5-15) Blood Urea Nitrogen 12 mg/dL (7-23) Creatinine 0.5 mg/dL (0.7-1.2) L Estimat Glomerular Filtration Rate mL/min (>60) Glucose Level 153 mg/dL (74-106) H Calcium Level 8.8 mg/dL (8.6-10.2) Objective NECK: No JVD. Trach site intact. LUNGS: Few rhonchi. CARDIAC: Nathan S1 and S2 no gallop or murmur. ABDOMEN: Soft.PEG intact EXTREMITIES: No edema. SUSY HUANG Mar 10, 2017 16:09
--- NOTE | 2017-03-10 18:38 | Pulmonology Progress Note ---
Assessment/Plan Problems: (1) Acute and chronic respiratory failure (2) Aspiration pneumonia (3) Sepsis (4) UTI (urinary tract infection) Subjective Allergies: Coded Allergies: No Known Allergies (Unverified , 02/27/17) Objective Last 24 Hour Vital Signs Date Time Temp Pulse Resp B/P Pulse Ox O2 Delivery O2 Flow Rate FiO2 03/10/17 17:30 55 17 35 03/10/17 16:00 45 03/10/17 16:00 97.7 49 17 124/52 98 Mechanical Ventilator 98 03/10/17 16:00 35 03/10/17 15:21 45 16 35 03/10/17 13:07 47 16 35 03/10/17 12:00 50 03/10/17 12:00 97.5 50 16 158/74 99 Mechanical Ventilator 35 03/10/17 12:00 35 03/10/17 10:56 45 16 35 03/10/17 09:23 44 16 35 03/10/17 08:00 41 03/10/17 08:00 35 03/10/17 08:00 97.2 50 16 158/74 99 Mechanical Ventilator 35 03/10/17 07:29 41 16 35 03/10/17 05:24 50 16 35 03/10/17 04:00 97.6 49 18 122/62 100 Mechanical Ventilator 35 03/10/17 04:00 50 03/10/17 04:00 35 03/10/17 01:04 49 16 35 03/10/17 00:00 35 03/10/17 00:00 98.0 50 18 130/66 100 Mechanical Ventilator 35 03/10/17 00:00 50 03/09/17 23:10 53 16 35 03/09/17 21:20 51 16 35 03/09/17 20:00 98.5 50 17 116/59 100 Mechanical Ventilator 35 03/09/17 20:00 35 03/09/17 19:37 45 03/09/17 18:47 50 19 35 Intake and Output 03/09/17 03/10/17 19:00 07:00 Intake Total 1806.3 ml 1830.000 ml Output Total 1300 ml 1600 ml Balance 506.3 ml 230.000 ml Free Water 100 ml 150 ml IV Total 936.3 ml 1020.000 ml Tube Feeding 720 ml 660 ml Other 50 ml Output Urine Total 1300 ml 1600 ml # Bowel Movements 8 2 Laboratory Tests 03/10/17 03:40: White Blood Count 9.3, Red Blood Count 3.58L, Hemoglobin 11.5L, Hematocrit 34.7L , Mean Corpuscular Volume 97, Mean Corpuscular Hemoglobin 32.1H, Mean Corpuscular Hemoglobin Concent 33.1, Red Cell Distribution Width 13.3, Platelet Count 198, Mean Platelet Volume 10.1, Neutrophils (%) (Auto) 66.3, Lymphocytes ( %) (Auto) 21.3, Monocytes (%) (Auto) 7.9, Eosinophils (%) (Auto) 3.5H, Basophils (%) (Auto) 0.9, Sodium Level 143, Potassium Level 4.0, Chloride Level 104, Carbon Dioxide Level 24, Anion Gap 15, Blood Urea Nitrogen 12, Creatinine 0.5L, Estimat Glomerular Filtration Rate , Glucose Level 153H, Calcium Level 8.8 Current Medications Medications (Trade) Dose Ordered Sig/Kevin Route PRN Reason Start Time Stop Time Status Last Admin Dose Admin Acetaminophen 650 mg 650 mg Q4H PRN GT Mild Pain/Temp > 100.5 03/03/17 22:45 04/02/17 22:44 Dextrose (Dextrose 50%) STAT PRN IV Hypoglycemia 02/27/17 13:45 03/29/17 13:44 Docusate Sodium (Colace) 100 mg THREE TIMES A DAY GT 03/04/17 09:00 04/03/17 08:59 03/10/17 17:54 Heparin Sodium (Porcine) (Heparin 5000 units/ml) 5,000 units EVERY 12 HOURS SUBQ 02/27/17 21:00 03/29/17 20:59 03/10/17 10:17 Lansoprazole (Prevacid) 30 mg DAILY GT 03/01/17 09:00 03/31/17 08:59 03/10/17 10:16 Levothyroxine Sodium 75 mcg 75 mcg ACBREAKFAST GT 03/02/17 06:30 04/01/17 06:29 03/10/17 06:17 Meropenem/Sodium Chloride (Merrem/Sodium Chloride) 110 ml @ 220 mls/hr Q12HR@0800,2000 IVPB 03/03/17 20:00 03/12/17 19:59 03/10/17 10:16 Ondansetron HCl (Zofran) 4 mg Q6H PRN IVP Nausea & Vomiting 02/27/17 13:45 03/29/17 13:44 Polyethylene Glycol (Miralax) 17 gm BEDTIME GT 02/28/17 21:00 03/30/17 20:59 03/05/17 21:20 Polyethylene Glycol 17 gm 17 gm DAILYPRN PRN GT Constipation 03/01/17 14:44 03/29/17 13:44 Sodium Chloride (Sodium Chloride 1000ml bag) 1,000 ml @ 50 mls/hr Q20H IV 03/01/17 22:10 03/31/17 22:09 03/10/17 04:01 Vancomycin HCl (Vanco rx to dose) 1 ea DAILY PRN MISC . 02/27/17 20:15 03/29/17 20:14 Vancomycin HCl/ Dextrose (Vancomycin/D5W) 275 ml @ 183.333 mls/hr Q12HR@1000,2200 IVPB 03/08/17 10:00 03/12/17 23:59 03/10/17 10:19 CRISTIAN HURLEY Mar 10, 2017 18:38
--- NOTE | 2017-03-11 12:16 | Discharge Summary ---
Discharge Summary Hospital Course Date of Admission Feb 27, 2017 at 13:09 Date of Discharge Mar 10, 2017 at 21:36 Admitting Diagnosis ABDOMINAL PAIN HPI Cbshashi Brambila is a 89 year old male who was admitted on Feb 27, 2017 at 13:09 for Abdominal Pain Hospital Course dc summary #[id number] Discharge Condition Upon Discharge: stable Discharge Disposition Patient was discharged to [facility] (63[facility] Discharge Diagnoses: [place] ([facility]),Nayely GODFREY Mar 11, 2017 12:16
--- NOTE | 2017-03-12 00:15 | Discharge Summary 2 SIG ---
DATE OF ADMISSION: 02/27/2017 DATE OF DISCHARGE: 03/10/2017 REASON FOR ADMISSION: 89-year-old male with a ventilator-dependent respiratory failure, tracheostomy, hypertension, dysphagia, and G-tube, was sent from the assisted facility due to the bradycardia, altered mental status and abdominal discomfort. The patient noted to be bradycardic at the long term and sent for further evaluation. There was no fever and no chills, but he did complain of abdominal discomfort. There was no nausea, no vomiting, no diarrhea and no chills. Workup in the emergency room revealed no respiratory distress, stable vital signs, and heart rate - 54. EKG shoed sinus bradycardia. No evidence of high degree of block. No respiratory distress on current settings. No leukocytosis. Stable hemoglobin and hematocrit. Stable renal parameters and electrolytes. LFT and lipase within normal limits. Lactic acid - 1.3. Urinalysis consistent with urinary tract infection with +3 leukocyte esterase, pyuria and moderate bacteria. Chest x-ray with possible pneumonia. The patient was admitted for further management. ADMITTING DIAGNOSES: 1. Ventilator-dependent respiratory failure, tracheostomy status. 2. Urinary tract infection. 3. Pneumonia. 4. Sepsis. 5. Bradycardia. 6. Dysphagia. 7. Abdominal distention and discomfort 8. Possible sepsis. HOSPITAL COURSE: The patient admitted. Septic workup initiated. The patient started on empiric antibiotics. ID consult requested. Urine culture positive for Acinetobacter. Sputum culture positive for Serratia. Blood culture negative. ID optimized antibiotic regimen and provided recommendation for antibiotics upon discharge. Ventilator and tracheostomy care were provided. Pulmonary toilet provided. ABG was done and was stable on current settings. Settings were kept as is and titrated to keep FiO2 above 92%. CT of the chest, abdomen and pelvis revealed dense left lower lobe pulmonary parenchymal consolidation, likely pneumonia. No definite acute hepatic abnormality, possible mild constipation, gastrostomy tube in good position, borderline splenomegaly, prostatomegaly and cholelithiasis. Subsequently, abdominal ultrasound was done due to the finding of cholelithiasis. Abdominal ultrasound revealed hepatomegaly and cholelithiasis, but no dilated common bile ducts. No gallstones. EKG showed profound bradycardia. Cardiology followed. According to kitman, the patient may need a permanent pacemaker if persistent bradycardia, however, it was not an urgent issue. Subsequently, Electrophysiology consult was requested. DVT and GI prophylaxis provided. Venous duplex of bilateral lower extremities was negative. Pain management was addressed. Bowel regimen instituted. Grinder Set Up Operator Thread seen and evaluated the patient and according to doorshaker, the patient had sick sinus syndrome, not due to any correctable course. The patient was off any SA node or AV node blockers. The patient was on telemetry to be monitored. According to doorshaker, the patient may need a pacer if persistently bradycardic, but after ID clearance, since the patient still have an active infection and receiving antibiotics. Strict aspiration precautions were maintained. G-tube feeding continued. The patient was able to tolerate tube feeding. Echocardiogram revealed ejection fraction of 40% and global left ventricular hypokinesis. According to kitman, the patient should not be on any drug therapy that have a negative chronotropic effect. Again, no urgent indication for permanent pacemaker. The patient not ambulatory. Volume status was closely monitored. Diuresis was done, based on clinical parameters. DVT prophylaxis provided. Bowel regimen instituted. The patient was stable for transfer to LTAC to complete IV antibiotic as recommended by ID. Outpatient follow up with the kitman if persistent bradycardia for possible placement of permanent pacemaker. DISCHARGE DIAGNOSES: 1. Sepsis. 2. Aspiration pneumonia with Serratia. 3. Urinary tract infection with Acinetobacter. 4. Sick sinus syndrome with bradyarrhythmia (hemodynamically stable). 5. Ventilator-dependent respiratory failure. 6. Tracheostomy status. 7. Hypertensive cardiomyopathy. 8. Chronic diastolic and systolic heart failure. 9. Hypertensive heart disease. 10. Dysphagia, gastrostomy tube. 11. Abdominal pain, possibly due to constipation versus urinary tract infection, resolved. DISCHARGE MEDICATIONS: Medication list was sent with the patient to [facility]. DISCHARGE INSTRUCTIONS: The patient was discharged to LTAC for IV antibiotics. Follow up with medical doctor and visitor information assistant at the hospital. Complete course of IV antibiotics. If persistent bradycardia, will need outpatient follow up with the kitman for permanent pacemaker. Saul Tang D.O. [facility]St[facility], [place]Chandra Howe DR: JANET JOB#: [id number] CC: NEO
== END 2017-03-10 21:36 | DRG 870 ==
LOC: EDBD 12:13 → EMR 13:03 → 2W 13:09 → EDBEDREQ 17:29 → 2W 20:52
PROC: 5A1955Z Respiratory Ventilation, Greater than 96 Consecutive Hours (ICD-10-PCS; principal; 2017-02-27)
DX: A41.9 Sepsis, unspecified organism (principal); J69.0 Pneumonitis due to inhalation of food and vomit; J96.21 Acute and chronic respiratory failure with hypoxia; Z99.11 Dependence on respirator [ventilator] status; Z93.0 Tracheostomy status; R13.10 Dysphagia, unspecified; I50.42 Chronic combined systolic (congestive) and diastolic (congestive) heart failure; E44.1 Mild protein-calorie malnutrition; I11.0 Hypertensive heart disease with heart failure; Z93.1 Gastrostomy status; I49.5 Sick sinus syndrome; E88.09 Other disorders of plasma-protein metabolism, not elsewhere classified; D64.9 Anemia, unspecified; E87.6 Hypokalemia; E83.39 Other disorders of phosphorus metabolism; I25.5 Ischemic cardiomyopathy; Z68.30 Body mass index [BMI] 30.0-30.9, adult; K59.00 Constipation, unspecified
CPT/HCPCS: 36415; 36600; 71010; 74176; 76700; 80048; 80053; 80069; 80202; 81003; 82270; 82378; 82550; 82803; 82962; 83540; 83550; 83605; 83690; 83735; 83880; 84100; 84443; 84484; 85025; 85610; 85730; 87040; 87070; 87081; 87086; 87181; 87205; 93005; 93306; 93970; 94002; 94003; 94664; C9399; J2405